=== PATIENT | male | born 1940 | race Caucasian/White ===

== ENCOUNTER 2019-10-01 09:15 | Outpatient (CLI) | payer MEDICARE, BC, OTHER, SELFPAY ==
[2019-10-01 09:52] LABS: Albumin Level 3.9 g/dL (3.5-5.1); Blood Urea Nitrogen 15 mg/dL (9-20); Calcium 8.7 mg/dL (8.4-10.2); Carbon Dioxide 27 mmol/L (22-30); Chloride 97 mmol/L (98-107); Estimated Glomerular Filt Rate > 60; Glucose 83 mg/dL (75-110); Phosphorus 3.3 mg/dL (2.5-4.5); Potassium 3.8 mmol/L (3.4-5.0); Sodium 133 mmol/L (137-145)
== END 2019-10-01 09:16 | disposition home or self-care (01) ==
PROVIDERS: PCP Nurse Practitioner Adult Health; Visit Provider Internal Medicine Nephrology
DX: N18.3 Chronic kidney disease, stage 3 (moderate) (principal); E87.1 Hypo-osmolality and hyponatremia
CPT/HCPCS: 36415; 80069; 84443

== ENCOUNTER → 2021-01-16 00:20 | Outpatient (CLI) | payer MEDICARE, BC, OTHER, SELFPAY ==
[2021-01-16 19:43] LABS: SARS-CoV-2 RNA PCR Negative
== END ==
PROVIDERS: PCP Nurse Practitioner Adult Health; Visit Provider Internal Medicine Gastroenterology
DX: Z01.812 Encounter for preprocedural laboratory examination (principal); Z20.822 Contact with and (suspected) exposure to COVID-19
CPT/HCPCS: C9803; U0003; U0005

== ENCOUNTER 2021-01-20 02:56 | Day surgery (SDC) | payer MEDICARE, BC, OTHER, SELFPAY ==
[2021-01-07 14:12] VITALS: BMI 25.7
--- NOTE | 2021-01-19 15:32 | P.PNAN_ITS ---
Anes - Initial Pre Proc Eval Procedure: Operation Date: 01/20/21 08:15 Proposed Procedures p Screening Colonoscopy - Eben Nunez MD Date/Time: 01/19/21 15:32 Surgeon: Eben Nunez MD Pre Op Diagnosis: hx of colon polyps Patient Data Age: 80 Gender: M Height: 1.88 m Weight: 91 kg Allergies Allergy/AdvReac Type Severity Reaction Status Date / Time No Known Allergies Allergy Verified 01/20/21 06:41 Home Medications Medication Instructions Recorded Confirmed Type alfuzosin 10 mg PO DAILY 01/07/21 01/07/21 History amlodipine 5 mg PO DAILY 01/07/21 01/07/21 History finasteride 5 mg PO DAILY 01/07/21 01/07/21 History sildenafil 25 mg PO DAILY PRN 01/07/21 01/07/21 History simvastatin 20 mg PO DAILY 01/07/21 01/07/21 History aspirin [Adult Aspirin] 325 mg PO DAILY 01/20/21 01/20/21 History Patient hx anesthesia problems: none Family hx anesthesia problems: none [facility] Past Medical History Medical History (Updated 01/19/21 @ 15:33 by Anselmo Henderson MD) Arthritis Atrial fibrillation BPH (benign prostatic hyperplasia) HTN (hypertension) Hypercholesterolemia Family History Family History (Updated 11/06/14 @ 08:44 by DOCTOR UNKNOWN) Mother Hypertension Father Acute myocardial infarction Social History Social History Smoking status: Never smoker Alcohol intake: current Alcohol use details: socially Substance use: never Living arrangements: with family Spiritual care concerns: No Anes - Eval Final PreProcedure Day of Procedure 01/19/21 15:32 Patient weight: normal Heart: regular rate and rhythm Lungs: clear to auscultation and normal air movement Airway: Mallampati scale class II Neurological: alert and oriented Last oral intake: >/= 8 hours ASA classification: III Emergent: no Anesthetic plan: proceed Anesthesia type and monitoring: general GIVS Informed Consent: The patient's anesthetic plan and its attendant risks and benefits were discussed with the patient/family/POA. Questions were solicited and answers provided to the satisfaction of the patient/family/POA.
[2021-01-20 06:44] VITALS: BP 138/81; PULSE 71; RESP 14; TEMP 36; O2SAT 98; BMI 25.3
[2021-01-20] MEDS: LACTATED RINGERS 1,000 ML 150 ML IV CONT (07:02)
--- NOTE | 2021-01-20 08:23 | WPDGICN ---
Assessment and Plan Assessment and plan (1) History of colon polyps: Code(s): Z86.010 - Personal history of colonic polyps Status: Acute Assessment and Plan: Patient has a distant history of colon polyps. Patient presents today for screening colonoscopy. High-fiber diet is advised. Further recommendations may be given after endoscopy. GI Consult Note Consult date/time: 01/20/21 08:23 HPI: Live Low is a 80 year old male Presents for screening colonoscopy. Patient reports that his bowel habits are normal. He denies abdominal pain. He has had no bleeding. Does have a prior history of colon polyps. Family history noncontributory. Patient presents today for screening colonoscopy. Review of Systems Review of Systems: All systems reviewed & are unremarkable except as noted in HPI and below PMFSH Past Medical History Medical History (Updated 01/20/21 @ 08:25 by Eben Nunez MD) Arthritis Atrial fibrillation BPH (benign prostatic hyperplasia) HTN (hypertension) Hypercholesterolemia Family History Family History (Updated 11/06/14 @ 08:44 by DOCTOR UNKNOWN) Mother Hypertension Father Acute myocardial infarction Social History Social History Smoking status: Never smoker Alcohol intake: current Alcohol use details: socially Substance use: never Living arrangements: with family Spiritual care concerns: No Meds Home Medications and Allergies Home Medications Medication Instructions Recorded Confirmed Type alfuzosin 10 mg PO DAILY 01/07/21 01/07/21 History amlodipine 5 mg PO DAILY 01/07/21 01/07/21 History finasteride 5 mg PO DAILY 01/07/21 01/07/21 History sildenafil 25 mg PO DAILY PRN 01/07/21 01/07/21 History simvastatin 20 mg PO DAILY 01/07/21 01/07/21 History aspirin [Adult Aspirin] 325 mg PO DAILY 01/20/21 01/20/21 History Allergies Allergy/AdvReac Type Severity Reaction Status Date / Time No Known Allergies Allergy Verified 01/20/21 06:41 Vital Signs Vital Signs - 24 hr 01/20/21 06:44 Temperature 96.8 F L Pulse Rate 71 Respiratory Rate 14 Blood Pressure 138/81 Pulse Oximetry 98 Exam Narrative: Exam Narrative: Physical exam reveals patient be alert. Vital signs stable. HEENT exam unremarkable. Patient is anicteric. Lungs are clear to auscultation and percussion. Heart is without murmur or extra sounds. Abdominal exam bowel sounds present soft nontender with no organomegaly. Digital external rectal exam is normal.
[2021-01-20 09:03] VITALS: BP 117/68; PULSE 63; RESP 14; O2SAT 93
[2021-01-20 09:13] VITALS: BP 126/71; PULSE 61; RESP 14; O2SAT 100
[2021-01-20 09:23] VITALS: BP 128/78; PULSE 60; RESP 14; O2SAT 99
== END 2021-01-20 09:52 | disposition home or self-care (01) ==
PROVIDERS: PCP Nurse Practitioner Adult Health; Visit Provider Internal Medicine Gastroenterology
PROC: 0DJD8ZZ Inspection of Lower Intestinal Tract, Via Natural or Artificial Opening Endoscopic (ICD-10-PCS; CPT 45378; principal; 2021-01-20 08:15)
DX: Z12.11 Encounter for screening for malignant neoplasm of colon (principal); D12.5 Benign neoplasm of sigmoid colon; K57.30 Diverticulosis of large intestine without perforation or abscess without bleeding; K64.8 Other hemorrhoids; K64.4 Residual hemorrhoidal skin tags; I48.91 Unspecified atrial fibrillation; I10 Essential (primary) hypertension; E78.00 Pure hypercholesterolemia, unspecified; N40.0 Benign prostatic hyperplasia without lower urinary tract symptoms; Z79.82 Long term (current) use of aspirin
CPT/HCPCS: 45385; 88305; J2001; J2704; J7120

== ENCOUNTER 2022-09-15 09:50 | Outpatient (CLI) | payer MEDICARE, BC, OTHER, SELFPAY ==
[2022-09-15 11:55] LABS: Albumin Level 4.2 g/dL (3.5-5.1)
[2022-09-15 11:57] LABS: Urine Cotinine NEGATIVE
[2022-09-15 12:10] LABS: Hemoglobin A1C 5.3 % (<5.7)
== END 2022-09-15 09:51 | disposition home or self-care (01) ==
PROVIDERS: PCP Nurse Practitioner Family; Visit Provider Orthopaedic Surgery
DX: Z01.818 Encounter for other preprocedural examination (principal); M16.11 Unilateral primary osteoarthritis, right hip
CPT/HCPCS: 80307; 82040; 83036; 87081

== ENCOUNTER 2022-11-23 09:04 | Outpatient (CLI) | payer MEDICARE, BC, OTHER, SELFPAY ==
[2022-11-23 09:58] LABS: Basophils Absolute Auto 0.1 K/mm3 (0.0-0.1); Basophils Percent Auto 1.4 % (0.2-1.2); Eosinophils Absolute Auto 0.1 K/mm3 (0-0.3); Eosinophils Percent Auto 2.4 % (0-4.4); Hematocrit 42.7 % (42.0-52.0); Hemoglobin 14.8 g/dL (14.0-18.0); Immature Granulocyte Absolute 0.01 K/mm3 (0.00-0.031); Immature Granulocyte Percent A 0.2 % (0-0.5); Lymphocytes Absolute Auto 0.85 K/mm3 (0.9-3.2); Lymphocytes Percent Auto 17.3 % (18.3-44.2); Mean Corpuscular HGB Conc 34.7 g/dl (32-36); Mean Corpuscular Hemoglobin 30.4 pg (26-34); Mean Corpuscular Volume 87.7 fl (80-100); Mean Platelet Volume 9.5 fl (7.4-10.4); Monocytes Absolute Auto 0.7 K/mm3 (0.1-0.6); Monocytes Percent Auto 13.8 % (2.6-8.5); Neutrophils Absolute Auto 3.2 K/mm3 (1.3-6.7); Neutrophils Percent Auto 64.9 % (45.5-73.1); Platelet Count Result 239 k/mm3 (150-375); Red Blood Count 4.87 M/mm3 (4.6-6.20); Red Cell Distribution Width 12.9 % (11.5-14.5); White Blood Count 4.9 K/mm3 (4.5-10.0)
[2022-11-23 10:38] LABS: Albumin Level 4.2 g/dL (3.5-5.1); Anion Gap 4 mmol/L (8-16); Blood Urea Nitrogen 15 mg/dL (9-20); Calcium 8.6 mg/dL (8.4-10.2); Carbon Dioxide 29 mmol/L (22-30); Chloride 104 mmol/L (98-107); Estimated Glomerular Filt Rate > 60; Glucose 94 mg/dL (65-110); Potassium 3.9 mmol/L (3.4-5.0); Sodium 137 mmol/L (137-145); Urine Cotinine NEGATIVE
== END 2022-11-23 09:05 | disposition home or self-care (01) ==
PROVIDERS: PCP Nurse Practitioner Family; Visit Provider Orthopaedic Surgery
DX: M16.11 Unilateral primary osteoarthritis, right hip (principal); Z01.818 Encounter for other preprocedural examination
CPT/HCPCS: 80048; 80307; 82040; 85025; 86850; 86900; 86901; 87081

== ENCOUNTER 2022-11-30 00:09 | Day surgery (SDC) | payer MEDICARE, BC, OTHER, SELFPAY ==
[2022-09-15 10:23] VITALS: BP 133/74; PULSE 74; RESP 16; TEMP 37.2; O2SAT 99; BMI 25.2
--- NOTE | 2022-09-15 10:28 | PC.NURSE ---
Report to the Outpatient Waiting Room, entrance under the green pavilion located off [facility], at time __6:00AM on date __10/05/22 . Planned Procedure Time: ___7:30AM . Time changes happen often and if your time is changed the preop area will call you the afternoon before. - You and your visitor will be asked to self-screen and do not enter if you have any COVID symptoms. - Only one visitor is requested with a max of two and NO children visitors are allowed at this time. - The patient visitor may be requested to leave or wait in car when not with patient due to distancing restrictions. - A mask is optional within the hospital. Patients may have clear liquids (water, carbonated beverages, clear teas, apple juice) until 3 hours prior to surgery with a maximum of 20 ounces. - No food from midnight until time of surgery Take the following medications with a SIP of water the morning of surgery: AMLODIPINE Medications to discontinue per physician HOLD ALL VITAMINS/SUPPLEMENTS(INCLUDING COQ10 & PREVAGEN), NSAIDS(IBUPROFEN)FOR 7 DAYS PRE-OP. REDUCE ASPIRIN TO 81MG DAILY 7 DAYS PRE-OP--09/28/[address] STEVENS Date to take last dose__09/28/22 Please no make-up, nail norwegian, hairspray, perfume, deodorant, or body powder the day of surgery. No jewelry (including any body piercings) or valuables the day of surgery, leave them at home. Please take a shower or bath the night before, or the morning of, surgery with an antibacterial soap. Wear comfortable, loose fitting clothing. Children are encouraged to wear pajamas. - Jewelry must be removed prior to entering the operating room. Rings and piercings that are not removed may be cut off. - The hospital will not accept responsibility for valuables. - Please leave all valuables, including medications, at home the day of surgery. If you are going home after surgery, a licensed wagon driver salesperson must drive you home. - NO public transportation without another adult if you receive anesthesia. - We recommend that an adult stay with you for 24 hours following discharge. - We also recommend that you do not drive, make important decision, drink alcoholic beverages, or take any drugs that were not prescribed by your health care provider for at least 24 hours after your discharge time. Follow any additional instructions given to you from your surgeon. If you or anyone in your household have experienced Covid symptoms in the past week, please notify your surgeon or the nurse liaison at the phone number below for possible testing. Telephone instructions given to __PATIENT and asked if any additional questions and then verbalized understanding. Patient advised to call surgeon office or pre surgery nurse liaison [phone] if any additional questions.
[2022-11-21 11:05] VITALS: BMI 25.2
--- NOTE | 2022-11-21 11:24 | PC.NURSE ---
Report to the Outpatient Waiting Room, entrance under the green pavilion located off [facility], at time __6:00AM on date __11/30/22 . Planned Procedure Time: __7:30AM . Time changes happen often and if your time is changed the preop area will call you the afternoon before. - You and your visitor will be asked to self-screen and do not enter if you have any COVID symptoms. - Only one visitor is requested with a max of two and NO children visitors are allowed at this time. - The patient visitor may be requested to leave or wait in car when not with patient due to distancing restrictions. - A mask is optional within the hospital at this time. Patients may have clear liquids (water, carbonated beverages, clear teas, apple juice) until 3 hours prior to surgery with a maximum of 20 ounces. - No food from midnight until time of surgery Take the following medications with a SIP of water the morning of surgery: ___AMLODIPINE DO NOT STOP ANY OF YOUR OTHER PRESCRIPTION MEDICATIONS PRIOR TO SURGERY ?EXCEPT THE FOLLOWING Medications to discontinue per physician ___HOLD ALL VITAMINS/SUPPLEMENTS 7 DAYS PRE-OP PER DR STEVENS(PER PATIENT), HOLD NSAIDS/IBUPROFEN 7 DAYS PRE-OP PER DR STVEENS, DECREASE DAILY ASPIRIN TO 81 MG STARTING 7 DAYS PRE-OP- STARTING 11/23/[address] STEVENS Date to take last dose____11/23/22 Please no make-up, nail tunisian, hairspray, perfume, deodorant, or body powder the day of surgery. No jewelry (including any body piercings) or valuables the day of surgery, leave them at home. Please take a shower or bath the night before, or the morning of, surgery with an antibacterial soap. Wear comfortable, loose fitting clothing. Children are encouraged to wear pajamas. - Jewelry must be removed prior to entering the operating room. Rings and piercings that are not removed may be cut off. - The hospital will not accept responsibility for valuables. - Please leave all valuables, including medications, at home the day of surgery. If you are going home after surgery, a licensed party bus driver must drive you home. - NO public transportation without another adult if you receive anesthesia. - We recommend that an adult stay with you for 24 hours following discharge. - We also recommend that you do not drive, make important decision, drink alcoholic beverages, or take any drugs that were not prescribed by your health care provider for at least 24 hours after your discharge time. Follow any additional instructions given to you from your surgeon. If you or anyone in your household have experienced Covid symptoms in the past week, please notify your surgeon or the nurse liaison at the phone number below for possible testing. Telephone instructions given to __PATIENT and asked if any additional questions and then verbalized understanding. Patient advised to call surgeon office or pre surgery nurse liaison [phone] if any additional questions.
--- NOTE | 2022-11-28 12:07 | PM.IMHP ---
H&P: [facility] History of Present Illness Date/Time: 11/28/22 12:07 Chief Complaint: DJD right hip Narrative: 82-year-old male patient who presents today for right anterior total hip arthroplasty. Patient's hip has been bothering him well over a year. At this point it is limiting his activities. He is finding it difficult to do activities of daily living without severe pain in the right hip. Most the pain is in the groin and anterior lateral hip. 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 He has tried different anti-inflammatories in the past without improvement of his symptoms. Patient feels this ready to proceed with total hip arthroplasty rather Than continue nonsurgical treatment. Review of Systems Review of Systems: All systems reviewed & are unremarkable except as noted in HPI and below PMFSH Past Medical History Medical History Arthritis Atrial fibrillation Basal cell carcinoma of skin BPH (benign prostatic hyperplasia) HTN (hypertension) Hypercholesterolemia Surgical History Surgical History H/O cardiac radiofrequency ablation 2014 & 2016 History of cataract extraction with lens replacement 2006 History of inguinal hernia repair, bilateral Lap BIH repair w/ 3DMax mesh 2015 History of ventral hernia repair Open ventral hernia repair with Proceed ventral patch 2014 Family History Family History Mother Hypertension Father Acute myocardial infarction Social History Social History Smoking status: Never smoker Alcohol intake: current Drinks per week: 3 Alcohol use details: approx 2 drinks per week Substance use: never Living arrangements: with family Additional living arrangements comments: Occupation/Education: retired Spiritual care concerns: No Meds Home Medications and Allergies Home Medications Medication Instructions Recorded Confirmed Type finasteride 5 mg tablet 5 mg PO DAILY 01/07/21 11/21/22 History sildenafil 25 mg tablet (Viagra) 25 mg PO DAILY PRN Sexual Activity 01/07/21 11/21/22 History amlodipine 10 mg tablet 10 mg PO QAM 02/15/21 11/21/22 History coenzyme Q10 30 mg capsule (CoQ-10) 30 mg PO DAILY 02/15/21 11/21/22 History psyllium husk 0.52 gram capsule 0.52 g PO DAILY PRN Constipation 02/15/21 11/21/22 History (Metamucil) ramipril 10 mg capsule 10 mg PO HS 02/15/21 11/21/22 History simvastatin 10 mg tablet 10 mg PO EVERY OTHER DAY 02/15/21 11/21/22 History vit C 250 mg-vit E 90 mg-zinc 40 1 tablet PO BID 02/15/21 11/21/22 History mg-copper 1 [id number] capsule (PreserVision AREDS-2) Prevagen 1 tab-cap PO DAILY 09/15/22 11/21/22 History aspirin 325 mg tablet 325 mg PO DAILY 09/15/22 11/21/22 History ibuprofen 200 mg capsule 200 mg PO Q6H PRN Pain 09/15/22 11/21/22 History triamcinolone acetonide 0.1 % 1 ea topical BID PRN Rash 09/15/22 11/21/22 History topical ointment Allergies Allergy/AdvReac Type Severity Reaction Status Date / Time No Known Allergies Allergy Verified 11/21/22 10:59 Exam Narrative: 82-year-old male alert pleasant. He is 6 ft 1 193 lb. His right hip flexes to 125, internal rotation 20 external rotation is 30. Range of motion causes some posterior lateral hip pain. He has normal abduction strength lateral position. No tenderness over the greater trochanter. Skin around the hip and groin crease are all normal. He has normal motor function in all muscle groups right lower extremity. 2+ posterior artery and 1 +Dorsalis pedis pulse. No edema in lower extremities. He has a normal stride when he walks. Resp: Auscultation: clear to auscultation bilaterally Cardio: Rate: regular rate Rhythm: regular rhythm Assessment and Plan Assessment and plan (1) Hip arthritis: Code(s
[2022-11-30] VITALS (14 sets, daily range): BP systolic 102–139; BP diastolic 51–78; PULSE 72–89; RESP 12–18; TEMP 36–36.5; O2SAT 100
--- NOTE | ~2022-11-30 | XR_ITS ---
XR hip RT 1V w AP pelvis DATE: 11/30/2022 11:21 INDICATION: Right total hip replacement TECHNIQUE: Postoperative AP and lateral views COMPARISON: None FINDINGS: Status post right total hip arthroplasty. There is expected immediately postoperative subcu taneous emphysema. Surgical drain overlies the right hip. IMPRESSION: Status post right total hip arthroplasty Reviewed, dictated and finalized at location B.
--- NOTE | ~2022-11-30 | XR_ITS ---
XR surgery orthopedic DATE: 11/30/2022 11:21 INDICATION: Right total hip replacement TECHNIQUE: Spot anteroposterior C-arm images of right hip 52.6 seconds fluoroscopy time 12.51 mGy COMPARISON: None FINDINGS: Status post right total hip arthroplasty with normal alignment of the acetabular and femora l components on this single AP view. IMPRESSION: Right total hip arthroplasty Reviewed, dictated and finalized at [facility]. Reviewed, dictated and finalized at location B.
[2022-11-30] MEDS: ACETAMINOPHEN 500 MG TABLET 1000 MG PO ×2 (06:31→18:15)
[2022-11-30] MEDS: LACTATED RINGERS 1,000 ML 30 ML IV CONT ×2 (06:38→11:23)
[2022-11-30] MEDS: TRANEXAMIC ACID 1,000MG/ISO100 1,000 MG/100 ML BAG 200 MG IVPB (07:06)
--- NOTE | 2022-11-30 07:07 | WPDANESEPPF ---
Anes - Initial Pre Proc Eval Procedure: Operation Date: 11/30/22 07:30 Proposed Procedures p Right Total Hip Arthroplasty, Anterior Approach - Javier Zazueta MD Date/Time: 11/30/22 07:07 Surgeon: Javier Zazueta MD Pre Op Diagnosis: O A Right Hip Patient Data Age: 82 Gender: M Height: 1.85 m Weight: 85.6 kg Last Vital Signs Temp 97.5 F L 11/30/22 06:12 Pulse 78 11/30/22 06:12 Resp 16 11/30/22 06:12 BP 139/75 11/30/22 06:12 Pulse Ox 100 11/30/22 06:12 O2 Del Method Room Air 11/30/22 06:12 Allergies Allergy/AdvReac Type Severity Reaction Status Date / Time No Known Allergies Allergy Verified 11/30/22 06:21 Home Medications Medication Instructions Recorded Confirmed Type finasteride 5 mg tablet 5 mg PO DAILY 01/07/21 11/30/22 History sildenafil 25 mg tablet (Viagra) 25 mg PO DAILY PRN Sexual Activity 01/07/21 11/30/22 History amlodipine 10 mg tablet 10 mg PO QAM 02/15/21 11/30/22 History coenzyme Q10 30 mg capsule (CoQ-10) 30 mg PO DAILY 02/15/21 11/30/22 History psyllium husk 0.52 gram capsule 0.52 g PO DAILY PRN Constipation 02/15/21 11/30/22 History (Metamucil) ramipril 10 mg capsule 10 mg PO HS 02/15/21 11/30/22 History simvastatin 10 mg tablet 10 mg PO EVERY OTHER DAY 02/15/21 11/30/22 History vit C 250 mg-vit E 90 mg-zinc 40 1 tablet PO BID 02/15/21 11/30/22 History mg-copper 1 [id number] capsule (PreserVision AREDS-2) Prevagen 1 tab-cap PO DAILY 09/15/22 11/30/22 History aspirin 325 mg tablet 325 mg PO DAILY 09/15/22 11/30/22 History ibuprofen 200 mg capsule 200 mg PO Q6H PRN Pain 09/15/22 11/30/22 History triamcinolone acetonide 0.1 % 1 ea topical BID PRN Rash 09/15/22 11/30/22 History topical ointment aspirin 81 mg tablet,delayed 81 mg PO DAILY 11/30/22 11/30/22 History release Patient hx anesthesia problems: none Family hx anesthesia problems: none Results Review: All pre-operative results and documents have been reviewed as part of the pre-operative evaluation. [facility] Past Medical History Medical History Arthritis Atrial fibrillation Basal cell carcinoma of skin BPH (benign prostatic hyperplasia) HTN (hypertension) Hypercholesterolemia Surgical History Surgical History H/O cardiac radiofrequency ablation 2014 & 2015 History of cataract extraction with lens replacement 2005 History of inguinal hernia repair, bilateral Lap BIH repair w/ 3DMax mesh 2014 History of ventral hernia repair Open ventral hernia repair with Proceed ventral patch 2014 Family History Family History Mother Hypertension Father Acute myocardial infarction Social History Social History Smoking status: Never smoker Alcohol intake: current Drinks per week: 3 Alcohol use details: approx 2 drinks per week Substance use: never Living arrangements: with family Additional living arrangements comments: Occupation/Education: retired Spiritual care concerns: No Anes - Eval Final PreProcedure Day of Procedure 11/30/22 07:07 Patient weight: normal Heart: regular rate and rhythm Lungs: clear to auscultation Airway: Mallampati scale class II Neurological: alert and oriented Last oral intake: >/= 8 hours ASA classification: III Emergent: no Anesthetic plan: proceed Anesthesia type and monitoring: general ETT and standard monitoring Results Review: All pre-operative results and documents have been reviewed as part of the pre-operative evaluation. Informed Consent: The patient's anesthetic plan and its attendant risks and benefits were discussed with the patient/family/POA. Questions were solicited and answers provided to the satisfaction of the patient/family/POA.
--- NOTE | 2022-11-30 07:12 | WPDHPUPDATE1 ---
History and Physical Update Update Date/Time: 11/30/22 07:12 History and Physical has been reviewed, including an updated exam of the patient. There are NO changes in the patient's condition. Risks, benefits, and alternatives have been discussed and questions answered. Patient agrees to proceed with procedure.
[2022-11-30] MEDS: ceFAZolin 2 GM/D5W 50 ML 2 GM/50 ML BAG IVPB (07:36)
[2022-11-30] MEDS: ceFAZolin SODIUM 1 GM VIAL 3 GM (08:43)
[2022-11-30] MEDS: TRANEXAMIC ACID 1,000 MG/10 ML AMPUL 1000 MG IV PUSH (10:48)
[2022-11-30] MEDS: ceFAZolin SODIUM 1 GM VIAL 2 GM IV PUSH (10:50)
--- NOTE | 2022-11-30 11:15 | W.PM.PROC2 ---
Procedure Note - Detailed Date of Procedure 11/30/22 Pre-op Diagnosis O A Right Hip Post-op Diagnosis Same Procedure Performed Right TEE Surgeon Javier Zazueta MD Speed [employer] Sander Moisés Anesthesia General Description of Procedure Patient was brought to the operating room and general anesthesia was administered. He received 2 g of Ancef weight based vancomycin 1 g of tranexamic acid preoperatively. A small diameter Christian catheter was placed. The feet were padded boots applied [facility] the right hip prepped draped usual fashion. A 10 cm longitudinal incision was made starting 3 cm lateral to the ASIS. The fascia over the tensor fascia dieter muscle was longitudinally incised and elevated off the anterior portion of the muscle. Branches of the ascending lateral femoral circumflex vessels were isolated ligated with suture divided. Retractor was placed along the anterior capsule the hip abducted and internally rotated and the gluteus minimus elevated off the lateral capsule. Inverted T capsulotomy performed femoral neck osteotomy made according to preoperative templating. Femoral head measured 55 mm in diameter was markedly hypertrophic. Acetabulum was exposed labrum excised residual articular cartilage curetted. The leg was externally rotated extended and the interval between conjoined tendon and piriformis incised which allowed piriformis to flipped posteriorly and the conjoined tendon to recess a little bit. With the leg back in the horizontal position and traction acetabulum was exposed and reamed to 54 mm which did not quite get to the periphery and we reamed to 55 and then like reaming with a 56. Fifty-six shell was impacted at 40? of abduction and anteversion such that the anterior shell was just under the anterior acetabular rim and posterior shell was a few mm proud of the posterior rim posterior superiorly. An excellent Press-Fit was achieved. A single screw was placed in the ilium. Thirty-six inner diameter polyethylene liner fully seated. This was a Depuy Bell cup. Large anterior inferior inferior osteophytes were removed. Next the femur was externally rotated extended and we broached up to a size 8. With the high offset 1.5 neck the hip was too tight and we could see that our neck cut and broach I was a little bit too high. We countersunk the broach and additional 3 mm and broached up to a size 9 which still had a little bit of with the family went to a size 10 which was rock solid. We trialed with the-2 head and this gave us appropriate soft tissue tension and Shuck and AP pelvis showed equal leg lengths. We calcar planed was surface and impacted the size 10 Actis high offset stem without difficulty. No cracks in the calcar. We trialed 1 last time with the-2 and had appropriate soft tissue tension and stability. The -2 stainless steel head was impacted on the clean and dried trunnion. The hip reduced stability reconfirmed. Wesley the superior capsular flap edges were reapproximated with 2 vicryl. I am going to estimate total blood loss at 450 approximately. Additional 2 g of Ancef and 1 g of TXA were given at time of wound closure. Bone quality was excellent we will allow weight-bearing as tolerated. No known complications. [employer] Estimated Blood Loss 450 Complications No immediate complications Condition Stable
--- NOTE | 2022-11-30 11:33 | PM.OP ---
Procedure Note - Brief Procedure Note - Brief Date of procedure: 11/30/22 Pre-op diagnosis: O A Right Hip Right hip DJD Procedure performed: Right anterior total hip arthroplasty Description of procedure: 82-year-old male who underwent right anterior total hip arthroplasty on 11/30. Was involved procedure including positioning patient on your table in 1st assisting to time surgery. Total time spent was 4 hours Surgeon: SANDRA Antonio
[2022-11-30] MEDS: fentaNYL CITRATE INJ (*CRX) 100 MCG/2 ML VIAL 25 MCG IV PUSH ×8 (11:40→12:16)
[2022-11-30] MEDS: oxyCODONE HCL (*CRX) 5 MG TAB IR PO ×3 (15:24→20:57)
[2022-11-30] MEDS: ceFAZolin 1 GM/NS 50 ML 1 GM/50 ML BAG IVPB (15:24)
--- NOTE | 2022-11-30 18:00 | WPDCN ---
Assessment and Plan Assessment and plan (1) Arthritis of right hip: Code(s): M16.11 - Unilateral primary osteoarthritis, right hip Status: Acute Assessment and Plan: Postoperative day 0 status post right total hip arthroplasty. Wound care, pain control, and DVT prophylaxis deferred to Dr. Zazueta. Agree with PT/OT. Baseline labs in a.m. (2) Postoperative urinary retention: Code(s): N99.89 - Other postprocedural complications and disorders of genitourinary system; R33.8 - Other retention of urine Status: Acute Assessment and Plan: Straight catheterization x1. Monitor strict I/O and bladder scan Q shift. (3) Hypertension: Code(s): I10 - Essential (primary) hypertension Status: Acute Assessment and Plan: Blood pressures were reviewed and they have been stable postoperatively. Continue antihypertensives and monitor. (4) Benign prostatic hyperplasia: Code(s): N40.0 - Benign prostatic hyperplasia without lower urinary tract symptoms Status: Acute Assessment and Plan: Continue finasteride. Monitor for retention as above. (5) Dyslipidemia: Code(s): E78.5 - Hyperlipidemia, unspecified Status: Acute Assessment and Plan: Resume simvastatin and check LFTs in a.m.. Plan Thank you for allowing us to participate in this patient's care. Please do not hesitate to contact us with any questions. HPI Data of Consult Date/Time: 11/30/22 18:00 Requesting Physician: Javier Zazueta MD Consult Narrative Reason for consult: Post operative medical managment. Narrative: This is a very pleasant 82-year-old male with right hip osteoarthritis, hypertension, hyperlipidemia, atrial fibrillation status post cardiac ablation, benign prostatic hyperplasia, and prostate cancer whom the hospitalist service has been consulted for help managing his medical conditions postoperatively. He has had longstanding right hip pain for years not amenable to conservative outpatient treatment he elected for replacement today. Surgery was performed under general anesthesia with no immediate complications documented an estimated blood loss of 450 mL. Postoperatively he is doing well and has minimal discomfort. He has some aching pain when ambulating but nothing that is unbearable. He has been up to the chair and to the bathroom with a walker without issue. He has not urinated since surgery despite having the urge. He denies fever, chills, sweats, chest pain, shortness a breath, nausea, and vomiting. He also denies paresthesias, skin color, and temperature changes distal to the surgical site. No history of venous thromboembolism. Review of Systems Review of Systems: Twelve systems were reviewed and are negative except for as per HPI. [facility] Past Medical History Medical History (Updated 11/30/22 @ 23:34 by Elena Juarez PA-C) Arthritis Atrial fibrillation Status post cardiac ablation. Basal cell carcinoma of skin Benign prostatic hyperplasia Dyslipidemia Hypertension Paroxysmal atrial flutter Surgical History Surgical History (Updated 11/30/22 @ 18:29 by Elena Juarez PA-C) History of bilateral cataract extraction History of cardiac radiofrequency ablation 2014 and 2015 History of cataract extraction with lens replacement (2005) History of colonoscopy with polypectomy History of inguinal hernia repair, bilateral (2014) Laparoscopic bilateral inguinal hernia repair w/ 3DMax mesh. History of tonsillectomy History of total right hip arthroplasty (11/30/22) History of umbilical hernia repair History of ventral hernia repair (2014) Open ventral hernia repair with Proceed ventral patch. Status post excision of lipoma Family History Family History (Updated 11/30/22 @ 18:27 by Elena Juarez PA-C) Mother Hypertension Congestive heart failure Father Acute myocardial infarction Social History Social History (Updated
[2022-11-30] MEDS: SENNA/DOCUSATE SODIUM TABLET 2 TAB PO (18:16)
[2022-11-30] MEDS: FAMOTIDINE 20 MG TABLET PO (20:57)
[2022-12-01 00:01] VITALS: PULSE 76
[2022-12-01] MEDS: oxyCODONE HCL (*CRX) 5 MG TAB IR PO ×3 (00:07→08:22)
[2022-12-01] MEDS: ceFAZolin 1 GM/NS 50 ML 1 GM/50 ML BAG IVPB ×2 (00:07→05:57)
[2022-12-01] MEDS: ACETAMINOPHEN 500 MG TABLET 1000 MG PO ×2 (00:07→05:56)
[2022-12-01 02:21] VITALS: BP 139/65; PULSE 82; RESP 14; TEMP 36.1; O2SAT 97
[2022-12-01 06:21] VITALS: BP 149/80; PULSE 78; RESP 16; TEMP 36.6; O2SAT 100
[2022-12-01 06:28] LABS: Basophils Percent Auto 0.3 % (0.2-1.2); Eosinophils Percent Auto 0.1 % (0-4.4); Hematocrit 35.6 % (42.0-52.0); Hemoglobin 11.8 g/dL (14.0-18.0); Immature Granulocyte Absolute 0.07 K/mm3 (0.00-0.031); Immature Granulocyte Percent A 0.5 % (0-0.5); Lymphocytes Absolute Auto 0.78 K/mm3 (0.9-3.2); Lymphocytes Percent Auto 5.6 % (18.3-44.2); Mean Corpuscular HGB Conc 33.1 g/dl (32-36); Mean Corpuscular Hemoglobin 30.4 pg (26-34); Mean Corpuscular Volume 91.8 fl (80-100); Monocytes Absolute Auto 1.9 K/mm3 (0.1-0.6); Monocytes Percent Auto 13.6 % (2.6-8.5); Neutrophils Absolute Auto 11.1 K/mm3 (1.3-6.7); Neutrophils Percent Auto 79.9 % (45.5-73.1); Platelet Count Result 191 k/mm3 (150-375); Red Blood Count 3.88 M/mm3 (4.6-6.20); Red Cell Distribution Width 12.9 % (11.5-14.5); White Blood Count 13.9 K/mm3 (4.5-10.0)
[2022-12-01 06:37] LABS: Alanine Aminotransferase 18 U/L (6-50); Albumin Level 3.2 g/dL (3.5-5.1); Alkaline Phosphatase 54 U/L (38-126); Anion Gap 3 mmol/L (8-16); Aspartate Amino Transferase 25 U/L (17-59); Bilirubin,Total 0.6 mg/dL (0.2-1.3); Blood Urea Nitrogen 16 mg/dL (9-20); Carbon Dioxide 26 mmol/L (22-30); Chloride 103 mmol/L (98-107); Estimated CRCL calculation 51 ml/min; Estimated Glomerular Filt Rate > 60; Glucose 119 mg/dL (65-110); Magnesium 2.2 mg/dL (1.6-2.3); Sodium 132 mmol/L (137-145)
--- NOTE | 2022-12-01 07:00 | PC.NURSE ---
Patient tonight was retaining urine last night, (which was observed through a bladder scan and had an output of 632) so did a straight catheterization on patient and had an output of 425 output from patient (in addition prior patient was able to have an output of 200. Throughout the rest of the shift patient had difficulties urinating and after the straight cath patient was having urine with blood tinge color and small blood clots in the urine.
[2022-12-01 07:37] VITALS: PULSE 73
--- NOTE | 2022-12-01 07:46 | PM.PNORT ---
Subjective Subjective Date/Time Seen: 12/01/22 07:46 postop day 1 patient is alert. Afebrile vital signs are stable. Morning labs are noted. Patient is having blood in his urine last night. It has improved this morning to being only a scant amount. He has a history of BPH. He has been urinating well. He did require straight cath last night but was urinating this morning when arrived. He is having no pain with urination. His drain is out. Pain is well tolerated. Dressing is dry and intact. Neurovascularly he is intact. Will plan to have the patient work with physical therapy this morning if he continues to do well he will be discharged home later this morning. I strongly advised patient that if he has changes in the blood in the urine of any worsening he needs to call his urologist. It has been improving overnight and I think that most likely this will continue to improve. He did have Christian catheter at the time of surgery which probably caused some irritation of his prostate. Patient is going to monitor this at home. Objective Data Vital Signs Vital Signs: Vital Signs - 24 hr 11/30/22 11:23 11/30/22 11:35 11/30/22 11:50 Temperature 36.1 C L Pulse Rate 72 85 81 Respiratory Rate 13 12 12 Blood Pressure 102/51 L 121/63 129/68 Pulse Oximetry 100 100 100 Oxygen Delivery Simple Face Mask Simple Face Mask Simple Face Mask Oxygen Flow Rate 6 6 6 11/30/22 11:55 11/30/22 12:05 11/30/22 12:20 Temperature 36.5 C Pulse Rate 80 80 Respiratory Rate 14 16 Blood Pressure 128/75 125/67 Pulse Oximetry 100 100 Oxygen Delivery Room Air Room Air Room Air Oxygen Flow Rate 11/30/22 12:35 11/30/22 14:15 11/30/22 12:36 Temperature 36.1 C L Pulse Rate 81 89 Respiratory Rate 14 17 Blood Pressure 118/78 115/70 Pulse Oximetry 100 100 Oxygen Delivery Room Air Room Air Oxygen Flow Rate 11/30/22 12:51 11/30/22 13:21 11/30/22 14:21 Temperature 36.0 C L 36.3 C L 36.4 C L Pulse Rate 82 81 82 Respiratory Rate 18 18 18 Blood Pressure 130/63 125/62 130/62 Pulse Oximetry 100 100 100 Oxygen Delivery Oxygen Flow Rate 11/30/22 18:21 11/30/22 15:04 11/30/22 20:35 Temperature 36.3 C L 36.0 C L Pulse Rate 84 78 Respiratory Rate 17 16 Blood Pressure 122/70 138/69 Pulse Oximetry 100 100 Oxygen Delivery Room Air Oxygen Flow Rate 12/01/22 02:06 11/30/22 20:00 12/01/22 00:01 Temperature Pulse Rate 76 76 Respiratory Rate Blood Pressure Pulse Oximetry Oxygen Delivery Room Air Oxygen Flow Rate 12/01/22 07:37 Temperature Pulse Rate 73 Respiratory Rate Blood Pressure Pulse Oximetry Oxygen Delivery Oxygen Flow Rate Intake/Output Intake/Output: Intake & Output 11/28/22 11/29/22 11/30/22 12/01/22 23:59 23:59 23:59 23:59 Intake Total 1140 50 Output Total 425 45 Balance 715 5 Meds/Results Medications: Active Medications Generic Name Dose Route Start Last Admin Trade Name Freq PRN Reason Stop Dose Admin Acetaminophen 1,000 mg 11/30/22 18:00 12/01/22 05:56 Acetaminophen 500 Mg Tablet PO 1,000 mg Q6HR [facility] Administration Amlodipine Besylate 10 mg 12/01/22 09:00 Amlodipine Besylate 5 Mg Tablet PO QAM [facility] Apixaban 2.5 mg 12/01/22 09:00 Apixaban 2.5 Mg Tablet PO 12/12/22 21:01 Q12HR ADRYAN Aspirin 81 mg 12/01/22 09:00 Aspirin 81 Mg Enteric Tablet PO DAILY ADRYAN Celecoxib 100 mg 12/01/22 08:00 Celecoxib 100 Mg Capsule PO DAILY@0800 [facility] Diphenhydramine HCl 25 mg 11/30/22 12:36 Diphenhydramine Hcl Inj 50 Mg/Ml Vial IV PUSH Q6H PRN Itching Doxycycline Hyclate 100 mg 12/01/22 09:00 Doxycycline Hyclate 100 Mg Tablet PO Q12HR [facility] Famotidine 20 mg 11/30/22 21:00 11/30/22 20:57 Famotidine 20 Mg Tablet PO 20 mg Q12HR [facility] Administration Finasteride 5 mg 12/01/22 09:00 Finasteride 5 Mg Tablet PO DAILY [facility] Naloxone HCl 0.1 mg 11/30/22 12:
--- NOTE | 2022-12-01 07:52 | PM.DS ---
DS: Admitting Diagnosis Discharge Date 12/01 Admitting Diagnosis Right hip DJD DS: Discharge Diagnosis Discharge Diagnosis (1) Arthritis of right hip: Code(s): M16.11 - Unilateral primary osteoarthritis, right hip Status: Acute DS: Summary Hospital Course Hospital Course: 82-year-old male who underwent right anterior total hip arthroplasty on 11/30. Underwent the procedure without complications. Postoperatively he has been afebrile vital signs stable. Neurovascular is intact. His drain has been removed. He was up walking the day of surgery he is comfortable. Pain overall is well controlled. He is on scheduled Tylenol as well as oxycodone 5 mg. He is also on Celebrex 100 mg a day for 10 days for heterotopic bone prophylaxis. He did have blood in his urine postoperatively on the day of surgery. It has improved significantly on the morning of postop day 1 there was only a scant amount. Patient has history of BPH. He has been urinating well. He did require straight catheterization the day of surgery that night. Both urinating on the morning of postop day 1. He is having no pain with urination overall he is doing well. Dressing is dry and intact. He is on Eliquis for DVT prophylaxis he will be discharged home. Will go home with 1 week of doxycycline. He is going to be on oxycodone Tylenol for pain control. He will also go home on Senokot and MiraLax for constipation. Patient was advised to keep leg elevated home prevent swelling but may be up walking every hour. Using a walker at this point. He was advised any questions or concerns she is to call the office otherwise we will see him at his appointment dates. I also advised patient if there is worsening of any of the blood in his urine and he needs to call his urologist immediately and he will keep that in mind. Time Spent with Patient Time attestation: Total time spent providing and/or coordinating discharge services: DS: Data Data Completed and Pending Labs on day of discharge: Labs from last 24 hours 12/01/22 12/01/22 05:50 05:49 WBC 13.9 H RBC 3.88 L Hgb 11.8 L D Hct 35.6 L MCV 91.8 MCH 30.4 MCHC 33.1 RDW 12.9 Plt Count 191 MPV 10.0 Immature Gran % (Auto) 0.5 Neut % (Auto) 79.9 H Lymph % (Auto) 5.6 L Lassen % (Auto) 13.6 H Eos % (Auto) 0.1 Baso % (Auto) 0.3 Lymph # (Auto) 0.78 L Lassen # (Auto) 1.9 H Eos # (Auto) 0.0 Baso # (Auto) 0.0 Abs Immat Gran (auto) 0.07 H Absolute Neuts (auto) 11.1 H Absolute Nucleated RBC 0.0 Nucleated RBC % 0.0 Sodium 132 L Potassium 4.0 Chloride 103 Carbon Dioxide 26 Anion Gap 3 L BUN 16 Creatinine 1.10 Estim Creat Clear Calc 51 Estimated GFR > 60 Glucose 119 H Calcium 8.0 L Magnesium 2.2 Total Bilirubin 0.6 Direct Bilirubin 0.0 AST 25 ALT 18 Alkaline Phosphatase 54 Total Protein 6.0 L Albumin 3.2 L Discharge Plan Discharge Patient Disposition: Home, Self-Care Discharge Instructions: JAVIER ZAZUETA M.D [facility], [address] [address] POST-OPERATIVE DISCHARGE INSTRUCTIONS ANTERIOR TOTAL HIP ARTHROPLASTY 1. Move toes/feet up and down every hour while awake. 2. Be up walking every hour while awake. 3. Use cane in hand opposite of side of hip surgery or walker as comfort allows. Avoid sitting in a chair unless eating, receiving visitors or using the toilet. 4. When resting, lie on back with leg elevated above heart to minimize swelling. Significant swelling could indicate a blood clot and if this occurs, call the office (or go to the ER) to have a venous ultrasound performed. 5. Wound Care: Keep dry sponge on wound for 2 weeks. Use minimal tape. 6. Follow weight bearing status as instructed. 7. May shower with dressing off. Stand Alone Forms: General Discharge Instructions Follow-up/Referrals: Javier Zazueta
[2022-12-01 08:00] VITALS: PULSE 70
[2022-12-01] MEDS: CELECOXIB 100 MG CAPSULE PO (08:22)
[2022-12-01] MEDS: amLODIPine BESYLATE 5 MG TABLET 10 MG PO (08:22)
[2022-12-01] MEDS: DOXYCYCLINE HYCLATE 100 MG TABLET PO (08:22)
[2022-12-01] MEDS: FAMOTIDINE 20 MG TABLET PO (08:22)
[2022-12-01] MEDS: FINASTERIDE 5 MG TABLET PO (08:22)
[2022-12-01] MEDS: APIXABAN 2.5 MG TABLET PO (08:22)
[2022-12-01] MEDS: ASPIRIN 81 MG ENTERIC TABLET PO (08:23)
[2022-12-01] MEDS: polyethylene glycoL 3350 17 GM POWD.PACK PO (08:23)
[2022-12-01] MEDS: SENNA/DOCUSATE SODIUM TABLET 2 TAB PO (08:23)
--- NOTE | 2022-12-01 09:45 | PM.IMPN ---
Progress Note: A&P Assessment and Plan (1) Arthritis of right hip: Code(s): M16.11 - Unilateral primary osteoarthritis, right hip Status: Acute Assessment and Plan: Postoperative day 1 status post right total hip arthroplasty. Wound care, pain control, and DVT prophylaxis deferred to Dr. Zazueta. Agree with PT/OT. Baseline labs in a.m. (2) Postoperative urinary retention: Code(s): N99.89 - Other postprocedural complications and disorders of genitourinary system; R33.8 - Other retention of urine Status: Acute Assessment and Plan: Straight catheterization x1. Monitor strict I/O and bladder scan Q shift. (3) Hypertension: Code(s): I10 - Essential (primary) hypertension Status: Acute Assessment and Plan: Blood pressures were reviewed and they have been stable postoperatively. Continue antihypertensives and monitor. (4) Benign prostatic hyperplasia: Code(s): N40.0 - Benign prostatic hyperplasia without lower urinary tract symptoms Status: Acute Assessment and Plan: Continue finasteride. Monitor for retention as above. (5) Dyslipidemia: Code(s): E78.5 - Hyperlipidemia, unspecified Status: Acute Assessment and Plan: Resume simvastatin and check LFTs in a.m.. Time Spent With Patient Time: 48 minutes Time with patient: Greater than 35 minutes Subjective Date/time seen: 12/01/22944 Interval history: 12/01/22944 Patient is doing ok. He is ready to go. He does have some pain which he stated that it was a 5/10 in the right leg. Labs and vital signs look good. Went over the results with him and answered all his questions. Stable at this time for discharge. 11/30/22? 18:00 This is a very pleasant 82-year-old male with right hip osteoarthritis, hypertension, hyperlipidemia, atrial fibrillation status post cardiac ablation, benign prostatic hyperplasia, and prostate cancer whom the hospitalist service has been consulted for help managing his medical conditions postoperatively. He has had longstanding right hip pain for years not amenable to conservative outpatient treatment he elected for replacement today. Surgery was performed under general anesthesia with no immediate complications documented an estimated blood loss of 450 mL. Postoperatively he is doing well and has minimal discomfort. He has some aching pain when ambulating but nothing that is unbearable. He has been up to the chair and to the bathroom with a walker without issue. He has not urinated since surgery despite having the urge. He denies fever, chills, sweats, chest pain, shortness a breath, nausea, and vomiting. He also denies paresthesias, skin color, and temperature changes distal to the surgical site. No history of venous thromboembolism. Review of Systems Review of Systems: All systems reviewed & are unremarkable except as noted in HPI and below Exam Narrative: General: well-nourished, well-appearing 82-year-old female, sitting up in chair, comfortable, NARD Neuro: awake, alert and oriented x4, speech clear, no focal neuro deficits noted HEENMT: normocephalic, atraumatic, EOMI, sclerae anicteric, moist oral mucosa Respiratory: Clear to auscultation bilaterally without crackles, rhonchi or wheezes, nonlabored breathing Cardio: regular rate, regular rhythm with S1-S2 Abdomen: nondistended, normoactive bowel sounds, soft, nontender to palpation Extremities: no edema, erythema, or tenderness to palpation, DP pulses 2+ bilaterally, right hip with dressing dry and intact Skin: no rashes or lesions, warm and dry, right hip dressing intact Psych: appropriate mood and affect, judgment and insight intact Objective Data Vital Signs Vital Signs: Vital Signs - 24 hr 11/30/22 12:05 11/30/22 12:20 11/30/22 12:35 Temperature 97.7 F Pulse Rate 80 80 81 Respiratory Rate 14 16 14 Blood Pressure 128/75 125/67 118/78 Pulse Oximetry 100 100 100 Oxygen Deliv
--- NOTE | 2022-12-01 09:50 | P.PNAN_ITS ---
Anes - Prog Note Post-Op Date/Time: 12/01/22 09:50 Cardiovascular status: normal Respiratory status: normal Airway patency: baseline Mental status: baseline Post-Op hydration status: normal Vital Signs: Last Vital Signs Temp 36.6 C 12/01/22 06:21 Pulse 73 12/01/22 07:37 Resp 16 12/01/22 06:21 BP 149/80 H 12/01/22 06:21 Pulse Ox 100 12/01/22 06:21 O2 Del Method Room Air 12/01/22 02:06 O2 Flow Rate 6 11/30/22 11:50 Pain Score (VAS): 11/11 I/O: Intake & Output 11/30/22 12/01/22 12/01/22 23:59 07:59 15:59 Intake Total 490 300 Output Total 425 1545 Balance 65 -1245 Laboratory Tests 12/01/22 05:50 12/01/22 05:49 12/01/22 12/01/22 05:49 05:50 WBC 13.9 H RBC 3.88 L Hgb 11.8 L D Hct 35.6 L MCV 91.8 MCH 30.4 MCHC 33.1 RDW 12.9 Plt Count 191 MPV 10.0 Immature Gran % (Auto) 0.5 Neut % (Auto) 79.9 H Lymph % (Auto) 5.6 L Webster % (Auto) 13.6 H Eos % (Auto) 0.1 Baso % (Auto) 0.3 Lymph # (Auto) 0.78 L Webster # (Auto) 1.9 H Eos # (Auto) 0.0 Baso # (Auto) 0.0 Abs Immat Gran (auto) 0.07 H Absolute Neuts (auto) 11.1 H Absolute Nucleated RBC 0.0 Nucleated RBC % 0.0 Sodium 132 L Potassium 4.0 Chloride 103 Carbon Dioxide 26 Anion Gap 3 L BUN 16 Creatinine 1.10 Estim Creat Clear Calc 51 Estimated GFR > 60 Glucose 119 H Calcium 8.0 L Magnesium 2.2 Total Bilirubin 0.6 Direct Bilirubin 0.0 AST 25 ALT 18 Alkaline Phosphatase 54 Total Protein 6.0 L Albumin 3.2 L Post-procedural complaints: none Patient Feedback: Patient satisfied with anesthetic care.
== END 2022-12-01 11:29 | disposition home or self-care (01) ==
LOC: ANHSURGERY 06:00 → ANH3MEDSUR 12:39
PROVIDERS: Physician Assistant; Physician Assistant Surgical; PCP Nurse Practitioner Family; Visit Provider Orthopaedic Surgery
PROC: (CPT 27130; principal; 2022-11-30 07:30)
DX: M16.11 Unilateral primary osteoarthritis, right hip (principal); N99.89 Other postprocedural complications and disorders of genitourinary system; R33.8 Other retention of urine; R31.9 Hematuria, unspecified; I10 Essential (primary) hypertension; E78.5 Hyperlipidemia, unspecified; N40.0 Benign prostatic hyperplasia without lower urinary tract symptoms; Z79.82 Long term (current) use of aspirin
CPT/HCPCS: 27130; 36415; 73501; 80048; 80076; 83735; 85025; 97110; 97116; 97161; 97165; 97530; 97535; 99199; A9270; C1776; J0171; J0690; J1100; J1170; J1885; J2270; J2405; J2704; J2710; J2795; J3010; J3370; J7040; J7120

== ENCOUNTER 2023-01-03 13:10 | Emergency (ER) | payer MEDICARE, BC, OTHER, SELFPAY ==
--- NOTE | ~2023-01-03 | CT_ITS ---
EXAMINATION: CT abdomen pelvis w con DATE: 01/03/2023 16:32 INDICATION: suprapubic pain, RLQ pain TECHNIQUE: Computed tomography (CT) of the abdomen and pelvis was performed with 100 mL Omnipaque-350 intravenous contrast. Automated exposure control and iterative reconstruction technique were employe d. The dose-length product was 540.90 mGy-cm. COMPARISON: 12/26/2017. FINDINGS: Lower thorax: Coronary, aortic valve, and mitral calcifications. Bibasilar scar/atelectasis. Liver: Normal. Biliary/Gallbladder: Cholelithiasis. No bile duct dilation. Pancreas: No mass or duct dilation. Spleen: Normal. Adrenals:No mass. Kidneys: Right midpole simple cyst. Bilateral parapelvic cysts. No mass, stone, or hydronephrosis. GI tract: No small or large bowel dilation. Appendix not visualized and may be surgically absent. Col onic diverticulosis. Small focus of pericolonic inflammatory change adjacent to the proximal sigmoid in the right lower quadrant. Mesentery/Peritoneum: No ascites, mass, or free air. Retroperitoneum: No mass. Pelvis: Bladder wall thickening and a mostly decompressed urinary bladder. Prostatomegaly. Pelvic det ail obscured by metal artifact. Soft Tissues: Soft tissues and body wall unremarkable. Bones: No acute osseous finding. Incompletely visualized uncomplicated appearing right total hip art hroplasty IMPRESSION: Acute uncomplicated diverticulitis, involving a segment of the sigmoid colon in the right lower quadr ant. Reviewed, dictated and finalized at location K. IMPRESSION: Acute uncomplicated diverticulitis, involving a segment of the sigmoid colon in the right lower quadrant.
[2023-01-03 13:14] VITALS: BP 134/71; PULSE 95; RESP 18; TEMP 36.3; O2SAT 95
--- NOTE | 2023-01-03 14:06 | ED.GENADULT ---
HPI - General Adult General Chief complaint: Unspecified Stated complaint: constipation, feel like I have a prostate infec. Time Seen by Provider: 01/03/23 13:47 History of Present Illness HPI narrative: Patient is an 82-year-old male presenting with abdominal complaints. Patient states that he has been having suprapubic and lower abdominal pain for the last several days. States that he sometimes has pain when he pees. Denies hematuria. States that he has had a prostate infection in the past and this sort of feels like that. States that he has also been constipated. States that he had a small bowel movement earlier today. No melena or hematochezia. Denies fevers, headache, chest pain, shortness of breath, cough, vomiting, leg swelling. Related Data Home Medications Medication Instructions Recorded Confirmed finasteride 5 mg tablet 5 mg PO DAILY 01/07/21 11/30/22 sildenafil 25 mg tablet (Viagra) 25 mg PO DAILY PRN Sexual Activity 01/07/21 11/30/22 amlodipine 10 mg tablet 10 mg PO QAM 02/15/21 11/30/22 coenzyme Q10 30 mg capsule (CoQ-10) 30 mg PO DAILY 02/15/21 11/30/22 ramipril 10 mg capsule 10 mg PO HS 02/15/21 11/30/22 simvastatin 10 mg tablet 10 mg PO EVERY OTHER DAY 02/15/21 11/30/22 vit C 250 mg-vit E 90 mg-zinc 40 1 tablet PO BID 02/15/21 11/30/22 mg-copper 1 [id number] capsule (PreserVision AREDS-2) Prevagen 1 tab-cap PO DAILY 09/15/22 11/30/22 triamcinolone acetonide 0.1 % 1 ea topical BID PRN Rash 09/15/22 11/30/22 topical ointment aspirin 81 mg tablet,delayed 81 mg PO DAILY 11/30/22 11/30/22 release Allergies Allergy/AdvReac Type Severity Reaction Status Date / Time No Known Allergies Allergy Verified 01/03/23 13:41 Review of Systems Review of Systems: All systems reviewed & are unremarkable except as noted in HPI and below PMFSH Past Medical History Medical History Arthritis Atrial fibrillation Status post cardiac ablation. Basal cell carcinoma of skin Benign prostatic hyperplasia Dyslipidemia Hypertension Paroxysmal atrial flutter Surgical History Surgical History History of bilateral cataract extraction History of cardiac radiofrequency ablation 2014 and 2015 History of cataract extraction with lens replacement (2005) History of colonoscopy with polypectomy History of inguinal hernia repair, bilateral (2014) Laparoscopic bilateral inguinal hernia repair w/ 3DMax mesh. History of tonsillectomy History of total right hip arthroplasty (11/30/22) History of umbilical hernia repair History of ventral hernia repair (2014) Open ventral hernia repair with Proceed ventral patch. Status post excision of lipoma Family History Family History Mother Hypertension Congestive heart failure Father Acute myocardial infarction Social History Social History Social History: Surrogate medical decision maker: Gladys Low, spouse. Code status: Full code. Smoking status: Never smoker Alcohol intake: current Drinks per week: 3 Substance use: never Living arrangements: with family Additional living arrangements comments: Lives with in [place]. 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 Works for [employer] thereafter. Spiritual care concerns: No Exam Narrative: GENERAL: Well-appearing, well-nourished, and in no acute distress. HEAD: Normocephalic, atraumatic. EYES: PERRLA and EOMI. ENT: Nares clear, no rhinorrhea or epistaxis. Mucous membranes moist. NECK: Supple. CHEST: Clear to auscultation. No respiratory distress. HEART: Regular rate and rhythm. No murmur heard. Normal peripheral pulses. ABDOMEN: Soft, +suprapubic/RLQ tenderness w/vo
[2023-01-03] MEDS: SODIUM CHLORIDE 0.9% IV 1,000 ML 999 ML IV CONT (14:21)
[2023-01-03 15:55] LABS: Basophils Percent Auto 0.4 % (0.2-1.2); Eosinophils Percent Auto 0.5 % (0-4.4); Hemoglobin 11.3 g/dL (14.0-18.0); Immature Granulocyte Absolute 0.03 K/mm3 (0.00-0.031); Immature Granulocyte Percent A 0.4 % (0-0.5); Lymphocytes Percent Auto 9.4 % (18.3-44.2); Mean Corpuscular HGB Conc 33.2 g/dl (32-36); Mean Corpuscular Hemoglobin 29.9 pg (26-34); Mean Corpuscular Volume 89.9 fl (80-100); Mean Platelet Volume 9.3 fl (7.4-10.4); Monocytes Absolute Auto 0.8 K/mm3 (0.1-0.6); Monocytes Percent Auto 10.5 % (2.6-8.5); Neutrophils Absolute Auto 5.9 K/mm3 (1.3-6.7); Neutrophils Percent Auto 78.8 % (45.5-73.1); Platelet Count Result 229 k/mm3 (150-375); Red Blood Count 3.78 M/mm3 (4.6-6.20); Red Cell Distribution Width 13.7 % (11.5-14.5); White Blood Count 7.5 K/mm3 (4.5-10.0)
[2023-01-03 16:06] LABS: Alanine Aminotransferase 17 U/L (6-50); Albumin Level 3.6 g/dL (3.5-5.1); Alkaline Phosphatase 90 U/L (38-126); Anion Gap 5 mmol/L (8-16); Aspartate Amino Transferase 23 U/L (17-59); Bilirubin,Total 0.5 mg/dL (0.2-1.3); Blood Urea Nitrogen 14 mg/dL (9-20); Calcium 8.3 mg/dL (8.4-10.2); Carbon Dioxide 26 mmol/L (22-30); Chloride 102 mmol/L (98-107); Estimated CRCL calculation 56 ml/min; Estimated Glomerular Filt Rate > 60; Glucose 114 mg/dL (65-110); Potassium 3.8 mmol/L (3.4-5.0); Sodium 133 mmol/L (137-145)
[2023-01-03 17:10] VITALS: BP 132/87; PULSE 79; O2SAT 99
[2023-01-03 17:11] LABS: Appearance Urine Clear (Clear); Bilirubin Urine Negative (Negative); Blood Urine Negative (Negative); Color Urine Yellow (Yellow); Glucose Urine UA Negative (Negative); Ketones Urine Negative (Negative); Leukocyte Esterase Ur Negative LEU/UL (Negative); Nitrate Urine Negative (Negative); Protein Urine Negative (Negative); Specific Grav Ur 1.008 (1.001-1.035); Urobilinogen Urine 0.2 mg/dL (<2.0)
[2023-01-03 17:14] LABS: Add Urine Microscopic? NO
[2023-01-03] MEDS: AMOXICILLIN/CLAVULANATE K 875-125 MG TAB 1 TABLET PO (17:59)
[2023-01-03 18:46] VITALS: BP 128/79; PULSE 75; RESP 15; O2SAT 99
== END 2023-01-03 18:47 | disposition home or self-care (01) ==
PROVIDERS: Emergency Provider Emergency Medicine; PCP Nurse Practitioner Family
DX: K57.32 Diverticulitis of large intestine without perforation or abscess without bleeding (principal); I48.91 Unspecified atrial fibrillation; I48.92 Unspecified atrial flutter; I10 Essential (primary) hypertension; E78.5 Hyperlipidemia, unspecified; N40.0 Benign prostatic hyperplasia without lower urinary tract symptoms; Z85.828 Personal history of other malignant neoplasm of skin; Z98.42 Cataract extraction status, left eye; Z98.41 Cataract extraction status, right eye; Z96.1 Presence of intraocular lens; Z96.641 Presence of right artificial hip joint
CPT/HCPCS: 36415; 74177; 80053; 81003; 85025; 96360; 99284; A9270; J7030; Q9967

== ENCOUNTER 2023-07-20 02:59 | Day surgery (SDC) | payer MEDICARE, BC, OTHER, SELFPAY ==
[2023-07-06 11:54] VITALS: BMI 25.1
--- NOTE | 2023-07-18 10:44 | SUR.PREOP ---
Patient called regarding upcoming procedure. Reviewed preop instructions, appointment times, and procedure prep.
[2023-07-20 06:57] VITALS: BP 124/79; PULSE 72; RESP 18; TEMP 36.3; O2SAT 100
[2023-07-20] MEDS: LACTATED RINGERS 1,000 ML 150 ML IV CONT (07:08)
[2023-07-20] MEDS: AMPICILLIN 2 GM/NS 100 ML 2 GM/100 ML BAG IVPB (07:12)
--- NOTE | 2023-07-20 07:18 | PM.HPGS ---
History of Present Illness History of Present Illness Consent: Risks, benefits, and alternatives have been discussed and questions answered. Patient agrees to proceed with procedure. Chief complaint: Hx colon polyps, hx of diverticulitis Narrative: Live Low is a 83 year old male Presents for colonoscopy after having had recent diverticulitis. Patient currently denies abdominal pain. His bowel habits have returned to normal. He has no bleeding. Patient also has a history of colon polyps. Patient presents today for follow-up examination. Family history is noncontributory. Review of Systems Review of Systems: Review of systems is noncontributory. [facility] Past Medical History Medical History Arthritis Atrial fibrillation Status post cardiac ablation. Basal cell carcinoma of skin Benign prostatic hyperplasia Dyslipidemia Hypertension Paroxysmal atrial flutter Surgical History Surgical History History of bilateral cataract extraction History of cardiac radiofrequency ablation 2014 and 2015 History of cataract extraction with lens replacement (2005) History of colonoscopy with polypectomy History of inguinal hernia repair, bilateral (2014) Laparoscopic bilateral inguinal hernia repair w/ 3DMax mesh. History of tonsillectomy History of total right hip arthroplasty (11/30/22) History of umbilical hernia repair History of ventral hernia repair (2014) Open ventral hernia repair with Proceed ventral patch. Status post excision of lipoma Family History Family History Mother Hypertension Congestive heart failure Father Acute myocardial infarction Social History Social History Social History: Surrogate medical decision maker: Gladys Low, spouse. Code status: Full code. Smoking status: Never smoker Alcohol intake: current Drinks per week: 3 Alcohol use details: RARELY Substance use: never Substance use type: does not use Living arrangements: with family Additional living arrangements comments: Lives with in [place]. 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 Works for [employer] thereafter. Spiritual care concerns: No Meds Home Medications and Allergies Home Medications Medication Instructions Recorded Confirmed Type finasteride 5 mg tablet 5 mg PO DAILY 01/07/21 07/20/23 History sildenafil 25 mg tablet (Viagra) 25 mg PO DAILY PRN Sexual Activity 01/07/21 07/20/23 History amlodipine 10 mg tablet 10 mg PO QAM 02/15/21 07/20/23 History coenzyme Q10 30 mg capsule (CoQ-10) 30 mg PO DAILY 02/15/21 07/20/23 History ramipril 10 mg capsule 10 mg PO HS 02/15/21 07/20/23 History simvastatin 10 mg tablet 10 mg PO EVERY OTHER DAY 02/15/21 07/20/23 History vit C 250 mg-vit E 90 mg-zinc 40 1 tablet PO BID 02/15/21 07/20/23 History mg-copper 1 [id number] capsule (PreserVision AREDS-2) Prevagen 1 tab-cap PO DAILY 09/15/22 07/20/23 History triamcinolone acetonide 0.1 % 1 ea topical BID PRN Rash 09/15/22 07/20/23 History topical ointment aspirin 81 mg tablet,delayed 81 mg PO DAILY 11/30/22 07/20/23 History release docusate sodium 100 mg capsule 100 mg PO DAILY PRN Constipation 05/17/23 07/20/23 History gabapentin 300 mg capsule 300 mg PO QHS 05/17/23 07/20/23 History polyethylene glycol 3350 17 gram 17 g PO QAM PRN CONTSTIPATION 07/06/23 07/20/23 History oral powder packet (Miralax) Allergies Allergy/AdvReac Type Severity Reaction Status Date / Time No Known Allergies Allergy Verified 07/20/23 06:50 Vital Signs Vital Signs - 24 hr 07/20/23 06:57 Temperature 97.3 F L Pulse Rate 72 Respiratory Rate 18 Blood Pressure
--- NOTE | 2023-07-20 07:48 | WPDANESEPPF ---
Anes - Initial Pre Proc Eval Procedure: Operation Date: 07/20/23 08:00 Proposed Procedures p Colonoscopy - Eben Nunez MD Date/Time: 07/20/23 07:48 Surgeon: Eben Nunez MD Pre Op Diagnosis: Hx colon polyps, hx of diverticulitis Patient Data Age: 83 Gender: M Height: 1.85 m Weight: 84.4 kg Last Vital Signs Temp 97.3 F L 07/20/23 06:57 Pulse 72 07/20/23 06:57 Resp 18 07/20/23 06:57 BP 124/79 07/20/23 06:57 Pulse Ox 100 07/20/23 06:57 O2 Del Method Room Air 07/20/23 06:57 Allergies Allergy/AdvReac Type Severity Reaction Status Date / Time No Known Allergies Allergy Verified 07/20/23 06:50 Home Medications Medication Instructions Recorded Confirmed Type finasteride 5 mg tablet 5 mg PO DAILY 01/07/21 07/20/23 History sildenafil 25 mg tablet (Viagra) 25 mg PO DAILY PRN Sexual Activity 01/07/21 07/20/23 History amlodipine 10 mg tablet 10 mg PO QAM 02/15/21 07/20/23 History coenzyme Q10 30 mg capsule (CoQ-10) 30 mg PO DAILY 02/15/21 07/20/23 History ramipril 10 mg capsule 10 mg PO HS 02/15/21 07/20/23 History simvastatin 10 mg tablet 10 mg PO EVERY OTHER DAY 02/15/21 07/20/23 History vit C 250 mg-vit E 90 mg-zinc 40 1 tablet PO BID 02/15/21 07/20/23 History mg-copper 1 [id number] capsule (PreserVision AREDS-2) Prevagen 1 tab-cap PO DAILY 09/15/22 07/20/23 History triamcinolone acetonide 0.1 % 1 ea topical BID PRN Rash 09/15/22 07/20/23 History topical ointment aspirin 81 mg tablet,delayed 81 mg PO DAILY 11/30/22 07/20/23 History release docusate sodium 100 mg capsule 100 mg PO DAILY PRN Constipation 05/17/23 07/20/23 History gabapentin 300 mg capsule 300 mg PO QHS 05/17/23 07/20/23 History polyethylene glycol 3350 17 gram 17 g PO QAM PRN CONTSTIPATION 07/06/23 07/20/23 History oral powder packet (Miralax) Patient hx anesthesia problems: none Family hx anesthesia problems: none Results Review: All pre-operative results and documents have been reviewed as part of the pre-operative evaluation. [facility] Past Medical History Medical History Arthritis Atrial fibrillation Status post cardiac ablation. Basal cell carcinoma of skin Benign prostatic hyperplasia Dyslipidemia Hypertension Paroxysmal atrial flutter Surgical History Surgical History History of bilateral cataract extraction History of cardiac radiofrequency ablation 2014 and 2015 History of cataract extraction with lens replacement (2005) History of colonoscopy with polypectomy History of inguinal hernia repair, bilateral (2014) Laparoscopic bilateral inguinal hernia repair w/ 3DMax mesh. History of tonsillectomy History of total right hip arthroplasty (11/30/22) History of umbilical hernia repair History of ventral hernia repair (2014) Open ventral hernia repair with Proceed ventral patch. Status post excision of lipoma Family History Family History Mother Hypertension Congestive heart failure Father Acute myocardial infarction Social History Social History Social History: Surrogate medical decision maker: Gladys Devante, spouse. Code status: Full code. Smoking status: Never smoker Alcohol intake: current Drinks per week: 3 Alcohol use details: RARELY Substance use: never Substance use type: does not use Living arrangements: with family Additional living arrangements comments: Lives with in [place]. 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 Spiritual care concerns: No Anes - Eval Final PreProcedure Day of Procedure 07/20/23 07:48 Patient weight: normal Heart: regular rate and rhyth
[2023-07-20 08:12] VITALS: BP 124/92; PULSE 67; RESP 23; O2SAT 99
[2023-07-20 08:22] VITALS: BP 110/62; PULSE 69; RESP 20; O2SAT 100
[2023-07-20 08:32] VITALS: BP 114/72; PULSE 74; RESP 19; O2SAT 99
== END 2023-07-20 08:44 | disposition home or self-care (01) ==
PROVIDERS: PCP Nurse Practitioner Family; Visit Provider Internal Medicine Gastroenterology
PROC: 0DJD8ZZ Inspection of Lower Intestinal Tract, Via Natural or Artificial Opening Endoscopic (ICD-10-PCS; CPT 45378; principal; 2023-07-20 08:00)
DX: Z09 Encounter for follow-up examination after completed treatment for conditions other than malignant neoplasm (principal); D12.2 Benign neoplasm of ascending colon; K64.8 Other hemorrhoids; K57.30 Diverticulosis of large intestine without perforation or abscess without bleeding; N40.0 Benign prostatic hyperplasia without lower urinary tract symptoms; E78.5 Hyperlipidemia, unspecified; I10 Essential (primary) hypertension; Z79.82 Long term (current) use of aspirin; Z86.79 Personal history of other diseases of the circulatory system; Z87.19 Personal history of other diseases of the digestive system; Z85.828 Personal history of other malignant neoplasm of skin; Z82.49 Family history of ischemic heart disease and other diseases of the circulatory system
CPT/HCPCS: 45385; 88305; J0290; J2704; J7120

== ENCOUNTER 2024-03-19 11:01 | Emergency (ER) | payer MEDICARE, BC, OTHER, SELFPAY ==
[2024-03-19 11:11] VITALS: BP 151/90; PULSE 72; RESP 16; TEMP 37.1; O2SAT 98
--- NOTE | 2024-03-19 11:23 | ED.DIZZY ---
HPI - Dizziness General Chief Complaint: Dizziness Stated Complaint: Dizziness Time Seen by Provider: 03/19/24 11:11 Source: patient, RN notes reviewed and old records reviewed Mode of arrival: ambulatory Limitations: no limitations History of Present Illness HPI Narrative: Patient presents with complaints of dizziness and lightheadedness that awakened him from sleep at approximately 2:00 a.m. this morning. He reports that he was having difficulty walking about his house without the assistance of the furniture. Reports that he did nearly fall. Patient does report a history of atrial fibrillation, states this is well controlled. He denies any chest pain or shortness of breath. He also voices concern that he believes he was bitten by a tick on his left arm earlier this weekend. There is a bruise at the site, but he is unsure whether not it was an actual tick that bit him. He denies any fever, chills, sweats. States that his symptoms are improved, describes now as feeling lightheaded Related Data Home Medications Medication Instructions Recorded Confirmed finasteride 5 mg tablet 5 mg PO DAILY 01/07/21 03/19/24 sildenafil 25 mg tablet (Viagra) 25 mg PO DAILY PRN Sexual Activity 01/07/21 03/19/24 amlodipine 10 mg tablet 10 mg PO QAM 02/15/21 03/19/24 coenzyme Q10 30 mg capsule (CoQ-10) 30 mg PO DAILY 02/15/21 03/19/24 ramipril 10 mg capsule 10 mg PO HS 02/15/21 03/19/24 simvastatin 10 mg tablet 10 mg PO EVERY OTHER DAY 02/15/21 03/19/24 vit C 250 mg-vit E 90 mg-zinc 40 1 tablet PO BID 02/15/21 03/19/24 mg-copper 1 [id number]-[id number] capsule (PreserVision AREDS-2) Prevagen 1 tab-cap PO DAILY 09/15/22 03/19/24 triamcinolone acetonide 0.1 % 1 ea topical BID PRN Rash 09/15/22 03/19/24 topical ointment aspirin 81 mg tablet,delayed 81 mg PO DAILY 11/30/22 03/19/24 release docusate sodium 100 mg capsule 100 mg PO DAILY PRN Constipation 05/17/23 03/19/24 gabapentin 300 mg capsule 300 mg PO QHS 05/17/23 03/19/24 polyethylene glycol 3350 17 gram 17 g PO QAM PRN CONTSTIPATION 07/06/23 03/19/24 oral powder packet (Miralax) Allergies Allergy/AdvReac Type Severity Reaction Status Date / Time No Known Allergies Allergy Verified 03/19/24 11:03 Review of Systems Review of Systems: All systems reviewed & are unremarkable except as noted in HPI and below Constitutional: Constitutional: Reports no additional constitutional complaints ENT: Reports system reviewed and no additional complaints, except as documented Cardiovascular: Cardiovascular: Reports no additional cardiovascular complaints Respiratory: Respiratory: Reports no additional respiratory complaints Gastrointestinal: Gastrointestinal: Reports no additional gastrointestinal complaints Neurologic: Reports as per HPI Hematologic/Lymphatic: Hematologic/Lymphatic: Reports easy bruising PMFSH Past Medical History Medical History Arthritis Atrial fibrillation Status post cardiac ablation. Basal cell carcinoma of skin Benign prostatic hyperplasia Dyslipidemia Hypertension Paroxysmal atrial flutter Surgical History Surgical History History of bilateral cataract extraction History of cardiac radiofrequency ablation 2014 and 2015 History of cataract extraction with lens replacement (2005) History of colonoscopy with polypectomy History of inguinal hernia repair, bilateral (2014) Laparoscopic bilateral inguinal hernia repair w/ 3DMax mesh. History of tonsillectomy History of total right hip arthroplasty (11/30/22) History of umbilical hernia repair History of ventral hernia repair (2014) Open ventral hernia repair with Proceed ventral patch. Status post excision of lipoma Family History Family History Mother Hypertension Congestive heart failure Father Acute myocardial infarction Soci
== END 2024-03-19 11:30 | disposition short-term general hospital (02) ==
PROVIDERS: Emergency Provider Nurse Practitioner Family; PCP Family Medicine
DX: R42 Dizziness and giddiness (principal); I48.91 Unspecified atrial fibrillation; M19.90 Unspecified osteoarthritis, unspecified site; N40.0 Benign prostatic hyperplasia without lower urinary tract symptoms; E78.5 Hyperlipidemia, unspecified; I10 Essential (primary) hypertension; Z96.1 Presence of intraocular lens; Z98.42 Cataract extraction status, left eye; Z98.41 Cataract extraction status, right eye; Z96.641 Presence of right artificial hip joint; Z79.82 Long term (current) use of aspirin
CPT/HCPCS: 99213; G0463

== ENCOUNTER 2024-03-19 11:55 | Emergency (ER) | payer MEDICARE, BC, OTHER, SELFPAY ==
[2024-03-19 12:01] VITALS: BP 156/83; PULSE 73; RESP 18; TEMP 36.6; O2SAT 100
--- NOTE | 2024-03-19 12:10 | ECG_ITS ---
Test Date: 2024-03-19 12:20:57 Measurements Intervals [place] Rate: 69 P: 66 FL: 157 QRS: 15 QRSD: 99 T: 58 QT: 414 QTc: 444 Interpretive Statements SINUS RHYTHM INCOMPLETE RIGHT BUNDLE BRANCH BLOCK BORDERLINE T WAVE ABNORMALITY- ANTEROLATERAL LEADS BORDERLINE ECG No previous ECG available for comparison Electronically Signed On 03-20-2024 17:13:17 CDT by Pola San D.O.
[2024-03-19 12:16] VITALS: BP 146/82; PULSE 78; RESP 16; TEMP 36.8; O2SAT 100
--- NOTE | 2024-03-19 13:06 | ED.GENADULT ---
HPI - General Adult General Chief complaint: Dizziness Stated complaint: dizziness, light headed Time Seen by Provider: 03/19/24 12:26 History of Present Illness HPI narrative: Patient is an 84-year-old male who presents ER with dizziness. Most profound last night. He felt like the room was jumping to left. It is worse when he turned tilt his head. No nausea or vomiting. Symptoms have resolved. No weakness or numbness to an arm or leg. No slurred speech. No sinus congestion. No tinnitus. Related Data Home Medications Medication Instructions Recorded Confirmed finasteride 5 mg tablet 5 mg PO DAILY 01/07/21 03/19/24 sildenafil 25 mg tablet (Viagra) 25 mg PO DAILY PRN Sexual Activity 01/07/21 03/19/24 amlodipine 10 mg tablet 10 mg PO QAM 02/15/21 03/19/24 coenzyme Q10 30 mg capsule (CoQ-10) 30 mg PO DAILY 02/15/21 03/19/24 ramipril 10 mg capsule 10 mg PO HS 02/15/21 03/19/24 simvastatin 10 mg tablet 10 mg PO EVERY OTHER DAY 02/15/21 03/19/24 vit C 250 mg-vit E 90 mg-zinc 40 1 tablet PO BID 02/15/21 03/19/24 mg-copper 1 [id number] capsule (PreserVision AREDS-2) Prevagen 1 tab-cap PO DAILY 09/15/22 03/19/24 triamcinolone acetonide 0.1 % 1 ea topical BID PRN Rash 09/15/22 03/19/24 topical ointment aspirin 81 mg tablet,delayed 81 mg PO DAILY 11/30/22 03/19/24 release docusate sodium 100 mg capsule 100 mg PO DAILY PRN Constipation 05/17/23 03/19/24 gabapentin 300 mg capsule 300 mg PO QHS 05/17/23 03/19/24 polyethylene glycol 3350 17 gram 17 g PO QAM PRN CONTSTIPATION 07/06/23 03/19/24 oral powder packet (Miralax) Allergies Allergy/AdvReac Type Severity Reaction Status Date / Time No Known Allergies Allergy Verified 03/19/24 11:03 [facility] Past Medical History Medical History Arthritis Atrial fibrillation Status post cardiac ablation. Basal cell carcinoma of skin Benign prostatic hyperplasia Dyslipidemia Hypertension Paroxysmal atrial flutter Surgical History Surgical History History of bilateral cataract extraction History of cardiac radiofrequency ablation 2014 and 2015 History of cataract extraction with lens replacement (2005) History of colonoscopy with polypectomy History of inguinal hernia repair, bilateral (2014) Laparoscopic bilateral inguinal hernia repair w/ 3DMax mesh. History of tonsillectomy History of total right hip arthroplasty (11/30/22) History of umbilical hernia repair History of ventral hernia repair (2014) Open ventral hernia repair with Proceed ventral patch. Status post excision of lipoma Family History Family History Mother Hypertension Congestive heart failure Father Acute myocardial infarction Social History Social History Social History: Surrogate medical decision maker: Gladys Low, spouse. Code status: Full code. Smoking status: Never smoker Alcohol intake: current Drinks per week: 3 Alcohol use details: RARELY Substance use: never Substance use type: does not use Living arrangements: with family Additional living arrangements comments: Lives with in [place]. 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 Spiritual care concerns: No Exam Narrative: GENERAL: Well-appearing, well-nourished, and in no acute distress. HEAD: Normocephalic, atraumatic. EYES: PERRL and EOMI. ENT: Mucous membranes moist. TM's normal. CHEST: Clear to auscultation. No respiratory distress. HEART: Regular rate and rhythm. Normal peripheral pulses. EXTREMITIES: Normal range of motion. No edema. NEURO: Alert and oriented x3. No facial droop. No slurred speech. Ambulates with steady gait. PSYCH: Kacey
[2024-03-19 13:28] VITALS: BP 146/76; PULSE 74; RESP 16; TEMP 36.8; O2SAT 98
== END 2024-03-19 13:30 | disposition home or self-care (01) ==
PROVIDERS: Emergency Provider Emergency Medicine; PCP Family Medicine
DX: H81.10 Benign paroxysmal vertigo, unspecified ear (principal); M19.90 Unspecified osteoarthritis, unspecified site; I10 Essential (primary) hypertension; E78.5 Hyperlipidemia, unspecified
CPT/HCPCS: 93005; 99283

== ENCOUNTER 2024-11-25 08:13 | Emergency (ER) | payer MEDICARE, BC, OTHER, SELFPAY ==
--- NOTE | ~2024-11-25 | CT_ITS ---
CT abdomen pelvis w con Ordering provider: Neeraj Lim III DO History: 84 years Male with . llq pain . Comparison: January 03, 2023 Technique: CT abdomen and pelvis with IV and without oral contrast. Automated exposure control and it erative reconstruction technique were employed. The dose-length product was 463.74 mGy-cm. 100 mL Omn ipaque 350 was given IV. Findings: VISUALIZED LOWER CHEST: Subsegmental atelectasis in the lung bases. UPPER ABDOMINAL ORGANS: Liver: Normal. Gallbladder: Cholelithiasis. Spleen: Normal. Stomach/duodenum: Normal. Pancreas: Normal. Adrenals: Normal. Kidneys: 1.4 cm cyst is seen in the right kidney midpole. Minimal fullness of the left ureter and renal pelvis. Possibility of left parapelvic cyst is not excl uded. PELVIC ORGANS: The bladder is normal. BOWEL AND MESENTERY: Colon: No evidence of diverticulitis. No evidence of appendicitis with no inflammatory changes in the right lower quadrant. Small Bowel: Normal. No obstruction. Peritoneum/mesentery: No free air or free fluid. No mesenteric lymphadenopathy. RETROPERITONEUM: Mild atheromatous disease of the abdominal aorta. No retroperitoneal lymphadenopat hy. MUSCULOSKELETAL: Superficial soft tissues: The superficial soft tissues are normal. Bones: Age appropriate degenerative changes of the spine. Right hip arthroplasty. IMPRESSION: 1. No evidence of appendicitis, diverticulitis or intestinal obstruction. 2. Cholelithiasis. 3. Minimal fullness of the left ureter and renal pelvis. Reviewed, dictated and finalized at location A.
[2024-11-25 08:22] VITALS: BP 150/79; PULSE 73; RESP 15; TEMP 36.6; O2SAT 100
--- OUTSIDE RECORDS SUMMARY | 2024-11-25 08:26 | XMS_ITS | Encounter Summary ---
Author Organization [facility] Address [address] [place] [address] Care Team Providers Care Bulk Pigment Reducer Name Role Phone Jenni Delarosa ACADEMIC HOSPITALIST-LIVE STUDY MANAGER Primary Care Provider + Encounter Details Date Type Department Care Team (Late st Contact Info) Description 03/10/2023 Lab Requisition [facility] - DermPath Lab [address] [place] [phone] Josué Porter MD [address] [place] [address] Social History Tobacco Use Types Packs/Day Years Used Date Smoking Tobacco: Never Smokeless Tobacco: Never Alcohol Use Standard Drinks/Week Comments Yes 0 (1 standard drink = 0.6 oz pur e alcohol) Sex and Gender Information Value Date Recorded Sex Assigned at Not on file Gender Identity Not on file Sexual Orientation Not on file documented as of this encounter Plan of Treatment Not on file documented as of this encounter Procedures Procedure Name Priority Date/Time Associated Diagnosis Comments DERMATOPATHOLOGY Routine 03/08/2023 12:0 0 AM CDT documented in this encounter Results * DERMATOPATHOLOGY (03/08/2023 12:00 AM CDT) Case Report Dermatopathology Report Case: [id number] Authorizing Provider: Josué Porter MD Collected: 03/08/2023 12:00 AM Ordering Location: [facility] Lab Received: 03/10/2023 07:02 AM Pathologist: Antonia Brandon MD Specimen: Skin, left pre-auric ant 12:53 PM CDT DERMATOPATHOLOGY LABORATORY Final Diagnosis Specimen A. SKIN, left pre-auric ant: BASAL CELL CARCINOMA, NODULAR TYPE (C44.219) PRESENT AT MARGIN 12:53 PM CDT DERMATOPATHOLOGY LABORATORY Clinical History R/O BCC Check margin 12:53 PM CDT DERMATOPATHOLOGY LABORATORY Gross Description Specimen A: Received is one formalin filled container labeled with the patient's name and designated left pre-auric ant. The specimen consists of a shave biopsy measuring 7x10x2 mm. Jar 0. 12:53 PM CDT DERMATOPATHOLOGY LABORATORY Microscopic Description Specimen A. SKIN, left pre-auric ant: Within the dermis there are aggregates of basaloid cells with a high nuclear to cytoplasmic ratio and peripheral palisading. This lesion is present at the margin of the specimen. 12:53 PM CDT DERMATOPATHOLOGY LABORATORY Disclaimer An external and internal positive and negative controls are appropriate for the histochemical, immunohistochemical and immunofluorescence stain(s) in this case (if any), except where stated explicitly. The performance characteristics of the stain(s) cited in this report were developed and its performance characteristic determined by the Dermatopathology Laboratory at [facility], directed by Dr. Eliud Dixon. These tests need not be, and therefore are not, approved by the [place] Food and Drug Administration. The tests are used for clinical purposes. Billing Codes Specimen Charges Stain Charges 72869 1 12:53 PM CDT DERMATOPATHOLOGY LABORATORY Embedded Images 12:53 PM CDT DERMATOPATHOLOGY LABORATORY Pathology/Cytolog y TISSUE SPECIMEN FROM SKIN / Unknown 03/08/2023 03/10/2023 7:02 AM CDT Josué Porter MD LAB - PATHOLOGY/CYTO LOGY ORDERABLES DERMATOPATHOLOGY LABORATORY [facility] - Department of Dermatology [address], [address] [phone] documented in this encounter Visit Diagnoses Not on filedocumented in this encounter Care Teams Bulk Pigment Reducer Relationship Specialty Start Date End Date Jenni Delarosa APRN-JENNIFER [address] [phone] PCP - General 06/13/17 documented as of this encounter
--- OUTSIDE RECORDS SUMMARY | 2024-11-25 08:26 | XMS_ITS | Clinical Summary ---
Author Organization [facility] [employer] [facility] Address [address] [place] [address] Care Team Providers Care Residential Living Assistant Name Role Phone Jenni Delarosa PURVI-VALUE ANALYSIS COORDINATOR Primary Care Provider + Source Comments [employer] [facility],non-owned Affiliates and Associated Physician Practices is amultiple site organization consisting of ambulatory clinics and hospital sitesin [place], [place], [place] and [place]. This disclosure is being madepursuant to the Care Everywhere program and may not contain all information available regarding this patient. Last updated 18.DXY Medications * Be aware that medications may not be up to date on this document. Alwaysverify current medications with the patient. Medication Sig Dispensed Refills Start Date End Date Status amLODIPine (NORVASC) 10 MG tablet Take 10 mg by mouth DAILY. 06/13/2017 Active Psyllium (FIBER) 0.52 G Take by mouth. 06/13/2017 Active finasteride (PROSCAR) 5 MG tablet Take 5 mg by mouth DAILY. 06/13/2017 Active simvastatin (ZOCOR) 10 MG tablet Take 10 mg by mouth. 06/13/2017 Active sildenafil (VIAGRA) 50 MG tablet Take 50 mg by mouth. 06/13/2017 Active aspirin (ASPIRIN) 325 MG tablet Take 325 mg by mouth DAILY. 06/13/2017 Active tamsulosin (FLOMAX) 0.4 MG capsule Take 0.4 mg by mouth. 06/13/2017 Active ramipril (ALTACE) 10 MG capsule Take 10 mg by mouth DAILY. 06/13/2017 Active ubiquinine/vitamin-e (COENZYME Q10) 200 MG capsule Take by mouth DAILY. 06/13/2017 Active Family History Medical History Relation Name Comments Cancer - Skin, Non Melanoma Sister Relation Name Status Comments Sister Social History Tobacco Use Types Packs/Day Years Used Date Smoking Tobacco: Never Smokeless Tobacco: Never Alcohol Use Standard Drinks/Week Comments Yes 0 (1 standard drink = 0.6 oz pur e alcohol) Sex and Gender Information Value Date Recorded Sex Assigned at Not on file Gender Identity Not on file Sexual Orientation Not on file Last Filed Vital Signs Vital Sign Reading Time Taken Comments Blood Pressure 143/90 07/18/2017 1:20 PM MERCERIZING RANGE FEEDER Pulse 84 07/18/2017 1:20 PM MERCERIZING RANGE FEEDER Temperature - - Respiratory Rate - - Oxygen Saturation 98% 07/18/2017 1:20 PM MERCERIZING RANGE FEEDER Inhaled Oxygen Concentration - - Weight 88.5 kg (195 lb) 07/18/2017 8:06 AM MERCERIZING RANGE FEEDER Height 188 cm (6' 2 ) 07/18/2017 8:06 AM MERCERIZING RANGE FEEDER Body Mass Index 25.04 07/18/2017 8:06 AM MERCERIZING RANGE FEEDER Plan of Treatment Health Maintenance Due Date Last Done Comments MEDICARE AWV 12 MONTHS 1939 DTAP/TDAP/TD VACCINES (1 - Tdap) 1958 PNEUMOCOCCAL VACCINE 50+ (1 of 1 - PCV) 1989 ZOSTER VACCINE (1 of 2) 1989 Respiratory Syncytial Virus (RSV) Vaccine Pt: or over 60 yrs (1 - 1-dose 75+ series) 2014 COVID-19 VACCINE ( - 2023-2 5 season) 2024 INFLUENZA VACCINE (#1) 2024 DEPRESSION SCREENING 09/04/2024 HEPATITIS B VACCINE Aged Out No longe r eligible based on patient's age to complete this topic HIB VACCINE Aged Out No longer eligi ble based on patient's age to complete this topic HPV VACCINE Aged Out No longer eligi ble based on patient's age to complete this topic MENINGOCOCCAL (Group B) VACC INE SHARED DECISION-MAKING Aged Out No longer eligibl e based on patient's age to complete this topic MENINGOCOCCAL GROUPS A/C/Y/W VACCINE Aged Out No longer eligible b ased on patient's age to complete this topic Care Teams Residential Living Assistant Relationship Specialty Start Date End Date Jenni Delarosa APRN-VALUE ANALYSIS COORDINATOR [address] [phone] PCP - General 06/13/17
--- OUTSIDE RECORDS SUMMARY | 2024-11-25 08:26 | XMS_ITS | Clinical Summary ---
Author Organization [facility] Address [address] [place] [address] Care Team Providers Care Incendiaries Supervisor Name Role Phone Mi Maldonado NP Primary Care Provider + Khai Tavarez MD Unavailable [phone] Allergies No known active allergies Medications coenzyme Q10 (CO Q-10) 200 mg capsule one po q day 0 3 Active vitamins A,C,E-zinc-vanesa er (PRESERVISION AREDS) 14,019-262-200 wacm-cf-xvts capsule one cap 2 times a day 0 0 5 Active sildenafil (VIAGRA) 50 mg tablet take 1 tablet by oral route every day as needed approximately 1 hour before sexual activity 0 0 4 Active simvastatin (ZOCOR) 10 mg tablet take 1 tablet by oral route every day in the evening 0 2 Active ramipril (ALTACE) 10 mg capsule Take 1 capsule (10 mg total) by mouth daily Active PSYLLIUM HUSK (METAMUCIL ORAL) Take by mouth daily as needed. Active amLODIPine (NORVASC) 10 mg tablet Take 1 tablet (10 mg total) by mouth daily 2 Active acetaminophen (TYLENOL) 500 mg tablet acetaminophen 500 mg tablet TAKE 2 TABLETS BY MOUTH EVERY 6 HOURS Active docusate sodium (COLACE) 100 mg capsule Take 1 capsule (100 mg total) by mouth 2 (two) times a day as needed Active fluorouraciL (EFUDEX) 5 % cream 3 Active gabapentin (NEURONTIN) 300 mg capsule TAKE 1 CAPSULE BY MOUTH EVERY DAY AT BEDTIME Active triamcinolone (KENALOG) 0.1 % ointment RUB IN WELL TWICE DAILY TO INVOLVED AREAS OF BODY UNTIL CLEAR Active metroNIDAZOLE (FLAGYL) 500 mg tablet Take 1 tablet (500 mg total) by mouth 3 (three) times a day Active ciprofloxacin (CIPRO) 500 mg tablet Take 1 tablet (500 mg total) by mouth 2 (two) times a day Active aspirin 81 mg enteric coated tablet Take 1 tablet (81 mg total) by mouth daily Active finasteride (PROSCAR) 5 mg tabletIndicatio ns:Benign prostatic hyperplasia with lower urinary tract symptoms, symptom details unspecified Take 1 tablet (5 mg total) by mouth daily 90 tablet 3 4 Active alfuzosin ER (UROXATRAL) 10 mg 24 hr tabletIndicatio ns:Benign prostatic hyperplasia with lower urinary tract symptoms, symptom details unspecified Take 1 tablet (10 mg total) by mouth daily 90 tablet 3 4 025 Active Active Problems Problem Noted Date Diagnosed Date Anticoagulation management encounter 07/03/2024 Dyspnea on exertion 01/27/2022 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 -he is not currently on any rate lowering medication, antiarrhythmics, or anticoagulation -we will continue to monitor and follow closely, and managed with new/recurrent arrhythmia expectantly. -EKG today demonstrated sinus rhythm (63), patient denies recurrence of his atrial arrhythmia -follow up in 12 months for 12 lead EKG and clinic visit. Assessment & Plan (03/08/2017 12:47 PM CDT): The patient is 2 years status post ablation for atrial fibrillation/flutter. He has not experienced recurrence. He is presently not on medications for his atrial arrhythmia. He is presently on aspirin. If he experiences recurrence, we will resume anticoagulation. We will continue to monitor and follow closely, and manage new / recurrent arrhythmia expectantly. The patient will follow-up with me in 12 months for an office visit and twelve- lead ECG. History of open heart surgery 11/02/2016 Overview (12/09/2016): S/P ablation of atrial flutter Paroxysmal atrial fibrillation 04/23/2014 Overview (12/09/2016): PAF Assessment & Plan (07/04/2023 8:38 AM CDT): -status post radiofrequency catheter ablation -has not had any reoccurrence Immunizations Immunization Administration Dates Next Due Influenza, Quadrivalent, Spl it, Intramuscular 06/29/2016 Influenza, Trivalent, High D ose, Split, Preservative Free, Intramuscular 06/27/2018,08/09/2017,07/22/2015,07/15 Pneumococcal Conjugate PCV 13 08/09/2017 Pneumococcal Polysaccharide PPV23 09/04/2007 ZOSTER LIVE 07/07/2017 Surgical History Surgery Date Site/Laterality Comments HERNIA REPAIR CARDIAC SURGERY MOHS SURGERY COLONOSCOPY Medical History Medical History Date Comments Hypertension Hypertension Hx Other Medical Atrial Flutter Cancer (HCC) Hyperlipidemia Atrial fibrillation (HCC) Skin cancer Prostate enlargement Monocytosis Dyspnea on exertion 01/27/2022 Family History Medical History Relation Name Comments Skin cancer Brother Heart attack Father Heart failure Mother Relation Name Status Comments Brother Alive 69 when diagnos ed Father (Age 77) Mother (Age 95) Social History Tobacco Use Types Packs/Day Years Used Date Smoking Tobacco: Never Smokeless Tobacco: Never Tobacco Cessation:Counseling Given: Not Answered Alcohol Use Standard Drinks/Week Comments Yes 3 (1 standard drink = 0.6 oz pur e alcohol) Sex and Gender Information Value Date Recorded Sex Assigned at Not on file 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 Gender Identity Not on file Sexual Orientation Not on file Occupation Industry Job Start Date Job End Date Retired Not on file Not on file Not on file Obstetrics History Last Filed Vital Signs Vital Sign Reading Time Taken Comments Blood Pressure 140/68 07/03/2024 10:43 AM CDT Pulse 67 07/03/2024 10:43 AM CDT Temperature 36.4 C (97.5 F) 01/10/2019 1:20 PM CDT Respiratory Rate 12 01/10/2019 1:20 PM CDT Oxygen Saturation 98% 02/22/2024 9:30 AM CDT Inhaled Oxygen Concentration - - Weight 89.8 kg (198 lb) 07/03/2024 10:43 AM CDT Height 182.9 cm (6') 07/03/2024 10:43 AM CDT Body Mass Index 26.85 07/03/2024 10:43 AM CDT Plan of Treatment Health Maintenance Due Date Last Done Comments Depression Screening 1940 Fall Risk Assessment 1940 Hepatitis B Screening 1958 Well Visit 65+ 2004 Zoster Vaccine (2 of 3) 09/01/2017 07/07/2017 Influenza Vaccine (#1) 2024 2, 05/17/2020, 05/13/2020, Additional history exists DTaP/Tdap/Td Vaccine (2 - Td or Tdap) 09/06/2032 09/06/2022 Pneumococcal vaccine 65+ Completed 08/09/2017, 09/2007 Insurance MEDICARE [facility] FOR LIFE [facility] ACCESS MEDICARE FOR LIFE [facility] MEDICARE [facility] LIFE [facility] Care Teams Incendiaries Supervisor Relationship Specialty Start Date End Date Mi Maldonado NP PCP - General Nurse Practitioner 02/21/23 Khai Tavarez MD [address] [address] Consulting Physician Cardiology 07/03/24
--- OUTSIDE RECORDS SUMMARY | 2024-11-25 08:26 | XMS_ITS | Clinical Summary ---
Author Organization [facility] Address [address] [place] [address] Phone Care Team Providers Care Sports Marketing Specialist Name Role Phone Jenni Delarosa NP Primary Care Provider [phone] Medications Medication Sig Dispensed Refills Start Date End Date Status simvastatin (ZOCOR) 10 MG tablet 09/17/2014 Active sildenafil (VIAGRA) 50 MG tablet 1 tablet (50 mg) orally daily as needed 0 03/29/2017 Active ramipril (ALTACE) 10 MG capsule 1 dailky 0 09/25/2017 Active amLODIPine (NORVASC) 10 MG tablet 1 tablet (10 mg) orally daily 0 03/29/2017 Active Multiple Vitamins-Minerals (PRESERVISION AREDS) capsule 03/20/2013 Active aspirin 325 MG tablet 1 daily 09/28/2015 Act vito finasteride (PROSCAR) 5 MG tablet 1 tablet (5 mg) orally daily 0 03/29/2017 Active Coenzyme Q10 (COQ-10) 200 MG capsule 09/17/2014 Active Psyllium (FIBER) 0.52 g capsule Take by mouth 06/13/2017 Active alfuzosin (UROXATRAL) 10 MG 24 hr tablet Take 10 mg by mouth 1 (one) time each day Active sildenafil (VIAGRA) 50 MG tablet Take 50 mg by mouth 1 (one) time each day if needed Active Active Problems Problem Noted Date Diagnosed Date Chronic obstructive pulmonary disease 11/26/2018 Benign prostatic hyperplasia 03/27/2017 H/O cardiac surgery 11/02/2016 Overview (03/15/2019): S/P ablation of atrial flutter Hyperlipidemia 09/17/2014 Paroxysmal atrial fibrillation 04/23/2014 Overview (03/15/2019): PAF Chronic kidney disease, stage 3 (moderate) 02/28 Essential hypertension 02/29/2012 Stiffness of joint 02/29/2012 Immunizations Name Administration Dates Next Due Influenza (IM) Preservative Free 05/29/2013 Influenza Split High Dose Pr eservative Free IM 06/27/2018,08/09/2017,07/22/2015,07/15 Influenza, Injectable, Quadrivalent 07/22/2019,1 Pneumococcal Conjugate 13-Valent 08/09/2017 Pneumococcal Polysaccharide 09/04/2007 Tdap 06/15/2011 Zoster 07/07/2017 Family History Medical History Relation Comments Coronary arteriosclerosis Father Coronary arteriosclerosis Mother Anemia Neg Hx Cerebrovascular accident Neg Hx Diabetes mellitus Neg Hx Dyslipidemia Neg Hx Heart disease Neg Hx Hypertensive disorder Neg Hx Kidney disease Neg Hx Kidney stone Neg Hx Malignant neoplastic disease Neg Hx Relation Status Comments Father Mother Social History Tobacco Use Types Packs/Day Years Used Date Smoking Tobacco: Never Smokeless Tobacco: Never Alcohol Use Standard Drinks/Week Comments Yes 0 (1 standard drink = 0.6 oz pur e alcohol) occasionally Sex and Gender Information Value Date Recorded Sex Assigned at Not on file Gender Identity Not on file Sexual Orientation Not on file Last Filed Vital Signs Vital Sign Reading Time Taken Comments Blood Pressure 132/70 10/10/2019 9:42 AM CARPENTERS Pulse 72 10/10/2019 9:42 AM CARPENTERS Temperature 36.6 C (97.8 F) 10/10/2019 9:42 AM CARPENTERS Respiratory Rate - - Oxygen Saturation - - Inhaled Oxygen Concentration - - Weight 92.1 kg (203 lb) 10/10/2019 9:42 AM CARPENTERS Height 185.4 cm (6' 1 ) 10/10/2019 9:42 AM CARPENTERS Body Mass Index 26.78 10/10/2019 9:42 AM CARPENTERS Plan of Treatment Health Maintenance Due Date Last Done Comments Influenza Vaccine (#1) 2024 05/29/2013 Pneumococcal PPSV23/PCV13 65 + Years / Low and Medium Risk Completed 08/09/2017, 09/04/2007 Care Teams Sports Marketing Specialist Relationship Specialty Start Date End Date Jenni Delarosa NP [facility] [address] PCP - General Internal Medicine 03/20/19
--- OUTSIDE RECORDS SUMMARY | 2024-11-25 08:26 | XMS_ITS | Encounter Summary ---
Author Organization [facility] Address [address] [facility] [address] Care Team Providers Care Job Developer For Deaf Adults Name Role Phone Jenni Delarosa CNC LASER OPERATOR-FREIGHT FLOW SALES LEADER Primary Care Provider + Encounter Details Date Type Department Care Team (Late st Contact Info) Description 05/06/2020 Lab Requisition [facility] [address] [place] [id number] Josué Porter MD [address] [place], [place] [id number] Social History Tobacco Use Types Packs/Day Years [...] Procedure Name Priority Date/Time Associated Diagnosis Comments DERMPATH SLIDE CONSULT Routine 05/06/2020 12:00 AM CDT documented in this encounter Results * DERMPATH SLIDE CONSULT (05/06/2020 12:00 AM CDT) Case Report Dermatopathology Report Case: [id number] Authorizing Provider: Josué Porter MD Collected: 05/06/2020 12:00 AM Ordering Location: [facility] Received: 05/06/2020 09:43 AM Pathologist: Antonia Brandon MD Specimen: Slide(s), Left chest, [id number]# [id number] 0 3:14 PM CDT DERMATOPATHOLOGY LABORATORY Final Diagnosis Specimen A. 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 Josué Porter, a consult will be performed on 1 (H&E) slide(s) labeled [id number]. Bx Date: 04/28/2020 R/O BCC. All slides returned. Any additional sections, special stains or immunohistochemical stains performed by our laboratory will be kept here on file. 0 3:14 PM T DERMATOPATHOLOGY LABORATORY Microscopic Description Specimen A. Slide(s), Left chest, OSC# [id number]: Sections show an unremarkable epidermis from a superficial nodular infiltrate by an underlying Grenz zone. The infiltrate is composed of lymphocytoid cells with scattered admixed mononuclear phagocytes and eosinophils. COMMENT: If this is a solitary lesion, then this histology is most consistent with a reactive lymphoid process such as cutaneous lymphoid hyperplasia (pseudolymphoma or lymphocytoma cutis). However, if this is part of a more diffuse process, a malignant process is clinically suspected or the lesion persists or recurs then consideration should be given to a rebiopsy including fresh tissue to submit for gene rearrangement studies and/or flow cytometry. Fresh tissue should be transported in RPMI media and should be processed within 8 hours of collection in order to maximize lymphocyte viability. For assistance with submitting fresh tissue contact the laboratory. The older literature suggests that patients with cutaneous lymphoid hyperplasia may be at increased risk for hematopoietic malignancies. Clinical correlation is recommended. 0 3:14 PM T DERMATOPATHOLOGY LABORATORY Disclaimer An external and internal positive and negative controls are appropriate for the histochemical, immunohistochemical and immunofluorescence stain(s) in this case (if any), except where stated explicitly. The performance characteristics of the stain(s) cited in this report were developed and its performance characteristic determined by the Dermatopathology Laboratory at [facility], directed by Dr. Eliud Dixon. These tests need not be, and therefore are not, approved by the [place] Food and Drug Administration. The tests are used for clinical purposes. Billing Codes Specimen Charges Stain Charges 06519 1 0 3:14 PM CDT DERMATOPATHOLOGY LABORATORY Embedded Images 0 3:14 PM CDT DERMATOPATHOLOGY LABORATORY Pathology/Cytolog y SLIDE / Unknown 05/06/2020 05/06/2020 9:43 AM CDT Josué Porter MD LAB - PATHOLOGY/CYTO LOGY ORDERABLES DERMATOPATHOLOGY LABORATORY [facility] - Department of Dermatology [address], [address] [phone] documented in this encounter Visit Diagnoses Not on filedocumented in this encounter Care Teams Job Developer For Deaf Adults Relationship Specialty Start Date End Date Jenni Delarosa APRN-JENNIFER [address] [phone] PCP - General 06/13/17 documented as of this encounter
--- OUTSIDE RECORDS SUMMARY | 2024-11-25 08:26 | XMS_ITS | Referral Summary ---
Author Organization [facility] Address [address] [place] [address] Care Team Providers Care Filter Filler Name Role Phone Mi Maldonado SPRAY MAKER Primary Care Provider + Khai Tavarez MD Unavailable [phone] Allergies No known active allergies Medications coenzyme Q10 (CO Q-10) 200 mg capsule one po q day 0 3 Active vitamins A,C,E-zinc-vanesa er (PRESERVISION AREDS) 14,[id number] gyfp-as-alvn capsule one cap 2 times a day [...] Pneumococcal Polysaccharide PPV23 09/04/2007 ZOSTER LIVE 07/07/2017 Social History Tobacco Use Types Packs/Day Years Used Date Smoking Tobacco: Never Smokeless Tobacco: Never Tobacco Cessation:Counseling Given: Not Answered Alcohol Use Standard Drinks/Week Comments Yes 3 (1 standard drink = 0.6 oz pur e alcohol) Sex and Gender Information Value Date Recorded Sex Assigned at Not on file 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 Gender Identity Not on file Sexual Orientation Not on file Occupation Industry Job Start Date Job End Date Retired Not on file Not on file Not on file Last Filed Vital Signs [...] 07/03/2024 10:43 AM CDT Plan of Treatment Not on file Insurance MEDICARE [facility] Couple [facility] MEDICARE [employer] [facility] MEDICARE FOR LIFE [facility] ACCESS Care Teams Filter Filler Relationship Specialty Start Date End Date Mi Maldonado NP PCP - General Nurse Practitioner 02/21/23 Khai Tavarez MD [address] [address] Consulting Physician Cardiology 07/03/24
--- OUTSIDE RECORDS SUMMARY | 2024-11-25 08:26 | XMS_ITS | Continuity of Care Document ---
Author Organization [facility] Address [address] [place] [address] Phone Care Team Providers Care Vice President Payment Name Role Phone Cullen Kimball Unavailable Unavailable Procedures Procedure Date Post-op Follow-up Visit Post-op Follow-up Visit Remove Cataract, Insert Lens,Comanaged J Office/outpatient Visit, Est IOLMaster-Professional Post-op Follow-up Visit Post-op Follow-up Visit Remove Cataract, Insert Lens,Comanaged J Eye Exam Established Pt Visual Functional Status Assessed IOLMaster Advance Directives Directive Yes / No Effective Date File Name No Information Encounters Encounter Description Practice Location Reason(s) For Visit Diagnoses Date Provider Providers Copied on Encounter [facility], [address] [place] [address] [address], [place], [place], [id number], tel:[phone] [facility] No Information [address]. [address] , [address], [place], [address], [place]. tel:[phone] Referring Provider: Ladarius Johnson OD, [address] [place], [address]. tel:[phone] [facility], [address] [place] [address] [address], [place], [place], [id number], tel:[phone] [facility] No Information 3-[address] Doisy Edward. [address] , [address], [place], [place], [facility], . tel:[phone] Referring Provider: Ladarius Johnson OD, [address] [place] [address], [facility]. tel:[phone] [facility], [address] [place] [address] [address], [place], [place], [id number], tel:[phone] [facility] No Information [address]. [address] , [address], [place], [place], [facility], [place]. tel:[phone] Referring Provider: Ladarius Johnson OD, [address] [place] [address], [facility]. tel:[phone] Office/outpat ient Visit, [facility] [place], [address] [place] [address] [address], [place], [place], [id number], tel:[phone] [facility] No Information [address]. [address] , [address], [place], [place], [facility], [place]. tel:[phone] Referring Provider: Ladarius Johnson OD, [address] [place] [address], [facility]. tel:[phone] [facility], [address] [place] [address] [address], [place], [place], [id number], [place] tel:[phone] [facility] No Information [address] Edward. [address] [facility] , [address], [place], [place], [facility], . tel:[phone] Referring Provider: Ladarius Johnson OD, [address] [place] [address], [facility]. tel:[phone] [facility], [address] [place] [address] [address], [place], [id number], [place] tel:[phone] [facility] No Information 8-[address] Edward. [address] [facility] [place] , [address], [place], [address], . tel:[phone] Referring Provider: Meghan Johnson OD, [address] [place] [address], [address]. tel:[phone] [facility], [address] [place] [address], [place], [id number], tel:[phone] [facility] No Information [address] Edward. [address] [facility] , [address], [place], [address], . tel:[phone] Referring Provider: Ladarius Johnson OD, [address] [place] [address], [address]. tel:[phone] [facility], [address] [place], [place] [address], [place], [id number], tel:[phone] [facility] No Information [address] [facility] Edward. [address] [facility] , [address], [place], [address], . tel:[phone] Referring Provider: Ladarius Johnson OD, [address] [place] [address], [address]. tel:[phone] Family History Family Member Type Diagnosis Age At Onset No Information Payers Payer name Insurance type Covered democrat ID Authoriza tion(s) No Information Social History Type Description Quantity Date Captured Comments Sex Male Smoking Status No Information Chief Complaint And Reason For Visit No Information Reason For Referral Reason For Referral No Information History Of Present Illness Encounter Date Complaint History Of Prese nt Illness No Information Functional Status Date Functional Assessmen t No Information Instructions Date Instruction Additional Infor mation No Information Assessments Type Assessment Date No Information Patient Care Teams Name Effective Dates (start - stop) Status Members No Information
--- OUTSIDE RECORDS SUMMARY | 2024-11-25 08:27 | XMS_ITS | Data Portability ---
Author Organization [facility] [employer], Main Office Address [address] [place] [address] Care Team Providers Care Chemical Operations Specialist Name Role Phone LAN MARKS Primary Care Provider [phone] LAN MARKS Referring Provider [phone] Assessment Encounter Date Assessment Date Assessment LastModified by Organization Details LastModified Time 06/26/2024 06/26/2024 D/w pt about his findings and further plan of care. Will do labs and x-ray. Meds as directed. Good liquid and fiber intake explained. Educated pt about alarming symptoms to monitor at home and call us back or get checked in ED. Pt verbalized understanding it. F/u as directed. [email or web address] Not available 06/26/2024 16:48:44 07/03/2024 07/03/2024 D/w pt about his findings, recent testing and further plan of care. Advised to refer for PT; but pt declined. Advised pt to talk with his GI about his BM concerns. Meds as directed. Good liquid and fiber intake explained. Educated pt about alarming symptoms to monitor at home and call us back or get checked in ED. Pt verbalized understanding it. F/u as directed. [email or web address] Not available 07/03/2024 16:33:33 08/07/2024 08/07/2024 84 yo M with - SUBCLINICAL HYPOTHYROIDISM, new - HTN - HLD - NEUROPATHY - CHRONIC CONSTIPATION - BPH - B/L HEARING LOSS, chronic - H/O A FIB X-ray abdo: 06/27/24. X-ray L-spine: 06/27/24. Annual labs: 04/17/24. D/w pt about his findings, recent labs & imagines and further plan of care. MAWV questionnaire reviewed with pt. Answered all questions and concerns for the pt. Fall risk precautions explained. Pt declined for Levothyroxine at this time. Advised pt to f/u with his Cardio about anticoagulation recommendation for him. All meds verified with pt. Meds as directed. Diet and exercise explained in detail. BP diary education given. Fall risk precautions explained. Cont f/u with Cardio at [facility] as per schedule. Cont f/u with Uro at [facility] as per schedule. Cont f/u with Ophtho at [place] as per schedule. HM: Colonoscopy - 07/27, polyps ++. Cont f/u with GI as per schedule. Flu - 07/28. Tdap - 09/26. Pneumo - Pt had 2 doses. Shingrix, RSV - Pt had it. F/u in 2-3 months. Lipids, TSH before next visit. Annual labs in 04/28. [email or web address] Not available 08/07/2024 09:55:19 11/05/2024 11/05/2024 84 yo M with - SUBCLINICAL HYPOTHYROIDISM, stable - HTN - HLD - NEUROPATHY - CHRONIC CONSTIPATION - BPH - B/L HEARING LOSS, chronic - H/O A FIB X-ray abdo: 06/27/24. X-ray L-spine: 06/27/24. Annual labs: 04/17/24. D/w pt about his findings, recent labs & imagines and further plan of care. Pt declined for Levothyroxine at this time. Advised pt to f/u with his Cardio about anticoagulation recommendation for him. All meds verified with pt. Meds as directed. Diet and exercise explained in detail. BP diary education given. Fall risk precautions explained. Cont f/u with Cardio at [facility] as per schedule. Cont f/u with Uro at [facility] as per schedule. Cont f/u with Ophtho at [place] as per schedule. HM: Colonoscopy - 07/27, polyps ++. Cont f/u with GI as per schedule. Flu - 07/28. Tdap - 09/26. Pneumo - Pt had 2 doses. Shingrix, RSV - Pt had it. F/u in 3-4 months. TSH before next visit. Annual labs in 04/28. [email or web address] Not available 11/05/2024 10:15:20 Plan of Treatment Reminders Order Date Submit Date Provider Last Modified By Organization Details Last Modified Time Details Appointments Establish ed Patient 15 2024 10:15A M Michael Wolf DPM Not available Not available Not available Any 15 2024 09:00A M Lan Marks MD Not available Not available Not available Lab TSH, serum or plasma 2024 025 [email or web address] [facility] (Lab), [address] [place], [address], 11/05/2024 10:07:22 TSH, serum or plasma 2023 024 [email or web address] [facility] (Lab), [address] [place], [address], 10/03/2024 11:51:10 lipid panel, serum 2023 024 [email or web address] [facility] (Lab), [address] [place], [address], 10/30/2024 09:34:49 urinalysi s complete, reflex culture 2023 024 [email or web address] [facility] (Lab), [address] [place], [address], 07/04/2024 11:37:14 CBC w/ auto diff 2023 024 [facility] (Lab), [address] [place], [address], 06/27/2024 14:44:45 CMP, serum or plasma 2023 024 [facility] (Lab), [address] [place], [address], 06/27/2024 15:12:50 ESR (erythroc yte sedimenta tion rate), blood 2023 024 [facility] (Lab), [address] [place], [address], 06/27/2024 15:31:05 lipase, serum or plasma 2023 024 [facility] ([facility]), [address] [place], [address], 06/27/2024 15:12:53 Referral None recorded. Procedures None recorded. Surgeries None recorded. Imaging XR, lumbosacr al spine, 2 or 3 view 2023 024 [email or web address] Not available 06/27/2024 15:22:24 XR, abdomen, 2 view 2023 024 [email or web address] Not available 07/03/2024 08:50:50 Medication Orders amlodipin e 10 mg tablet [facility]24 [facility]25 [id number], [address] [place] [address], [id number], 11/05/2024 10:07:30 ramipril 10 mg capsule 2024 025 [facility], [address] [place] [address], [id number], 11/05/2024 10:07:29 simvastat in 10 mg tablet 2024 025 [facility], [address] [place] [address], [id number], 11/05/2024 10:07:29 gabapenti n 300 mg capsule 2024 025 [facility], [address] [place] [address], [id number], 11/05/2024 10:07:30 amlodipin e 10 mg tablet 2023 024 [facility], [address] [place] [address], [id number], 08/07/2024 09:50:38 ramipril 10 mg capsule 2023 [facility] #27788, [address], [place], [place], [id number], 08/07/2024 09:50:28 simvastat in 10 mg tablet 2023 [facility] #50691, [address], [place], [place], [id number], 08/07/2024 09:50:28 gabapenti n 300 mg capsule 2023 [facility] #85031, [address], [place], [place], [id number], 08/07/2024 09:50:27 diclofena c sodium 75 mg tablet,de layed release 2023 [facility] #63244, [address], [place], [place], [id number], 06/26/2024 16:22:22 tizanidin e 2 mg tablet 2023 [email or web address] [facility] #24736, [address] [facility], [place], [place], [id number], 07/03/2024 16:05:08 ketorolac 30 mg/mL (1 mL) injection solution 2023 [email or web address] Not available 08/07/2024 09:46:15 ciproflox acin 500 mg tablet 2023 [email or web address] [facility] #74932, [address], [place], [place], [id number], 07/03/2024 16:20:44 metronida zole 500 mg tablet 2023 [facility] #19506, [address], [place], [place], [id number], 07/03/2024 16:20:53 Patient TargetsNo targets recorded. Patient Instructions Encounter Date Encounter Id Patient Instructions Last Modified By Organization Details Last Modified Time 08/07/2024 [id number] dementia rating scale-2* TOMMY Not available 08/07/2024 11:51:23 alcohol misuse* TOMMY Not available 08/07/2024 11:51:12 depression screening* TOMMY Not available 08/07/2024 11:51:07 multi-dimensiona l health assessment questionnaire* TOMMY Not available 08/07/2024 11:51:17 Personalized Hea lt Plan and Screening Recommendations Advance Directives - Do you have one? No Advance Directives - Do we have your advance directive on file in your health record? Primary Prevention/Interven tion (prevents or decreases the chance of common diseases from occurring) Smoking Risk: Non Smoker Alcohol Misuse Screening: Negative Weight: Appropriate Overwei ght continue your current weight loss efforts try to lose 5% of your body weight try to lose 10% of your body weight Physical activity: Need more exercise/physical activity minimum of 10-20 minutes of activity that causes mild breathlessness/day minimum of 20-30 minutes activity that causes mild breathlessness/day Nutrition: Good Average Fall Risk (screened today): Low Pneumococcal: Ordered Recommended today Recommended today, but you have declined No further needed Influenza: Your next one in the fall of this year Chronic Disease Risks Stroke: Low Risk Intermediate Risk I have no recommendations Act lorne diagnosis, Continue current treatment plan Heart Attack: Low risk Intermediate Risk I have no recommendations Act lorne diagnosis, Continue current treatment plan Clogging of the Arteries: Low risk Intermediate Risk I have no recommendations Act lorne diagnosis, Continue current treatment plan Diabetes: Low Risk I have no recommendations Secondary Prevention/Interven tion (detects treatable diseases before they may cause symptoms, disability, or ) Prostate Cancer Screening: No PSA screening necessary No digital rectal exam screening necessary Colon Cancer Screening: Colonoscopy No screening necessary Date Screening Last Performed: 07/2023 Eye Disease Screening: No Eye exam necessary Dementia Risk: Low I have no recommendations Depression Screening: Negative [email or web address] Not available 08/07/2024 09:13:05 Reason for Referral None Reported. Results Created Date Observation Date Name Description Value Unit Range Abnormal Flag Note LastModifiedBy Organization Detail LastModifiedTime 06/27/2006/27/2024 CBC/C OMPLE TE BLD COUNT W/DIF F white blood cells 5.3 x10'3 /uL 4.2-10 .8 Not Available [facility] (Lab) [address] [place], [address], 06/27/2024 14:44:45 06/27/2006/27/2024 CBC/C OMPLE TE BLD COUNT W/DIF F red blood cells 4.69 x10'6 /uL 4.10-5 .80 Not Available [facility] (Lab) [address] [place], [address], 06/27/2024 14:44:45 06/27/2006/27/2024 CBC/C OMPLE TE BLD COUNT W/DIF F hemoglobin 14.8 g/dL 13.2-1 7.0 Not Available [facility] (Lab) [address] [place], [address], 06/27/2024 14:44:45 06/27/2006/27/2024 CBC/C OMPLE TE BLD COUNT W/DIF F hematocrit 43.4 % 39.3-5 0.0 Not Available [facility] (Lab) [address] [place], [address], 06/27/2024 14:44:45 06/27/2006/27/2024 CBC/C OMPLE TE BLD COUNT W/DIF F mean red cell volume 92.5 fL 80.0-9 7.0 Not Available [facility] (Lab) [address] [place], [address], 06/27/2024 14:44:45 06/27/2006/27/2024 CBC/C OMPLE TE BLD COUNT W/DIF F mean red cell hemoglobin 31.6 pg 27.0-3 3.0 Not Available [facility] (Lab) [address] [place], [address], 06/27/2024 14:44:45 06/27/2006/27/2024 CBC/C OMPLE TE BLD COUNT W/DIF F mean RBC HGB concentratio n 34.1 g/dL 31.0-3 6.0 Not Available [facility] (Lab) [address] [place], [address], 06/27/2024 14:44:45 06/27/2006/27/2024 CBC/C OMPLE TE BLD COUNT W/DIF F red cell distribution width 13.2 % 11.8-1 5.5 Not Available [facility] (Lab) [address] [place], [address], 06/27/2024 14:44:45 06/27/2006/27/2024 CBC/C OMPLE TE BLD COUNT W/DIF F platelets 248 x10'3 /uL 150-40 0 Not Available [facility] (Lab) [address] [place], [address], 06/27/2024 14:44:45 06/27/2006/27/2024 CBC/C OMPLE TE BLD COUNT W/DIF F mean platelet volume 10.6 fL 9.0-12 .4 Not Available [facility] (Lab) [address] [place], [address], 06/27/2024 14:44:45 06/27/2006/27/2024 CBC/C OMPLE TE BLD COUNT W/DIF F neutrophils 69.1 % 39.0-7 2.0 Not Available [facility] (Lab) [address] [place], [address], 06/27/2024 14:44:45 06/27/2006/27/2024 CBC/C OMPLE TE BLD COUNT W/DIF F lymphocytes 15.0 % 16.0-4 7.0 low Not Available [facility] (Lab) [address] [place], [address], 06/27/2024 14:44:45 06/27/2006/27/2024 CBC/C OMPLE TE BLD COUNT W/DIF F monocytes 13.3 % 5.0-12 .0 high Not Available [facility] (Lab) [address] [place], [address], 06/27/2024 14:44:45 06/27/2006/27/2024 CBC/C OMPLE TE BLD COUNT W/DIF F eosinophils 1.3 % 1.0-7. 0 Not Available [facility] (Lab) [address] [place], [address], 06/27/2024 14:44:45 06/27/2006/27/2024 CBC/C OMPLE TE BLD COUNT W/DIF F basophils 0.9 % 0.0-2. 0 Not Available [facility] (Lab) [address] [place], [address], 06/27/2024 14:44:45 06/27/2006/27/2024 CBC/C OMPLE TE BLD COUNT W/DIF F immature granulocytes 0.4 % 0.00-0 .50 Not Available [facility] (Lab) [address] [place], [address], 06/27/2024 14:44:45 06/27/2006/27/2024 CBC/C OMPLE TE BLD COUNT W/DIF F neutrophils, absolute count 3.67 x10'3 /uL 1.5-8. 0 Not Available [facility] (Lab) [address] [place], [address], 06/27/2024 14:44:45 06/27/2006/27/2024 CBC/C OMPLE TE BLD COUNT W/DIF F lymphocytes, absolute count 0.80 x10'3 /uL 1.07-3 .43 low Not Available [facility] (Lab) [address] [place], [address], 06/27/2024 14:44:45 06/27/2006/27/2024 CBC/C OMPLE TE BLD COUNT W/DIF F monocytes, absolute count 0.71 x10'3 /uL 0.29-0 .99 Not Available [facility] (Lab) [address] [place], [address], 06/27/2024 14:44:45 06/27/2006/27/2024 CBC/C OMPLE TE BLD COUNT W/DIF F eosinophils, absolute count 0.07 x10'3 /uL 0.02-0 .53 Not Available [facility] (Lab) [address] [place], [address], 06/27/2024 14:44:45 06/27/2006/27/2024 CBC/C OMPLE TE BLD COUNT W/DIF F basophils, absolute count 0.05 x10'3 /uL 0.01-0 .08 Not Available [facility] (Lab) [address] [place], [address], 06/27/2024 14:44:45 06/27/2006/27/2024 CBC/C OMPLE TE BLD COUNT W/DIF F immature granulocytes ,absolute 0.02 x10'3 /uL 0.00-0 .05 Not Available [facility] (Lab) [address] [place], [address], 06/27/2024 14:44:45 06/27/2006/27/2024 CBC/C OMPLE TE BLD COUNT W/DIF F nucleated red blood cells 0.0 % -0 Not Available [facility] (Lab) [address] [place], [address], 06/27/2024 14:44:45 06/27/2006/27/2024 CBC/C OMPLE TE BLD COUNT W/DIF F NRBC# 0.00 x10'3 /uL Not Available [facility] (Lab) [address] [place], [address], 06/27/2024 14:44:45 06/27/2006/27/2024 URINA LYSIS COMPL ETE/I RIS W/RFX color YELLOW Not Available [facility] (Lab) [address] [place], [address], 06/27/2024 15:04:59 06/27/2006/27/2024 URINA LYSIS COMPL ETE/I RIS W/RFX appear CLEAR Not Available [facility] (Lab) [address] [place], [address], 06/27/2024 15:04:59 06/27/2006/27/2024 URINA LYSIS COMPL ETE/I RIS W/RFX specific gravity 1.015 1.001- 1.030 Not Available [facility] (Lab) [address] [place], [address], 06/27/2024 15:04:59 06/27/2006/27/2024 URINA LYSIS COMPL ETE/I RIS W/RFX pH 6.5 pH_un its 5.0-9. 0 Not Available [facility] (Lab) [address] [place], [address], 06/27/2024 15:04:59 06/27/2006/27/2024 URINA LYSIS COMPL ETE/I RIS W/RFX leukocytes NEGATI VE sunny/u L negati ve- Not Available [facility] (Lab) [address] [place], [address], 06/27/2024 15:04:59 06/27/2006/27/2024 URINA LYSIS COMPL ETE/I RIS W/RFX nitrite NEGATI VE negati ve- Not Available [facility] (Lab) [address] [place], [address], 06/27/2024 15:04:59 06/27/2006/27/2024 URINA LYSIS COMPL ETE/I RIS W/RFX protein NEGATI VE mg/dL negati ve- Not Available [facility] (Lab) [address] [place], [address], 06/27/2024 15:04:59 06/27/2006/27/2024 URINA LYSIS COMPL ETE/I RIS W/RFX glucose NORMAL mg/dL normal - Not Available [facility] (Lab) [address] [place], [address], 06/27/2024 15:04:59 06/27/2006/27/2024 URINA LYSIS COMPL ETE/I RIS W/RFX ketones NEGATI VE mg/dL negati ve- Not Available [facility] (Lab) [address] [place], [address], 06/27/2024 15:04:59 06/27/2006/27/2024 URINA LYSIS COMPL ETE/I RIS W/RFX urobilinogen NORMAL mg/dL normal - Not Available [facility] (Lab) [address] [place], [address], 06/27/2024 15:04:59 06/27/2006/27/2024 URINA LYSIS COMPL ETE/I RIS W/RFX bilirubin NEGATI VE mg/dL negati ve- Not Available [facility] (Lab) [address] [place], [address], 06/27/2024 15:04:59 06/27/20 24 06/27/2024 URINA LYSIS COMPL ETE/I RIS W/RFX blood NEGATI VE mg/dL negati ve- Not Available [facility] (Lab) [address] [place], [address], 06/27/2024 15:04:59 06/27/2006/27/2024 URINA LYSIS COMPL ETE/I RIS W/RFX white blood cells 0-8 /i??h pfi?? 0-8 Not Available [facility] (Lab) [address] [place], [address], 06/27/2024 15:04:59 06/27/2006/27/2024 URINA LYSIS COMPL ETE/I RIS W/RFX red blood cells 0-4 /i??h pfi?? 0-4 Not Available [facility] (Lab) [address] [place], [address], 06/27/2024 15:04:59 06/27/2006/27/2024 URINA LYSIS COMPL ETE/I RIS W/RFX bacteria NONE Not Available [facility] (Lab) [address] [place], [address], 06/27/2024 15:04:59 06/27/2006/27/2024 URINA LYSIS COMPL ETE/I RIS W/RFX mucous MODERA TE /i??l pfi?? abnormal Not Available [facility] (Lab) [address] [place], [address], 06/27/2024 15:04:59 06/27/2006/27/2024 URINA LYSIS COMPL ETE/I RIS W/RFX squamous epithelial NONE /i??l pfi?? abnormal Not Available [facility] (Lab) [address] [place], [address], 06/27/2024 15:04:59 06/27/2006/27/2024 COMPR EHENS LORNE METAB OLIC PANEL sodium 134 mmol/ L 137-14 5 low Not Available [facility] (Lab) [address] [place], [address], 06/27/2024 15:12:50 06/27/2006/27/2024 COMPR EHENS LORNE METAB OLIC PANEL potassium 4.9 mmol/ L 3.5-5. 1 Not Available [facility] (Lab) [address] [place], [address], 06/27/2024 15:12:50 06/27/2006/27/2024 COMPR EHENS LORNE METAB OLIC PANEL chloride 105 mmol/ L 98-107 Not Available [facility] (Lab) [address] [place], [address], 06/27/2024 15:12:50 06/27/2006/27/2024 COMPR EHENS LORNE METAB OLIC PANEL carbon dioxide 24 mmol/ L 22-30 Not Available [facility] (Lab) [address] [place], [address], 06/27/2024 15:12:50 06/27/2006/27/2024 COMPR EHENS LORNE METAB OLIC PANEL anion gap 9.9 mmol/ L 14-22 low Not Available [facility] (Lab) [address] [place], [address], 06/27/2024 15:12:50 06/27/2006/27/2024 COMPR EHENS LORNE METAB OLIC PANEL glucose 101 mg/dL 70-99 high Not Available [facility] (Lab) [address] [place], [address], 06/27/2024 15:12:50 06/27/2006/27/2024 COMPR EHENS LORNE METAB OLIC PANEL BUN 12 mg/dL 8-19 Not Available [facility] (Lab) [address] [place], [address], 06/27/2024 15:12:50 06/27/20 24 06/27/2024 COMPR EHENS LORNE METAB OLIC PANEL creatinine 1.12 mg/dL 0.66-1 .25 Not Available [facility] (Lab) [address] [place], [address], 06/27/2024 15:12:50 06/27/2006/27/2024 COMPR EHENS LORNE METAB OLIC PANEL GFR >60 Refer ence Range : [place] ge GFR Healt hy Adult : >60 mL/mi n/1.7 3 m2 Chron ic Kidne y Disea se: 15-60 mL/mi n/1.7 3 m2 Kidne y Failu re: <15/m L/min /1.73 m2 www.n iddk. nih.g ov The MDRD study equat ion has not been valid ated in child ronna <18 years of age; pregn ant women ; the elder ly >85 years of age; or in some racia l or ethni c subgr oups, such as Hispa nics. Outsi de the valid ated carl eters , estim ated GFR is less accur ate, requi ring clini diego judgm ent on a case- by-ca se basis . Clini diego inter preta tion for other races and ages must be made by the clini sally. The MDRD study equat ion has not been valid ated for the evalu ation of serum creat inine relat ed to nutri mazin l statu s or medic ation usage . For perso ns <18 years of age, a pedia tric GFR calcu lator is avail able on the [facility] websi te: https ://kee w.leah lua.o rg/pr fartuness ional s/kdo qi/gf r_cal culat or Not Available [facility] (Lab) [address] [place], [address], 06/27/2024 15:12:50 06/27/2006/27/2024 COMPR EHENS LORNE METAB OLIC PANEL alkaline phosphatase 79 U/L 38-126 Not Available [facility] (Lab) [address] [place], [address], 06/27/2024 15:12:50 06/27/2006/27/2024 COMPR EHENS LORNE METAB OLIC PANEL alanine aminotransfe rase 26 U/L 0-50 Not Available [facility] (Lab) [address] [place], [address], 06/27/2024 15:12:50 06/27/2006/27/2024 COMPR EHENS LORNE METAB OLIC PANEL aspartate aminotransfe rase 30 U/L 15-46 Not Available [facility] (Lab) [address] [place], [address], 06/27/2024 15:12:50 06/27/2006/27/2024 COMPR EHENS LORNE METAB OLIC PANEL bilirubin, total 0.80 mg/dL 0.20-1 .30 Not Available [facility] (Lab) [address] [place], [address], 06/27/2024 15:12:50 06/27/2006/27/2024 COMPR EHENS LORNE METAB OLIC PANEL calcium 9.3 mg/dL 8.4-10 .2 Not Available [facility] (Lab) [address] [place], [address], 06/27/2024 15:12:50 06/27/2006/27/2024 COMPR EHENS LORNE METAB OLIC PANEL total protein 6.4 g/dL 6.3-8. 2 Not Available [facility] (Lab) [address] [place], [address], 06/27/2024 15:12:50 06/27/2006/27/2024 COMPR EHENS LORNE METAB OLIC PANEL albumin 3.8 g/dL 3.0-4. 4 Not Available [facility] (Lab) [address] [place], [address], 06/27/2024 15:12:50 06/27/2006/27/2024 COMPR EHENS LORNE METAB OLIC PANEL globulin 2.6 g/dL 2.6-4. 2 Not Available [facility] (Lab) [address] [place], [address], 06/27/2024 15:12:50 06/27/2006/27/2024 COMPR EHENS LORNE METAB OLIC PANEL A/G ratio 1.5 ratio 1.0-2. 0 Not Available [facility] (Lab) [address] [place], [address], 06/27/2024 15:12:50 06/27/2006/27/2024 LIPAS E SERUM lipase 47 U/L 23-300 Not Available [facility] (Lab) [address] [place], [address], 06/27/2024 15:12:53 06/27/2006/27/2024 SEDIM ENTAT ION RATE erythrocyte sedimentatio n rate 10 mm/HR 0-20 Not Available [facility] (Lab) [address] [place], [address], 06/27/2024 15:31:05 10/29/1910/29/2024 LIPID PANEL cholesterol 154 mg/dL 140-19 9 NIH BIANCA NSUS RECOM MENDA TION FOR EVARISTO STERO L: ADULT CHILD LOW RISK: <200 <170 BORDE RLINE : <200- 239 ----- HIGH RISK: >240 >200 Not Available [facility] (Lab) [address] [place], [address], 10/29/2024 19:08:32 10/29/1910/29/2024 LIPID PANEL triglyceride s 46 mg/dL 0-150 NIH BIANCA NSUS REPOR T RECOM MENDA TION FOR TRIGL YCERI CHLOÉ: ADULT CHILD LOW RISK: <150 ----- BODER LINE: 150-1 99 ----- HIGH RISK: >200 ----- Not Available [facility] (Lab) [address] [place], [address], 10/29/2024 19:08:32 10/29/1910/29/2024 LIPID PANEL HDL cholesterol 67 mg/dL 40- Not Available [facility] (Lab) [address] [place], [address], 10/29/2024 19:08:32 10/29/1910/29/2024 LIPID PANEL LDL cholesterol, calculated 78 mg/dL 0-130 NIH BIANCA NSUS REPOR T RECOM MENDA TIONS FOR LDL: ADULT CHILD LOW RISK <130 <110 (OPTI MAL LDL) <100 ----- BORDE RLINE : 130-1 59 ----- HIGH RISK: >160 >130 A TRIGL YCERI DE RESUL T >400 INVAL IDATE S THE CALCU LATIO N FOR LDL FRACT IONAT ION - THE LDL RESUL T WILL NOT BE REPOR HAZEL. Not Available [facility] (Lab) [address] [place], [address], 10/29/2024 19:08:32 10/29/1910/29/2024 TSH W/REF BIBIANA FT4 TSH with reflex free T4 4.790 uIU/m L 0.465- 4.680 high Not Available [facility] (Lab) [address] [place], [address], 10/29/2024 19:36:32 10/29/1910/29/2024 T4 FREE free T4 1.25 NG/dL 0.78-2 .19 Not Available [facility] (Lab) [address] [place], [address], 10/29/2024 20:03:04 06/27/20 24 XR, lumbo sacra l spine , 2 or 3 view [facility] [address] [place], [place] [id number] [phone] Patien t Name: LISA GIBBS Access ion #: [id number] Sex: M : 1939 7 Dictat ed By: Hedy Merino Attend ing Physic dimitrios: KELLY MARKS ng Physic dimitrios: KELLY MARKS Exam Date: 2023 13:51 PM Exam Name: XR L SPINE 2-3V Admitt ing Diagno sis(es ): INDICA TION: LBP COMPAR FRANCISCO: None TECHNI QUE: 3 views of the lumbar spine were obtain ed. FINDIN GS: Straig htenin g of the lumbos acral spine. 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 No acute fractu re. The parave rtebra l soft tissue s are grossl y unrema rkable . IMPRES JOJO: No acute fractu re. 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 Electr onical ly Signed by: Hedy Merino at 2023 14:21: 18 PM Page 1 [id number] [facility] (Imaging) [address] [place], [address], 07/03/2024 16:15:01 06/27/20 24 XR, abdom en [facility] [address] [id number] Patien t Name: LISA GIBBS Access ion #: [id number] Sex: M : 1939 7 Dictat ed By: Hedy Merino Attend ing Physic dimitrios: KELLY MARKS ng Physic dimitrios: KELLY MARKS Exam Date: 2023 13:47 PM Exam Name: XR ABDOME N 2V Admitt ing Diagno sis(es ): Date: 2023 01:47 PM Examin ation: XR ABDOME N 2V Histor y: LLQ pain Compar francisco: None TECHNI QUE: Fronta l views of the abdome n was obtain ed. FINDIN GS: Bowel gas patter n is unrema rkable . Modera te stool burden . Calcif ic densit y measur ing 3.1 cm projec ting over the right upper quadra nt which may repres ent a gallst one. The lung bases are unrema rkable . No acute osseou s abnorm ality identi fied. Status post right hip arthro plasty . IMPRES JOJO: Nonobs tructi ve bowel gas patter n. Modera te stool burden . Electr onical ly Signed by: Hedy Merino at 2023 14:23: 59 PM Page 1 [facility] (Imaging) [address] [place], [address], 07/03/2024 16:15:01 Result Notes None recorded. Problems Name Problem SNOMED Code Status Onset Date Resolution Date Notes Provider Name and Address Organization Details Recorded Time Inguinal pain 187810437 Completed Not Available [facility] 3 06:14:40 Chronic obstruct lorne pulmonar y disease 20557432 Active 2018 Patient declines having COPD. Never smoker. 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 ion 917330999 Active Not Available [facility] 3 06:14:40 Paroxysm al atrial fibrilla tion 499011556 Active Not Available [facility] 3 06:14:41 Peripher al nerve disease 119852375 Active Not Available [facility] 3 06:14:41 Pain in right hip joint 35140818457 9102 Active 2020 Not Available [facility] 3 06:14:41 Inguinal hernia 309335231 Active Not Available [facility] 3 06:14:41 Osteoart hritis 496583442 Active 2021 Not Available [facility] 3 06:14:41 Hernia of abdomina l cavity 11707292 Active Not Available [facility] 3 06:14:41 Atrial flutter 5379180 Completed Not Available [facility] 3 06:14:41 Hyperlip idemia 57459600 Active Not Available [facility] 3 06:14:41 Essentia l hyperten jojo 69138511 Active Not Available [facility] 3 06:14:41 Polyp of colon 64383082 Active Not Available [facility] 3 06:14:41 Posterio r rhinorrh ea 11397582 Active Not Available [facility] 3 06:14:41 Divertic ulitis of colon 187514147 Active 2022 Lan Marks MD [address], [address], [place], [address] , [employer] [facility] [employer] [facility] 3 14:18:10 Chronic constipa tion 843746820 Active 2022 Lan Marks MD [address], [address], [place], [address] , [employer] [facility] [employer] [facility] 3 14:18:33 Hyperten sive disorder 70556479 Active 2022 Lan Marks MD [address], [address], [place], [address] , [employer] [facility] 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 2022 Michael Wolf DPM [address], [address], [place], [address] , [facility] 3 15:50:28 Divertic ular disease of colon 221810313 Active 2022 Mi Maldonado NP [address], [address], [place], [address] , [facility] 3 14:42:00 Lipoma of back 827827731 Active 2022 Mi Maldonado NP [address], [address], [place], [address] , [facility] 3 14:48:14 Neuropat hy 075592362 Active 2023 Lan Marks MD [address], [address], [place], [address] , 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 4 15:49:11 Acquired mallet toe 721322578 Active 2023 Michael Wolf DPM [address], [address], [place], [address] , [facility] 4 15:49:21 Hammer toe 228569686 Active 2023 Michael Wolf DPM [address], [address], [place], [address] , [facility] 4 15:49:31 Pain in toe 775812009 Active 2023 Michael Wolf DPM [address], [address], [place], [address] , [facility] 4 15:49:37 Callosit y on toe 706218779 Active 2023 Michael Wolf DPM [address], [address], [place], [address] , [facility] 4 15:49:45 Dystroph ia unguium 19550215 Active 2023 Michael Wolf DPM [address], [address], [place], [address] , [facility] 4 15:49:49 Chronic low back pain 883404351 Active 2023 Lan Marks MD [address], [address], [place], [address] , [facility] 4 16:14:08 Left lower quadrant pain 637196863 Active 2023 Lan Marks MD [address], [address], [place], [address] , [facility] 4 16:14:25 Suprapub ic pain 453363563 Active 2023 Lan Marks MD [address], [address], [place], [address] , [facility] 4 16:14:44 Low back strain 219265208 Active 2023 Lan Marks MD [address], [address], [place], [address] , [employer] 16:24:08 Degenera tion of lumbar interver tebral disc 87283094 Active 2023 Lan Marks MD [address], [address], [place], [address] , [facility] [employer] [facility] [employer] [facility] 16:35:02 Problem Notes None recorded. Procedures Surgical History Date Name Laterality Status Provider Name and Address Organization Details Recorded Time 08/07/20 24 Medicare Wellness CPT Code, subsequent completed Elisabeth Juan RN [place] [employer] 08/07/2024 09:03:36 05/20/20 24 Nail Debridement completed Michael Wolf DPM [address], [address], [place], [address], [employer] 05/20/2024 11:53:33 05/20/20 24 Callus Debridement, One completed Michael Wolf DPM [address], [address], [place], [address], [employer] 05/20/2024 11:53:39 07/20/20 23 colonoscopy completed Mi Maldonado NP [address], [address], [place], [address], [employer] [facility] [employer] [facility] 07/21/2023 07:44:43 01/11/20 23 Transitional_Care_ Management completed Poly Logan RN [place] [employer] [facility] [employer] [facility] 01/10/2023 14:06:51 12/01/19 23 total replacement of hip completed Poly Logan RN [place] [employer] 01/10/2023 14:10:37 01/21/20 21 colonoscopy completed Not Available [facility] 11/02/2022 06:08:21 09/04/19 15 Colonoscopy completed Not Available [facility] 11/02/2022 06:08:21 other completed Not Available [facility] 11/02/2022 06:08:21 Appendectomy completed Not Available [facility] 11/02/2022 06:08:21 tonsilectomy/adeno ids completed Not Available [facility] 11/02/2022 06:08:21 Cardiovascular Procedure completed Not Available [facility] 11/02/2022 06:08:21 Hernia Repair completed Not Available [facility] 11/02/2022 06:08:21 Imaging Results Imaging Date Name Status LastModified by Organiz ation Details LastModified Time 06/27/2024 XR, lumbosacral spine, 2 or 3 view completed [email or web address] [facility] (Imaging) [address] [place], [address], 07/03/2024 16:15:01 06/27/2024 XR, abdomen completed [facility] (Imaging) [address] [place], [address], 07/03/2024 16:15:01 Procedure Notes None recorded. Medical Equipment None Reported. Allergies No known drug allergies Medications Name Sig Start Date Stop Date Status Note LastModified by Organization Details LastModified Time status covid-19/ flu a&b antigen tst TEST DIRECTED TODAY 09/13 completed Not Available Not Available Not Available prednison e 10 mg tablet active Not Available Not Available Not Available tizanidin e 2 mg tablet Take 1 tablet every 12 hours by oral route as needed for 15 days. 07/03 completed Not Available Not Available Not Available sildenafi l 50 mg tablet TAKE 1 TABLET BY MOUTH ONCE DAILY ONE HOUR PRIOR TO ACTIVITY NEEDED active Not Available Not Available No t Available azithromy jessica 250 mg tablet TAKE 2 TABLETS (500 MG) BY ORAL ROUTE ONCE DAILY FOR 1 DAY THEN 1 TABLET (250 MG) BY ORAL ROUTE ONCE DAILY FOR 4 DAYS active Not Available Not Available No t Available hydrocodo ne 5 mg-acetam inophen 325 mg tablet active Not Available Not Available Not Available sotalol 80 mg tablet Take 1 tablet twice a day by oral route for 30 days. active Not Available Not Available No t Available fluoroura cil 5 % topical cream 05/30 completed Not Available Not Available Not Available metoprolo l succinate ER 100 mg tablet,ex tended release 24 hr active Not Available Not Available Not Available simvastat in 10 mg tablet TAKE 1 TABLET BY MOUTH DAILY active Not Available Not Available No t Available penicilli n V potassium 500 mg tablet active Not Available Not Available Not Available meclizine 12.5 mg tablet TAKE 1 TABLET BY MOUTH THREE TIMES DAILY NEEDED FOR DIZZINES S 04/17 completed Not Available Not Available Not Available metronida zole 500 mg tablet TAKE 1 TABLET BY MOUTH EVERY 8 HOURS FOR 5 DAYS 07/03 completed Not Available Not Available Not Available amlodipin e 5 mg tablet TAKE ONE TABLET BY MOUTH EVERY DAY FOR 30 DAYS 10/28 completed Not Available Not Available Not Available ciproflox acin 500 mg tablet TAKE 1 TABLET BY MOUTH EVERY 12 HOURS FOR 5 DAYS 07/03 completed Not Available Not Available Not Available sulfameth oxazole 800 mg-trimet hoprim 160 mg tablet Take 1 tablet every day by oral route. active Not Available Not Available No t Available acetamino phen 500 mg tablet TAKE 2 TABLETS BY MOUTH EVERY 6 HOURS 03/08 completed Not Available Not Available Not Available ketorolac 30 mg/mL (1 mL) injection solution Inject 1 mL as needed by intramus cular route for 1 day. 08/07 completed Not Available Not Available Not Available tamsulosi n 0.4 mg capsule 12/28 completed Not Available Not Available Not Available baclofen 10 mg tablet TAKE 1 TABLET BY MOUTH EVERY 8 HOURS NEEDED active Not Available Not Available No t Available amlodipin e 10 mg tablet TAKE 1 TABLET BY MOUTH EVERY DAY active Not Available Not Available No t Available cephalexi n 500 mg capsule TK FOUR CS PO 1 HOUR B DAPP ON April05/30 completed Not Available Not Available Not Available simvastat in 20 mg tablet TAKE ONE TABLET BY MOUTH AT BEDTIME 12/28 completed Not Available Not Available Not Available triamcino lone acetonide 0.1 % topical ointment RUB IN WELL TWICE DAILY TO INVOLVED AREAS OF BODY UNTIL CLEAR active Not Available Not Available No t Available hydrochlo rothiazid e 12.5 mg capsule TAKE 1 CAPSULE DAILY 12/28 completed Not Available Not Available Not Available docusate sodium 100 mg capsule TAKE 1 CAPSULE BY MOUTH TWICE DAILY NEEDED active Not Available Not Available No t Available gabapenti n 300 mg capsule Take 1 capsule every day by oral route at bedtime for 90 days. active Not Available Not Available No t Available triamtere ne 37.5 mg-hydroc hlorothia zide 25 mg tablet 03/18 completed Not Available Not Available Not Available aspirin 81 mg chewable tablet Chew 1 tablet every day by oral route for 90 days. 03/18 completed Not Available Not Available Not Available diclofena c sodium 75 mg tablet,de layed release TAKE 1 TABLET BY MOUTH TWICE DAILY FOR 15 DAYS NEEDED active Not Available Not Available No t Available hydroxyzi ne HCl 25 mg tablet active Not Available Not Available No t Available methylpre dnisolone 4 mg tablets in a dose pack Use as directed 12/19 completed Not Available Not Available Not Available celecoxib 100 mg capsule 12/14 completed Not Available Not Available Not Available oxybutyni n chloride 5 mg tablet 10/26 completed Not Available Not Available Not Available doxycycli ne hyclate 100 mg tablet 12/14 completed Not Available Not Available Not Available finasteri de 5 mg tablet TAKE 1 TABLET BY MOUTH DAILY active Not Available Not Available No t Available ramipril 10 mg capsule TAKE 1 CAPSULE BY MOUTH EVERY DAY active Not Available Not Available No t Available amoxicill in 875 mg-potass ium clavulana te 125 mg tablet TAKE 1 TABLET BY MOUTH EVERY 12 HOURS FOR 3 DAYS DIRECTED 01/27 completed Not Available Not Available Not Available Aspir-Tri n 325 mg tablet,de layed release Take 1 tablet every day by oral route. 12/14 completed Not Available Not Available Not Available oxycodone 5 mg tablet TAKE 1 TABLET BY MOUTH EVERY 4 HOURS 01/27 completed Not Available Not Available Not Available alfuzosin ER 10 mg tablet,ex tended release 24 hr TAKE 1 TABLET BY MOUTH ONCE DAILY active Not Available Not Available No t Available nitrofura ntoin monohydra te/macroc rystals 100 mg capsule Take 1 capsule twice a day by oral route with meals for 2 days. 07/12 completed Not Available Not Available Not Available aspirin active Not Available Not Avail able Not Available Centrum Silver 1 po qd 12/28 completed Not Available Not Available Not Available Calcium 600 + D(3) 2 PO QD 12/28 completed Not Available Not Available Not Available PreserVis ion AREDS 2 PO QD 03/01 completed Not Available Not Available Not Available Zostavax (PF) 19,400 unit/0.65 mL subcutane ous suspensio n 07/12 completed Not Available Not Available Not Available MoviPrep 100 gram-7.5 gram-2.69 1 gram oral powder packet 10/30 completed Not Available Not Available Not Available Fish Oil 1,000 mg capsule Take 1 capsule every day by oral route for 90 days. 03/18 completed pt. stopped Not Available Not Available Not Available CoQ-10 100 mg capsule Take 2 capsules every day by oral route for 90 days. 12/30 completed Not Available Not Available Not Available sodium,po tassium,m ag sulfates 17.5 gram-3.13 gram-1.6 gram oral soln MIX AND DRINK DIRECTED 09/13 completed Not Available Not Available Not Available Myrbetriq 25 mg tablet,ex tended release Take 1 tablet twice a day by oral route. 07/12 completed Not Available Not Available Not Available Eliquis 5 mg tablet Take 1 tablet twice a day by oral route for 30 days. active Not Available Not Available No t Available Eliquis 2.5 mg tablet TAKE 1 TABLET BY MOUTH EVERY 12 HOURS 01/27 completed Not Available Not Available Not Available Stimulant Laxative Plus 8.6 mg-50 mg tablet TAKE 2 TABLETS BY MOUTH TWICE DAILY 01/27 completed Not Available Not Available Not Available Digox 250 mcg (0.25 mg) tablet Take 1 tablet every day by oral route for 90 days. active Not Available Not Available No t Available Flucelvax Quad (PF) 60 mcg (15 mcg x 4)/0.5 mL IM syringe 10/26 completed Not Available Not Available Not Available Fluad Quad (65yr up)(PF) 60 mcg (15 mcg x 4)/0.5mL IM syringe active Not Available Not Available Not Available Vitals Date Recorded Body height Body mass index (BMI) Body weight Body temperature Heart rate Respiratory rate Oxygen saturation Oxygen saturation in Arterial blood by Pulse oximetry Systolic blood pressure Diastolic blood pressure Provider Name and Address Organization Details Last Updated DateTime 4 185.42 cm 26 kg/m2 80188.1 5 g 98.4 [degF] 72 /min 20 /min 99 % 99 % 128 mm[Hg] 78 mm[Hg] Elvin Clay [facility] [employer] [facility] 4 16:07:45 Date Recorded Body height Body mass index (BMI) Body weight Body temperature Oxygen saturation Oxygen saturation in Arterial blood by Pulse oximetry Heart rate Systolic blood pressure Diastolic blood pressure Provider Name and Address Organization Details Last Updated DateTime 4 182.88 cm 26.9 kg/m2 41298.7 4 g 98.1 [degF] 95 % 95 % 72 /min 130 mm[Hg] 70 mm[Hg] Mary Stafford RN [facility] [employer] [facility] 4 16:12:37 Date Recorded Body height Body mass index (BMI) Body weight Body temperature Oxygen saturation Oxygen saturation in Arterial blood by Pulse oximetry Heart rate Systolic blood pressure Diastolic blood pressure Provider Name and Address Organization Details Last Updated DateTime 4 182.88 cm 26.6 kg/m2 16406.8 5 g 97.6 [degF] 96 % 96 % 70 /min 122 mm[Hg] 64 mm[Hg] Mary Stafford RN [facility] [employer] [facility] 4 09:40:20 Date Recorded Body height Body mass index (BMI) Body weight Body temperature Oxygen saturation Oxygen saturation in Arterial blood by Pulse oximetry Heart rate Provider Name and Address Organization Details Last Updated DateTime 5 182.88 cm 27.3 kg/m2 48156.7 7 g 97.9 [degF] 96 % 96 % 80 /min Mary Stafford RN [facility] [employer] [facility] 5 09:59:03 Date Recorded Systolic blood pressure Diastolic blood pressure Provider Name and Address Organization Details Last Updated DateTime 11/05/2024 148 mm[Hg] 80 mm[Hg] Lan Marks MD [address] [address], [place], [address], [facility] [employer] [facility] 11/05/2024 10:12:47 Social History Question Answer Notes LastModified by Organizat ion Details LastModified Time Tobacco Smoking Status Never Smoker Not Available [employer] 11/02/2022 06:07:57 Do You Have An Advance Directive? No [id number] Information not available 11/02/2022 What Is Your Level Of Alcohol Consumption? Occasional [id number] Information not available 11/02/2022 Are You Blind Or Do You Have Difficulty Seeing? No [id number] Information not available 11/02/2022 Is Blood Transfusion Acceptable In An Emergency? Yes Information not available 03/08/2023 What Is Your Level Of Caffeine Consumption? Occasional [id number] Information not available 11/02/2022 In The 14 Days Before Symptom Onset, Have You Had Close Contact With A Laboratory-confir med COVID-19 While That Case Was Ill? No Information not available 03/08/2023 In The 14 Days Before Symptom Onset, Have You Had Close Contact With A Person Who Is Under Investigation For COVID-19 While That Person Was Ill? No Information not available 03/08/2023 Are You Deaf Or Do You Have Serious Difficulty Hearing? No [id number] Information not available 11/02/2022 What Type Of Diet Are You Following? REGULAR [id number] Information not available 11/02/2022 What Is The Highest Grade Or Level Of School You Have Completed Or The Highest Degree You Have Received? [id number].[id number] Information not available 11/02/2022 What Is Your Occupation? Retired [id number] Information not available 11/02/2022 How Many Days Of Moderate To Strenuous Exercise, Like A Brisk Walk, Did You Do In The Last 7 Days? 2 Information not available 03/08/2023 On Those Days That You Engage In Moderate To Strenuous Exercise, How Many Minutes, On Average, Do You Exercise? 30 Information not available 03/08/2023 Have There Been Any Changes To Your Family Or Social Situation? No [id number].[id number] Information not available 11/02/2022 Do You Use Insect Repellent Routinely? No Information not available 03/08/2023 Where Do You Live? [facility] [id number] Information not available 11/02/2022 Do You Have A Medical Power Of Dry Goods Clerk? No [id number] Information not available 11/02/2022 What Was The Date Of Your Most Recent Tobacco Screening? 04/24/2023 Information not available 04/24/2023 Have You Ever Been Counseled For Unhealthy Alcohol Use? No Information not available 04/24/2023 Do You Have Any Pets? No [id number] Information not available 11/02/2022 What Is Your Relationship Status? [id number] Information not available 11/02/2022 Do You Use Your Seat Belt Or Car Seat Routinely? Yes Information not available 03/08/2023 Do You Have Smoke And Carbon Monoxide Detectors In Your Home? Yes [id number] Information not available 11/02/2022 Are You Passively Exposed To Smoke? No MIGRATION.[id number] 1879 Information not available 11/02/2022 Are There Any Smokers In Your House? No MIGRATION.[id number] Information not available 11/02/2022 Do You Participate In Social Media? No Information not available 03/08/2023 What Types Of Sporting Activities Do You Participate In? Walks Information not available 03/08/2023 Do You Feel Stressed (tense, Restless, Nervous, Or Anxious, Or Unable To Sleep At Night)? [id number] Information not available 09/13/2023 Do You Use Any Illicit Or Recreational Drugs? No MIGRATION.[id number] Information not available 11/02/2022 Do You Use Sunscreen Routinely? No Information not available 03/08/2023 Has Tobacco Cessation Counseling Been Provided? No Information not available 04/24/2023 Have You Recently Traveled Abroad? No Information not available 03/08/2023 Do You Or Have You Ever Used Any Other Forms Of Tobacco Or Nicotine? No Information not available 04/24/2023 Sex: Unknown Functional Status Question Answer Note LastModified by Organizat ion Details LastModified Time Do you have difficulty walking or climbing stairs? No [id number] Information not available 11/02/2022 Do you have transportation difficulties? No [id number] 026 Information not available 11/02/2022 Are you able to walk? YESWOREST MIGRATION.[id number] 026 Information not available 11/02/2022 Do you have difficulty doing errands alone? No MIGRATION.[id number] 026 Information not available 11/02/2022 Are you able to care for yourself? No [id number].[id number] 026 Information not available 11/02/2022 Do you have difficulty dressing or bathing? No MIGRATION.[id number] 026 Information not available 11/02/2022 What is your exercise level? Occasional [id number].[id number] 026 Information not available 11/02/2022 Mental Status Question Answer Note LastModified by Organizat ion Details LastModified Time Do you have difficulty concentrating, remembering or making decisions? No [id number] Information not available 11/02/2022 Family History Relationship Description Onset Age of this Age Resolved Age Notes LastModified by Organization Details LastModified Time Unspecified Relation Hypertensive disorder Not available 2022 15:46:32 Unspecified Relation Heart disease Not available 2022 15:46:46 Father Myocardial infarction [id number] Not available 11/02/2022 06:08:25 Medical History Condition Response BOWEL PROBLEMS Y URINARY/BLADDER/KIDNEY PROBLEMS Y SKIN PROBLEMS Y HYPERTENSION Y ALLERGIES/HAYFEVER Y PROSTATE Y HIGH CHOLESTEROL / HYPERLIPIDEMIA Y EYE PROBLEMS Y HEART DISEASE/HEART PROBLEMS Y CARDIAC ARRHYTHMIA Y CANCER: SPECIFY Y Immunizations Vaccine Type Date Status Note Provider Nam e and Address Organization Details Recorded Time Influenza, split virus, trivalent, PF 3 completed Not Available [facility] 11/02/2022 06:20:23 SARS-COV-2 (COVID-19) vaccine, UNSPECIFIED 1 completed Not Available [facility] 11/02/2022 06:20:23 SARS-COV-2 (COVID-19) vaccine, UNSPECIFIED 2 completed Not Available [facility] 11/02/2022 06:20:23 influenza, unspecified formulation 2 completed Not Available [facility] 11/02/2022 06:20:23 COVID-19, mRNA, LNP-S, PF, 100 mcg/0.5mL dose or 50 mcg/0.25mL dose 1 completed Not Available [facility] 11/02/2022 06:20:24 Influenza, split virus, quadrivalent, preservative 0 completed Not Available [facility] 11/02/2022 06:20:24 Influenza, split virus, quadrivalent, preservative 0 completed Not Available [facility] 11/02/2022 06:20:24 Influenza, split virus, quadrivalent, preservative 9 completed Not Available [facility] 11/02/2022 06:20:24 zoster live 7 completed Not Available [facility] 11/02/2022 06:20:24 Tdap 1 completed Not Available [facility] 11/02/2022 06:20:24 pneumococcal polysaccharide PPV23 8 completed Not Available [facility] 11/02/2022 06:20:24 Tdap 3 completed Not Available [facility] 11/02/2022 06:20:24 Influenza, high-dose, trivalent, PF 8 completed Not Available [facility] 11/02/2022 06:20:24 Influenza, high-dose, trivalent, PF 7 completed Not Available [facility] 11/02/2022 06:20:24 Pneumococcal conjugate PCV 13 7 completed Not Available [facility] 11/02/2022 06:20:24 Influenza, split virus, quadrivalent, preservative 6 completed Not Available [facility] 11/02/2022 06:20:24 Influenza, high-dose, trivalent, PF 5 completed Not Available [facility] 11/02/2022 06:20:25 Influenza, high-dose, trivalent, PF 4 completed Not Available [facility] 11/02/2022 06:20:25 Past Encounters Encounter ID Performer Location Encounter Start Date Encounter Closed Date Diagnosis/Indication Diagnosis SNOMED-CT Code Diagnosis ICD10 Code Diagnosis Note [id number] [facility] Al[address] [place] [id number] 04/26/2021 00:00:00 04/26/2021 09:58:29 [id number] [facility] [place] [place] [address] 10/28/2021 00:00:00 10/28/2021 10:18:49 [id number] S_G [facility] [address] [place] [address] 04/27/2022 00:00:00 04/27/2022 10:37:15 [id number] [facility] [place] [address] [place] [address] 05/06/2022 00:00:00 05/11/2022 13:44:51 [id number] [facility] [place] [address] [place] [address] 07/22/2022 00:00:00 07/22/2022 09:47:16 [id number] [facility]_[address] [address] 09/06/2022 00:00:00 09/06/2022 15:08:05 [id number] SANDRA Valenzuela [facility] [place] [address] [place] [address] 12/14/2022 09:07:12 12/14/2022 10:20:51 History of total replacement of right hip joint [id number] 91482 Z96.641 [id number] Javier Zazueta MD [facility] [place] [facility] [place] [address] [place] [address] 12/30/2022 10:36:56 01/02/2023 10:28:22 History of total replacement of right hip joint 7731592823 48523 Z96.641 [id number] Lan Marks MD [facility]_[address] [address] 01/10/2023 14:04:03 01/10/2023 14:42:56 Transition of care 4105758427 105 Z75.8 [facility] 7[facility] Z76.89 Diverticul itis of colon 561712981 K57.32 Chronic constipation 236 482734 K59.09 Hypertensive disorder 38 375677 I10 Hyperlipidemia 36033924 E78.5 Benign pro static hyperplasia without outflow obstruction 957977170 N40.0 Osteoarthritis 016736760 M16.11 [id number] Javier Zazueta MD [facility] [place] [address] [place] [address] 01/27/2023 10:16:50 01/31/2023 09:41:43 History of total replacement of right hip joint 0217209849 76408 Z96.641 [id number] Mi Maldonado NP [address] [address] 03/08/2023 10:30:34 03/08/2023 11:41:44 Benign prostatic hyperplasia 818147350 N40.0 Finasterid e 5 mg po daily- can't donate blood if had within 30 days of draw. Switches over to uroxitrol for 30 days prior to blood draw. (alfuzosin ER 10 mg) Hyperlipidemia 55955721 E78.5 simvastati n 10 mg po daily Essential hypertension 54710113 I10 amlodipine 10 mg po dailyramip ril 10 mg po daily Osteoarthritis 169456276 M16.11 stable. Chronic ob structive pulmonary disease 48950582 J44.9 Chronic constipation 236 882187 K59.09 docusate sodium bid Peripheral nerve disease 618937414 G64 gabapentin 300 mg po nightly. Bilateral feet and lower leg. 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 Hyperlipidemia 14519968 E78.5 simvastati n 10 mg po daily, pt taking every other day or 3 days weekly. Lipoma of back 078280941 D17.1 5 cm x 4.5 cm. Monitoring . [id number] Mi Maldonado NP [address] [address] 09/13/2023 10:15:18 09/13/2023 11:30:56 Benign prostatic hyperplasia 585890238 N40.0 Finasterid e 5 mg po daily- can't donate blood if had within 30 days of draw. Switches over to uroxitrol for 30 days prior to blood draw. (alfuzosin ER 10 mg) Hyperlipidemia 14955251 E78.5 simvastati n 10 mg po daily, but patient takes every other day. Essential hypertension 93833997 I10 amlodipine 10 mg po dailyramip ril 10 mg po daily Osteoarthritis 182875818 M16.11 stable. Chronic ob structive pulmonary disease 11170449 J44.9 Chronic constipation 236 177662 K59.09 docusate sodium bid Peripheral nerve disease 009459839 G64 gabapentin 300 mg po nightly. Bilateral feet and lower leg. Nocturia 291456894 R35.1 Diverticul itis of colon 297712085 K57.32 diet mods [id number] SANDRA Valenzuela [facility] [place] [address] [place] [address] 11/15/2023 14:41:42 11/15/2023 16:11:24 History of total replacement of right hip joint 5054533203 41109 Z96.519 [id number] Lan Marks MD [address] [address] 03/13/2024 09:47:08 03/13/2024 10:39:58 Hypertensive disorder 44923824 I10 Hyperlipidemia 04495209 E78.5 Neuropathy 282979800 G62 .9 Benign pro static hyperplasia without outflow obstruction 390614050 N40.0 History of atrial fibrillation 467800033 Z86.79 Bilateral hearing loss 70571269 H91.93 Chronic Chronic constipation 236 667082 K59.09 [id number] Lan Marks MD [address] [address] 03/28/2024 13:58:08 03/28/2024 14:38:19 Hypertensive disorder 90562716 I10 Hyperlipidemia 47203163 E78.5 Neuropathy 558021607 G62 .9 Benign pro static hyperplasia without outflow obstruction 587110192 N40.0 History of atrial fibrillation 784521605 Z86.79 Bilateral hearing loss 87128871 H91.93 Chronic Chronic constipation 236 991481 K59.09 [facility] 451081885 Z76.89 Vertigo 176049461 R42 resolved [id number] Lan Marks MD [place] [address] 04/17/2024 10:09:06 04/17/2024 10:52:37 Hypertensive disorder 44960944 I10 Hyperlipidemia 05022328 E78.5 Neuropathy 272752954 G62 .9 Benign pro static hyperplasia without outflow obstruction 231690974 N40.0 History of atrial fibrillation 564606926 Z86.79 Bilateral hearing loss 98003419 H91.93 Chronic Chronic constipation 236 451700 K59.09 Screening for malignant neoplasm of prostate 161072890 Z12.5 [id number] Lan Marks MD [address] [address] 05/08/2024 09:29:32 05/08/2024 09:54:18 Hyperlipidemia 70820005 E78.5 Hypertensive disorder 38 939407 I10 Neuropathy 257409173 G62 .9 Benign pro static hyperplasia without outflow obstruction 231115035 N40.0 History of atrial fibrillation 600980350 Z86.79 Bilateral hearing loss 23127556 H91.93 Chronic Chronic constipation 236 405987 K59.09 Subclinica l hypothyroidism 73457022 E02 [id number] Michael Wolf DPM [facility] [place] [address] [place] [address] 05/20/2024 11:06:12 05/21/2024 12:02:15 Pain in toe 628290993 M79.674 M79.675 secondary to deformitie s and callus Hammer toe 356365897 M20 .40 conservati ve options reviewedDe nies surgeryrec ommend wide soft toe box style shoes and conservati ve offloading measures reviewed with the patientFol low-up as needed 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 Nails were debrided and greater than 50% length and thickness where needed. [id number] Lan Marks MD [address] [address] 06/26/2024 15:49:04 06/26/2024 16:47:27 Chronic low back pain 560491467 M54.50 Left lower quadrant pain 608495809 R10.32 Suprapubic pain 30216029 6 R10.30 Diverticul itis of colon 063010748 K57.32 Low back strain 39056837 1 S39.012A [id number] Lan Marks MD [address] [address] 07/03/2024 15:56:20 07/03/2024 16:36:26 Low back strain 188064366 S39.012A Improved Chronic low back pain 27 1212206 M54.50 Left lower quadrant pain 019394718 R10.32 Improved Suprapubic pain 75134065 6 R10.30 Resolved Diverticul itis of colon 235572591 K57.32 Resolved Degenerati on of lumbar intervertebral disc 88946472 M51.369 Chronic constipation 236 944492 K59.09 [id number] Lan Marks MD [address] [address] 08/07/2024 09:20:48 08/07/2024 10:02:02 Adult health examination 482036541 Z00.00 Screening for disorder 890957331 Z13.9 Subclinica l hypothyroidism 81012375 E02 Hyperlipidemia 55126507 E78.5 Hypertensive disorder 38 301048 I10 Neuropathy 333781676 G62 .9 Benign pro static hyperplasia without outflow obstruction 504666447 N40.0 History of atrial fibrillation 409150216 Z86.79 Bilateral hearing loss 34310239 H91.93 Chronic Chronic constipation 236 470991 K59.09 [id number] Lan Marks MD [address] [address] 10/29/2024 10:11:25 11/01/2024 15:06:10 [id number] Lan Marks MD [address] [address] 11/05/2024 09:54:30 11/05/2024 10:17:25 Subclinical hypothyroidism 98335670 E02 Hyperlipidemia 73709234 E78.5 Hypertensive disorder 38 145848 I10 Neuropathy 811756686 G62 .9 Benign pro static hyperplasia without outflow obstruction 546847727 N40.0 History of atrial fibrillation 236824973 Z86.79 Bilateral hearing loss 77942729 H91.93 Chronic Chronic constipation 236 728903 K59.09 Health Concerns Section Related Observation LastModified by Organization Detai ls LastModified Time None Recorded Concern Status LastModified by Organization Details LastModified Time None Recorded Advance Directives Directive N: Payers Encounter Date Sequence Insurance Name Policy Number Policy Rosales Covered Member ID Rosales Member ID Guarantor Name 06/26/2024 1 [place] [id number] 1 [id number] Live Low 06/26/2024 2 [place] 104 Live [place] [id number] Live Low 07/03/2024 1 [place] [id number] Live [place] 07/03/2024 2 [place] 104 Live Low [id number] Live [place] 08/07/2024 1 [place] [id number] Live [place] 08/07/2024 2 [place] 104 Live Low [id number] Live [place] 10/29/2024 1 [place] [id number] 1 [id number] Live [place] 10/29/2024 2 [place] 104 Live [place] [id number] Live [place] 11/05/2024 1 [place] [id number] 1 [id number] Live [place] 11/05/2024 2 [place] 104 Live Low [id number] Live Low Notes Date Note Type Note Provider Name and Address Organization Details Recorded Time 06/26/2024 text/html ACV: C/o Lt lower abdominal and suprapubic area pain for last 3-4 weeks. Denies any fever/chills/n/v/c/d /blood in stool. H/o diverticulitis in 01/24. C/o Lt lower back area pain for last 3-4 weeks. Pt says he did few new exercises in his work out routine few weeks ago and he did some travel too. Denies any fall/injury. Denies any incontinence. Good PO intake ++. Lan Marks MD [address] [place] [address], [place] [address], [place], [address], [place] [employer] 06/26/2024 16:49:50 07/03/2024 text/html Pt is here for f /u on his labs, x-ray and pain. Feeling overall better than his last visit. His abdominal pain is almost gone and he is tolerating po feeding well. Denies any problem with meds. C/o Lt lower abdominal and suprapubic area pain for last 3-4 weeks. Denies any fever/chills/n/v/c/d /blood in stool. H/o diverticulitis in 01/24. C/o Lt lower back area pain for last 3-4 weeks. Pt says he did few new exercises in his work out routine few weeks ago and he did some travel too. Denies any fall/injury. Denies any incontinence. Lan Marks MD [address], [address], [place], [address], [employer] 07/03/2024 16:35:31 08/07/2024 text/html Pt is here for f /u on his labs and chronic conditions. Doing overall well. Denies any problem with meds. Denies any new concern. Pt forgot to go for labs. Pt's Lt abdominal pain is completely gone and he is doing well with it. No more concern. Pt is taking Atorvastatin 4 times per week. Denies any s/e from med. Pt is f/u with Cardio, Uro & Ophtho and is doing well. Lan Marks MD [address], [facility] [address], [place], [address], [employer] 08/07/2024 09:56:45 11/05/2024 text/html Pt is here for f /u on his labs and chronic conditions. Doing overall well. Denies any problem with meds. Denies any new concern. Pt's Lt abdominal pain is completely gone and he is doing well with it. No more concern. Pt is f/u with Cardio, Uro & Ophtho and is doing well. Lan Marks MD [address], [address], [place], [address], [employer] 11/05/2024 10:16:07
[2024-11-25 09:40] LABS: Basophils Absolute Auto 0.1 K/mm3 (0.0-0.1); Basophils Percent Auto 1.1 % (0.2-1.2); Eosinophils Absolute Auto 0.1 K/mm3 (0-0.3); Eosinophils Percent Auto 1.7 % (0-4.4); Hematocrit 46.3 % (42.0-52.0); Hemoglobin 15.8 g/dL (14.0-18.0); Immature Granulocyte Absolute 0.01 K/mm3 (0.00-0.031); Immature Granulocyte Percent A 0.2 % (0-0.5); Lymphocytes Absolute Auto 0.71 K/mm3 (0.9-3.2); Lymphocytes Percent Auto 13.1 % (18.3-44.2); Mean Corpuscular HGB Conc 34.1 g/dl (32-36); Mean Corpuscular Hemoglobin 30.8 pg (26-34); Mean Corpuscular Volume 90.3 fl (80-100); Monocytes Absolute Auto 0.7 K/mm3 (0.1-0.6); Monocytes Percent Auto 12.9 % (2.6-8.5); Neutrophils Absolute Auto 3.9 K/mm3 (1.3-6.7); Platelet Count Result 222 k/mm3 (150-375); Red Blood Count 5.13 M/mm3 (4.6-6.20); Red Cell Distribution Width 13.4 % (11.5-14.5); White Blood Count 5.4 K/mm3 (4.5-10.0)
[2024-11-25 09:41] LABS: Add Urine Microscopic? NO; Appearance Urine Clear (Clear); Bilirubin Urine Negative (Negative); Blood Urine Negative (Negative); Color Urine Yellow (Yellow); Glucose Urine UA Negative (Negative); Ketones Urine Negative (Negative); Leukocyte Esterase Ur Negative LEU/UL (Negative); Nitrate Urine Negative (Negative); Protein Urine Negative (Negative); Urobilinogen Urine 0.2 mg/dL (<2.0); pH Urine 7.5 (5.0-9.0)
[2024-11-25 09:52] LABS: Alanine Aminotransferase 31 U/L (6-50); Albumin Level 4.4 g/dL (3.5-5.1); Alkaline Phosphatase 79 U/L (38-126); Anion Gap 9 mmol/L (4-12); Aspartate Amino Transferase 33 U/L (17-59); Bilirubin,Total 1.1 mg/dL (0.2-1.3); Blood Urea Nitrogen 12 mg/dL (9-20); Carbon Dioxide 25 mmol/L (22-30); Chloride 104 mmol/L (98-107); Estimated CRCL calculation 49 ml/min; Estimated Glomerular Filt Rate > 60; Glucose 105 mg/dL (65-110); Lipase 42 U/L (23-300); Sodium 138 mmol/L (137-145)
--- NOTE | 2024-11-25 10:07 | ED_ITS ---
HPI - Abdominal Pain General Chief Complaint: Abdominal Pain Stated Complaint: left flank pain Time Seen by Provider: 11/25/24 09:41 History of Present Illness HPI narrative: Pt presents with complaints of constipation and taking dulcolax and miralax without relief. Pt has a history of diverticulitis. Pt denies fever or vomiting. Related Data Home Medications ?Medication ?Instructions ?Recorded ?Confirmed ?Last Taken ?Type finasteride 5 mg tablet 5 mg PO DAILY 01/07/21 03/19/24 11/29/22 History sildenafil 25 mg tablet (Viagra) 25 mg PO DAILY PRN Sexual Activity 01/07/21 03/19/24 Unknown History amlodipine 10 mg tablet 10 mg PO QAM 02/15/21 03/19/24 07/20/23 05:00 History coenzyme Q10 30 mg capsule (CoQ-10) 30 mg PO DAILY 02/15/21 03/19/24 11/23/22 History ramipril 10 mg capsule 10 mg PO HS 02/15/21 03/19/24 11/29/22 History simvastatin 10 mg tablet 10 mg PO EVERY OTHER DAY 02/15/21 03/19/24 11/29/22 History vit C 250 mg-vit E 90 mg-zinc 40 1 tablet PO BID 02/15/21 03/19/24 11/23/22 History mg-copper 1 [id number] capsule (PreserVision AREDS-2) Prevagen 1 tab-cap PO DAILY 09/15/22 03/19/24 11/23/22 History triamcinolone acetonide 0.1 % 1 ea topical BID PRN Rash 09/15/22 03/19/24 11/29/22 History topical ointment aspirin 81 mg tablet,delayed 81 mg PO DAILY 11/30/22 03/19/24 07/18/23 History release docusate sodium 100 mg capsule 100 mg PO DAILY PRN Constipation 05/17/23 03/19/24 Unknown History gabapentin 300 mg capsule 300 mg PO QHS 05/17/23 03/19/24 Unknown History polyethylene glycol 3350 17 gram 17 g PO QAM PRN CONTSTIPATION 07/06/23 03/19/24 Unknown History oral powder packet (Miralax) Allergies Allergy/AdvReac Type Severity Reaction Status Date / Time No Known Allergies Allergy Verified 11/25/24 08:22 Review of Systems 2 Review of Systems: All systems reviewed & are unremarkable except as noted in HPI and below PMFSH Past Medical History Medical History Arthritis Atrial fibrillation Status post cardiac ablation. Basal cell carcinoma of skin Benign prostatic hyperplasia Dyslipidemia Hypertension Paroxysmal atrial flutter Surgical History Surgical History History of bilateral cataract extraction History of cardiac radiofrequency ablation 2014 and 2015 History of cataract extraction with lens replacement (2005) History of colonoscopy with polypectomy History of inguinal hernia repair, bilateral (2014) Laparoscopic bilateral inguinal hernia repair w/ 3DMax mesh. History of tonsillectomy History of total right hip arthroplasty (11/30/22) History of umbilical hernia repair History of ventral hernia repair (2014) Open ventral hernia repair with Proceed ventral patch. Status post excision of lipoma Family History Family History Mother Hypertension Congestive heart failure Father Acute myocardial infarction Social History Social History Social History: Surrogate medical decision maker: Gladys Negronmeter, spouse. Code status: Full code. Smoking status: Never smoker Alcohol intake: current Drinks per week: 3 Alcohol use details: RARELY Substance use: never Substance use type: does not use Living arrangements: with family Additional living arrangements comments: Lives with in [place]. 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 Works for [employer] thereafter. Spiritual care concerns: No Exam 2 Const: General: healthy appearing and no acute distress Nutritional Appearance: well nourished Orientation/consciousness: patient oriented x3 Limitations: no limitations Eyes: Pupils: Equal, round and reactive pupils present EOM: EOMs intact bilaterally Neck: Neck: normal visual inspection Chest: Chest palpation & inspection: normal inspection of the chest Resp: Effort & Inspection: normal respiratory effort Auscultation: clear to auscultation bilaterally Cardio: Rate: regular rate Rhythm: regular rhythm GI: GI Palp: Yes Soft to palpation and No Tenderness to palpation present (GI) Auscultation: normal bowel sounds Back/Spine/Pelvis: Back: no CVA tenderness Skin: General skin exam: normal color Rashes: no rashes Neuro: General: patient oriented x3, moves all extremities, no focal motor deficits and CN's II-XI intact bilaterally Speech: normal speech Extrem: General: normal to inspection and no clubbing, cyanosis or edema Psych: Mental Status: mental status grossly normal Affect: normal affect Attitude: cooperative Course Vital Signs Vital signs: Vital Signs Temperature 97.9 F 11/25/24 08:22 Pulse Rate 73 11/25/24 08:22 Respiratory Rate 15 11/25/24 08:22 Blood Pressure 150/79 H 11/25/24 08:22 Pulse Oximetry 100 11/25/24 08:22 Oxygen Delivery Room Air 11/25/24 08:22 Temperature 97.9 F 11/25/24 08:22 Pulse Rate 65 11/25/24 11:48 Respiratory Rate 16 11/25/24 11:48 Blood Pressure 138/81 11/25/24 11:48 Pulse Oximetry 100 11/25/24 11:48 Oxygen Delivery Room Air 11/25/24 08:22 MDM - Abdominal Pain MDM Narrative Medical decision making narrative: Pt has had intermittent LLQ pain for weeks but has improved now. Pt has constipation and has been taking laxatives without much relief. Pt is concerned about his diverticulitis coming back. will get UA and labs and CT. labs unremarkable. CT shows incidental gallstones no diverticulitis. Lab Data 11/25/24 09:29 11/25/24 09:30 Labs: Lab Results 11/25/24 11/25/24 Range/Units 09:29 09:30 WBC 5.4 (4.5-10.0) K/mm3 RBC 5.13 (4.6-6.20) M/mm3 Hgb 15.8 D (14.0-18.0) g/dL Hct 46.3 (42.0-52.0) % MCV 90.3 (80-100) fl MCH 30.8 (26-34) pg MCHC 34.1 (32-36) g/dl RDW 13.4 (11.5-14.5) % Plt Count 222 (150-375) k/mm3 MPV 10.0 (7.4-10.4) fl Immature Gran % (Auto) 0.2 (0-0.5) % Neut % (Auto) 71.0 (45.5-73.1) % Lymph % (Auto) 13.1 L (18.3-44.2) % [place] % (Auto) 12.9 H (2.6-8.5) % Eos % (Auto) 1.7 (0-4.4) % Baso % (Auto) 1.1 (0.2-1.2) % Lymph # (Auto) 0.71 L (0.9-3.2) K/mm3 [place] # (Auto) 0.7 H (0.1-0.6) K/mm3 Eos # (Auto) 0.1 (0-0.3) K/mm3 Baso # (Auto) 0.1 (0.0-0.1) K/mm3 Abs Immat Gran (auto) 0.01 (0.00-0.031) K/mm3 Absolute Neuts (auto) 3.9 (1.3-6.7) K/mm3 Absolute Nucleated RBC 0.000 (0.0-0.012) K/mm3 Nucleated RBC % 0.0 (0.0-0.2) % Sodium 138 (137-145) mmol/L Potassium 4.0 (3.4-5.0) mmol/L Chloride 104 (98-107) mmol/L Carbon Dioxide 25 (22-30) mmol/L Anion Gap 9 (4-12) mmol/L BUN 12 (9-20) mg/dL Creatinine 1.08 (0.7-1.3) mg/dL Estim Creat Clear Calc 49 ml/min Estimated GFR > 60 (59 - ) Glucose 105 (65-110) mg/dL Calcium 9.0 (8.4-10.2) mg/dL Total Bilirubin 1.1 (0.2-1.3) mg/dL AST 33 (17-59) U/L ALT 31 (6-50) U/L Alkaline Phosphatase 79 (38-126) U/L Total Protein 7.0 (6.3-8.2) g/dL Albumin 4.4 (3.5-5.1) g/dL Lipase 42 (23-300) U/L Urine Color Yellow (Yellow) Urine Appearance Clear (Clear) Urine pH 7.5 (5.0-9.0) Ur Specific [place] 1.010 (1.001-1.035) Urine Protein Negative (Negative) mg/dL Urine Glucose (UA) Negative (Negative) mg/dL Urine Ketones Negative (Negative) mg/dL Ur Blood (Man) Negative (Negative) Urine Nitrate Negative (Negative) Urine Bilirubin Negative (Negative) Urine Urobilinogen 0.2 (<2.0) mg/dL Leukocyte Esterase Rfl Negative (Negative) JEEVAN/UL Imaging Data Radiologist's impression: ITS Impressions Abdomen/Pelvis CT 11/25/24 10:59 IMPRESSION: 1. No evidence of appendicitis, diverticulitis or intestinal obstruction. 2. Cholelithiasis. 3. Minimal fullness of the left ureter and renal pelvis. Discharge Plan Discharge Clinical Impression: Abdominal pain Patient Disposition: Home, Self-Care Condition: Stable Instructions: Antibiotic Form, Constipation (DC), Abdominal Pain (ED) Additional Instructions: try getting gatoraid 2 32 0z bottles. can poor 1/2 of entire bottle of miralax in each gatoraid and refrigerate for a few hours. drink one bottle over 4 hrs. wait 4 - 6 hrs. If not having results can drink the other bottle. Patient Language: Sinhala Prescriptions: New naproxen [Naprosyn] 500 mg tablet 500 mg PO BID Qty: 20 0RF No Action amlodipine 10 mg tablet 10 mg PO QAM simvastatin 10 mg tablet 10 mg PO EVERY OTHER DAY ramipril 10 mg capsule 10 mg PO HS coenzyme Q10 [CoQ-10] 30 mg capsule 30 mg PO DAILY PreserVision AREDS-2 250-90-40-1 mg capsule 1 tablet PO BID docusate sodium 100 mg capsule 100 mg PO DAILY PRN (Reason: Constipation) gabapentin 300 mg capsule 300 mg PO QHS triamcinolone acetonide 0.1 % ointment 1 ea TOPICAL BID PRN (Reason: Rash) Prevagen 1 tab-cap PO DAILY aspirin 81 mg Tablet,Delayed Release (Dr/Ec) 81 mg PO DAILY polyethylene glycol 3350 [Miralax] 17 gram powder in packet 17 g PO QAM PRN (Reason: CONTSTIPATION) meclizine 12.5 mg tablet 12.5 mg PO TID PRN (Reason: dizziness) Qty: 10 0RF sildenafil [Viagra] 25 mg Tablet 25 mg PO DAILY PRN (Reason: Sexual Activity) finasteride 5 mg Tablet 5 mg PO DAILY Follow-up/Referrals: Kendrick,MD Lan [Primary Care Provider] -
--- OUTSIDE RECORDS SUMMARY | 2024-11-25 11:12 | XMS_ITS | Clinical Summary ---
Author Organization [facility] Address [address] [place] [address] Phone Care Team Providers Care Raw Silk Grader Name Role Phone Jenni Delarosa NP Primary Care Provider [phone] Medications Medication Sig Dispensed Refills Start Date [...] Comments Blood Pressure 132/70 10/10/2019 9:42 AM BUSINESS TRANSFORMATION CONSULTANT Pulse 72 10/10/2019 9:42 AM BUSINESS TRANSFORMATION CONSULTANT Temperature 36.6 C (97.8 F) 10/10/2019 9:42 AM BUSINESS TRANSFORMATION CONSULTANT Respiratory Rate - - Oxygen Saturation - - Inhaled Oxygen Concentration - - Weight 92.1 kg (203 lb) 10/10/2019 9:42 AM BUSINESS TRANSFORMATION CONSULTANT Height 185.4 cm (6' 1 ) 10/10/2019 9:42 AM BUSINESS TRANSFORMATION CONSULTANT Body Mass Index 26.78 10/10/2019 9:42 AM BUSINESS TRANSFORMATION CONSULTANT Plan of Treatment Health Maintenance Due Date Last Done Comments Influenza Vaccine (#1) 2024 05/29/2013 Pneumococcal PPSV23/PCV13 65 + Years / Low and Medium Risk Completed 08/09/2017, 09/04/2007 Care Teams Raw Silk Grader Relationship Specialty Start Date End Date Jenni Delarosa NP [facility] [address] PCP - General Internal Medicine 03/20/19
--- OUTSIDE RECORDS SUMMARY | 2024-11-25 11:13 | XMS_ITS | Clinical Summary ---
Author Organization [facility] [employer] Address [address] [place] [address] Care Team Providers Care Flash Designer Name Role Phone Jenni Delarosa PURVI-DIAL EQUIPMENT ENGINEER Primary Care Provider + Source Comments [employer],non-owned Affiliates and Associated Physician Practices is amultiple site organization consisting of ambulatory clinics and hospital sitesin [place], [place], [place] and [place]. This disclosure is being madepursuant to the Care Everywhere program and may not contain all information available regarding this patient. Last updated 18.[employer]Cloud Medications * Be aware that medications may [...] Comments Blood Pressure 143/90 07/18/2017 1:20 PM PAINT CREW SUPERVISOR Pulse 84 07/18/2017 1:20 PM PAINT CREW SUPERVISOR Temperature - - Respiratory Rate - - Oxygen Saturation 98% 07/18/2017 1:20 PM PAINT CREW SUPERVISOR Inhaled Oxygen Concentration - - Weight 88.5 kg (195 lb) 07/18/2017 8:06 AM PAINT CREW SUPERVISOR Height 188 cm (6' 2 ) 07/18/2017 8:06 AM PAINT CREW SUPERVISOR Body Mass Index 25.04 07/18/2017 8:06 AM PAINT CREW SUPERVISOR Plan of Treatment Health Maintenance Due Date [...] age to complete this topic Care Teams Flash Designer Relationship Specialty Start Date End Date Jenni Delarosa APRN-DIAL EQUIPMENT ENGINEER [address] [address] PCP - General 06/13/17
--- OUTSIDE RECORDS SUMMARY | 2024-11-25 11:13 | XMS_ITS | Referral Summary ---
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
--- OUTSIDE RECORDS SUMMARY | 2024-11-25 11:13 | XMS_ITS | Encounter Summary ---
Author Organization [facility] Address [address] [place] [address] Care Team Providers Care Rn Imcu Name Role Phone Jenni Delarosa CONTRACTS MANAGER-CHECK AIRMAN Primary Care Provider + Encounter Details Date Type Department Care Team (Late st Contact Info) Description 03/10/2023 Lab Requisition [facility] Lab [address] [facility] [place] [id number] Josué Porter MD [address] [place] [address] Social History Tobacco Use Types Packs/Day Years [...] AM CDT) Case Report Dermatopathology Report Case: [id number] Authorizing Provider: Josué Porter MD Collected: 03/08/2023 12:00 AM Ordering Location: [facility] Received: 03/10/2023 07:02 AM Pathologist: [...] characteristic determined by the Dermatopathology Laboratory at [facility], directed by Dr. Eliud Dixon. These tests need not be, and therefore are not, approved by the [place] Food and Drug Administration. The tests are used for clinical purposes. Billing Codes Specimen Charges Stain Charges 75073 1 12:53 PM CDT DERMATOPATHOLOGY LABORATORY Embedded Images 12:53 PM CDT DERMATOPATHOLOGY LABORATORY Pathology/Cytolog y TISSUE SPECIMEN FROM SKIN / Unknown 03/08/2023 03/10/2023 7:02 AM CDT Josué Porter MD LAB - PATHOLOGY/CYTO LOGY ORDERABLES DERMATOPATHOLOGY LABORATORY [facility] - Department of Dermatology [address] [phone] documented in this encounter Visit Diagnoses Not on filedocumented in this encounter Care Teams Rn Imcu Relationship Specialty Start Date End Date Jenni Delarosa APRN-JENNIFER [address] [address] PCP - General 06/13/17 documented as of this encounter
--- OUTSIDE RECORDS SUMMARY | 2024-11-25 11:13 | XMS_ITS | Encounter Summary ---
Author Organization [facility] Address [address] [facility] [place] [address] Care Team Providers Care Oil Burner Journeyman Name Role Phone Jenni Delarosa BLANCHARD GRINDER OPERATOR-MESS ATTENDANT CREW Primary Care Provider + Encounter Details Date Type Department Care Team (Late st Contact Info) Description 05/06/2020 Lab Requisition [facility] DermPath Lab [address] [place] [phone] Josué Porter MD [address] [place], [place] [phone] Social History Tobacco Use Types Packs/Day Years [...] AM CDT) Case Report Dermatopathology Report Case: [id number] Authorizing Provider: Josué Porter MD Collected: 05/06/2020 12:00 AM Ordering Location: [facility] DermPath Lab Received: 05/06/2020 09:43 AM Pathologist: Antonia Brandon MD Specimen: Slide(s), Left chest, OSC# [id number] 0 3:14 PM CDT DERMATOPATHOLOGY LABORATORY Final Diagnosis Specimen A. Slide(s), Left chest, OSC# [id number]: DERMAL LYMPHOCYTIC INFILTRATE (D48.5) (see microscopic description and comment) 0 3:14 PM T DERMATOPATHOLOGY LABORATORY Clinical History Materials received from: [employer] [address] [place] [id number] Received at the request of Dr. Josué Porter, a consult will be performed on 1 (H&E) slide(s) labeled [id number]. Bx Date: 04/28/2020 R/O BCC. All slides returned. Any additional sections, special stains or immunohistochemical stains performed by our laboratory will be kept here on file. 0 3:14 PM T DERMATOPATHOLOGY LABORATORY Microscopic Description Specimen A. Slide(s), Left chest, OSC# [id number]: Sections show an unremarkable epidermis from a [...] characteristic determined by the Dermatopathology Laboratory at [facility], directed by Dr. Eliud Dixon. These tests need not be, and therefore are not, approved by the [place] Food and Drug Administration. The tests are used for clinical purposes. Billing Codes Specimen Charges Stain Charges 06341 1 0 3:14 PM CDT DERMATOPATHOLOGY LABORATORY Embedded Images 0 3:14 PM CDT DERMATOPATHOLOGY LABORATORY Pathology/Cytolog y SLIDE / Unknown 05/06/2020 05/06/2020 9:43 AM CDT Josué Porter MD LAB - PATHOLOGY/CYTO LOGY ORDERABLES DERMATOPATHOLOGY LABORATORY [facility] - Department of Dermatology [address], [address] [phone] documented in this encounter Visit Diagnoses Not on filedocumented in this encounter Care Teams Oil Burner Journeyman Relationship Specialty Start Date End Date Jenni Delarosa APRN-JENNIFER [address] [phone] PCP - General 06/13/17 documented as of this encounter
--- OUTSIDE RECORDS SUMMARY | 2024-11-25 11:13 | XMS_ITS | Clinical Summary ---
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 Gender Identity Not on file Sexual Orientation [...] vaccine 65+ Completed 08/09/2017, 09/2007 Insurance [facility]IC[facility] Address: [address] [place] [address] MEDICARE [facility] MEDICARE [facility] LIFE [facility] Care Teams Shrimp Peeler Relationship Specialty Start Date End Date Mi Maldonado NP PCP - General Nurse Practitioner 02/21/23 Khai Tavarez MD [address] [address] Consulting Physician Cardiology 07/03/24
[2024-11-25 11:48] VITALS: BP 138/81; PULSE 65; RESP 16; O2SAT 100
== END 2024-11-25 13:12 | disposition home or self-care (01) ==
PROVIDERS: Emergency Provider Emergency Medicine; PCP Family Medicine
DX: R10.9 Unspecified abdominal pain (principal); Z79.82 Long term (current) use of aspirin; I48.91 Unspecified atrial fibrillation; E78.5 Hyperlipidemia, unspecified; I10 Essential (primary) hypertension
CPT/HCPCS: 36415; 74177; 80053; 81003; 83690; 85025; 99284; Q9967

== ENCOUNTER 2025-04-11 09:45 | Outpatient (RCR) | payer MEDICARE, BC, OTHER, SELFPAY ==
--- NOTE | 2025-02-17 15:12 | OPREHPOC ---
Outpatient Therapy Plan of Care This is a Multidisciplinary Plan of Care that may contain components documented by all disciplines (PT, OT, and ST.) PT Problem 1 PT Problem #1 Knowledge Deficit PT Goal 1 Goal / Goal Update Patient to demonstrate independence with HEP for improved self-reliance of symptom management. Target Visit 4 PT Problem 2 PT Problem #2 Impaired Endurance PT Goal 1 Goal / Goal Update 1. Patient to report increased sitting tolerance to >1 hour with minimal reports of pain to improve endurance required for traveling to his home town . 2. ??Patient to report improved standing tolerance of >30 minutes for increased ADL endurance. 3. Patient to improve distance ambulated during 6MWT from 875 feet to 1000 feet to demonstrate an improvement in ADL endurance. Target Visit 8 PT Problem 3 PT Problem #3 Impaired Strength PT Goal 1 Goal / Goal Update Patient to demonstrate R hip abduction strength >= 4+/5 for improved functional stability required for ADLs. Target Visit 8 PT Problem 4 PT Problem #4 Pain PT Goal 1 Goal / Goal Update Patient to decrease subjective reports of R hip pain to <4/10 with prolonged standing for improved ADL tolerance. Target Visit 4
--- NOTE | 2025-02-17 15:12 | PTOPEVAL1 ---
Assessment and note entered by Anna Cadena, PT Evaluation Information Assessment Status Evaluation ICD-10 Condition Codes (PT) Pain in low back M54.50,Pain in right hip M25.551 Onset 6 months Subjective Information Pt reports his low back and R hip pain have been worsening for 3 months now. He first noticed pain in his hip after dealing with plantar fasciitis at the beginning of the year. Has been wearing different inserts for his pain. He thinks from walking funny on his heel he has started to get aches and pains in his R knee, hip, and low back. He is an avid walker about a mile a day but has since stopped due to pain. He reports it gets worse after 30-40 feet. He is now using a cane to help take the weight off which helps his discomfort. He uses a grocery cart to ease his pain, also alleviated with sitting. He reports worsening/steady tightness in his glute with prolonged sitting, has to reposition often. Has been using ibuprofen and took a steroid pack last week that has seemed to help. 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 Reported Pain Level Pain Score 3: Self Report Assessment PT Clinical Summary Pt is a 84 year old male who presents to physical therapy with a primary complaint of R hip pain worsening over the last 3 months. Pt demonstrates T hip abduction weakness, pain with prolonged sitting and standing, decreased mobility, gait deficit, and decreased endurance that limit their ability to perform ADLs. Repeated motion assessment was unclear for directional preference this date and patient denies radicular sxs past his upper lateral thigh. Pt will benefit from skilled physical therapy to address the above listed deficits and return to PLOF. HEP instructed and written handout provided, EX tolerated well with no adverse effects to note post-session. Pt was educated on importance of adherence to HEP. Pt was also educated on anatomy, prognosis, home modalities, and PT POC. Plan of Care Interventions Gait Training,Hot Pack/Cold Pack,Manual Therapy, Mechanical Traction,Neuro Re-education,Therapeutic Activities,Therapeutic Exercise PT Services Indicated Yes Treatment Frequency and 2x/wk for 8 sessions Duration These treatments will address the objective and functional deficits as defined above. The patient will be advanced safely and appropriately in order for the patient to progress towards his/her prior level of function. Additional exercises will be introduced and as well as a comprehensive home exercise program upon discharge, if needed, ?to ensure carryover of functional gains achieved in the clinic. This treatment plan has been reviewed and agreement upon by the patient.
--- NOTE | 2025-04-11 10:40 | OPREHPOC ---
Outpatient Therapy Plan of Care This is a Multidisciplinary Plan of Care that may contain components documented by all disciplines (PT, OT, and ST.) PT Problem 1 PT Problem #1 Knowledge Deficit PT Goal 1 Goal / Goal Update Patient to demonstrate independence with HEP for improved self-reliance of symptom management. 04-11-25 d/c goal met Target Visit 4 Progress Met PT Problem 2 PT Problem #2 Impaired Endurance PT Goal 1 Goal / Goal Update 1. Patient to report increased sitting tolerance to >1 hour with minimal reports of pain to improve endurance required for traveling to his home town . 2. Patient to report improved standing tolerance of >30 minutes for increased ADL endurance. 3. Patient to improve distance ambulated during 6MWT from 875 feet to 1000 feet to demonstrate an improvement in ADL endurance. 04-11-25 d/c goals met Target Visit 8 Progress Met PT Problem 3 PT Problem #3 Impaired Strength PT Goal 1 Goal / Goal Update Patient to demonstrate R hip abduction strength >= 4+/5 for improved functional stability required for ADLs. 25 d/c goal not met, 4-/5 Target Visit 8 Progress Not Met PT Problem 4 PT Problem #4 Pain PT Goal 1 Goal / Goal Update Patient to decrease subjective reports of R hip pain to <4/10 with prolonged standing for improved ADL tolerance. 25 d/c goal met, 3/10 pain at worst Target Visit 4 Progress Met
--- NOTE | 2025-04-11 10:40 | PTOPDC ---
Assessment and note entered by Kira Hanna, PT Assessment Status Discharge ICD-10 Condition Codes (PT) Pain in low back M54.50,Pain in right hip M25.551 Onset 6 months Subjective Information have not been good about doing my exercises; pain is less than when I started PT; have not been walking a lot or pushing it much at home with things; not using the cane any longer; R heel pain is less and feel like walking is better; Reported Pain Level Pain Score Self Report Additional Pain Score Comments pain range in the past week: 1-310; R lateral hip increase pain: walking/standing 30-40 minutes; decrease pain: sit, rest, not using ice,heat or pain meds sitting is not limited, but not tested it, just doing light things at home light twinge in L knee and with in/out car and twist knee, it hurts; educated on correct car transfer with sitting down and avoid twisting leg and back-- reports his car is low and he has problems getting into car Assessment PT Clinical Summary Live has received 8 PT sessions. With today's assessment: compare to initial eval: pain rating from 3-6/10 to 1-3/10 in R lateral hip self assessment with back index self rating of 38 to 10% limitation in activity; 6 minute walking test distance from 875' with report of increase pain to 1250' with pain same at /10; strength of R hip abduction 4-/5; The goals were met, except hip abduction strength on R. Discharge PT. He is to continue with HEP and activity as tolerated. Plan of Care PT Services Indicated No
== END 2025-04-11 14:14 | disposition home or self-care (01) ==
LOC: ANHPT 09:45
PROVIDERS: PCP Family Medicine; Visit Provider Physician Assistant Surgical
DX: M54.50 Low back pain, unspecified (principal); M70.61 Trochanteric bursitis, right hip
CPT/HCPCS: 97110; 97112; 97140; 97162; 97530

== ENCOUNTER 2025-06-12 12:45 | Outpatient (CLI) | payer MEDICARE, BC, OTHER, SELFPAY ==
--- NOTE | ~2025-06-12 | MR_ITS ---
EXAMINATION: MR lumbar spine wo con DATE: 06/12/2025 13:29 INDICATION: Lumbago with sciatica, right-sided. TECHNIQUE: Magnetic resonance imaging (MRI) of the lumbar spine was performed without intravenous contrast. Sequences included sagittal T2-weighted FSE, sagittal T2-weighted FS FSE, sagittal T1-weighted FSE, and axial T2-weighted FSE. COMPARISON: Lumbar spine radiographs 02/07/25 FINDINGS: There is 8 degrees levocurvature of lumbar spine. There is 3 mm retrolisthesis of L2 on L3. There is mild chronic height loss of most of the vertebral bodies. There is severely decreased disc height at L2-L3, moderately decreased disc height at L3-L4, and severely decreased disc height at L4-L5 and L5-S1. The distal spinal cord signal intensity is normal. The conus medullaris is at L1. The following disc levels are specifically discussed: L1-L2: The disc does not extend beyond the endplate margin. There is mild bilateral facet joint osteoarthritis. There is no neural foraminal stenosis. There is no central canal stenosis. L2-L3: The disc is bulging and has an annular fissure. There is moderate bilateral facet joint osteoarthritis. There is moderate bilateral neural foraminal stenosis. There is mild central canal stenosis. L3-L4: The disc is bulging and has an annular fissure. There is mild bilateral facet joint osteoarthritis. There is mild bilateral neural foraminal stenosis. There is mild central canal stenosis. L4-L5: The disc is bulging and has an annular fissure. There is mild right and severe left facet joint osteoarthritis. There is moderate bilateral neural foraminal stenosis. There is mild central canal stenosis. L5-S1: The disc is bulging and has an annular fissure. There is severe bilateral facet joint osteoarthritis. There is moderate bilateral neural foraminal stenosis. There is mild central canal stenosis. IMPRESSION: 1. Severe lumbar spondylosis. Reviewed, dictated and finalized at location E.
== END 2025-06-12 12:46 | disposition home or self-care (01) ==
LOC: MICIMG 12:47
PROVIDERS: PCP Family Medicine; Visit Provider Orthopaedic Surgery
DX: M54.41 Lumbago with sciatica, right side (principal); M47.896 Other spondylosis, lumbar region
CPT/HCPCS: 72148